=== PATIENT | male | born 1965 | race Caucasian/White ===

== ENCOUNTER 2017-04-29 19:07 | Observation (INO) | payer OTHER ==
[2017-04-29] MEDS ORDERED: Sodium Chloride 0.9% 2.5 ML Syringe FLUSH PRN (19:23)
[2017-04-29] MEDS ORDERED: Aspirin 81 MG Tab.Chew PO ONE (19:23)
[2017-04-29] MEDS ORDERED: Pantoprazole 40 MG Vial IVPUSH ONE (19:23)
[2017-04-29] MEDS ORDERED: Sodium Chloride 0.9% 10 ML Syringe FLUSH PRN (19:23)
[2017-04-29] MEDS ORDERED: Ondansetron 4 MG/2 ML SDV IVPUSH ONE (19:29)
--- NOTE | 2017-04-29 19:29 | EDM.PDOC ---
ED HPI GENERAL MEDICAL PROBLEM - General Chief Complaint: Chest Pain Stated Complaint: BP, PAIN ON THE RT SIDE OF BODY Time Seen by Provider: 04/29/17 19:14 - History of Present Illness INITIAL COMMENTS - FREE TEXT/NARRATIVE: HISTORY AND PHYSICAL: History of present illness: The patient is a 51-year-old male who follows at [facility] and has borderline hypercholesterolemia and hypertension for which he was placed on cholesterol meds but no blood pressure meds and presents with a long-standing history of several years of episodic left chest discomfort dating back to 2007. The patient states he has had evaluation of this in the past with a provider at [facility] and says he may have had a stress test here about a year ago and he says that he doesn't think much of this episodic left-sided chest pain as it occurs frequently and is not associated with activity or food ingestion. He has no GI history that he is aware of and no pulmonary history. The patient says that these episodes will happen on a daily basis and the last 4. Of time and it seemed to go away on their own. He presents today because for the last 1 week the episodes of been occurring more frequently and today the discomfort has been continuous. The pain does radiate to his shoulder on the left but not down his arm or to his jaw. It is not associated with shortness of breath or vomiting but he has had nausea with this discomfort. The patient says that he has had some dizziness over the last few days as well when he was working in some cabinets on his hands and knees he would get up and feel lightheaded but not dizzy and he would not pass out or blackout. He has no head neck or back pain and no extremity weakness or neurosensory changes. The patient did not take any medication prior to coming here. In the past he has not tried any over- the-counter meds for this discomfort. He has a significant social history only that he has several drinks per week but he has no smoking or drug use. His family history is significant for father who had an DC at 53 years of age but according to the patient and his father had a very poor lifestyle which contributed to his heart problems. He currently says he has difficulty describing the discomfort and rates it as a 5/10. Review of systems: As per history of present illness and below otherwise all systems reviewed and negative. Past medical history: As per history of present illness and as reviewed below otherwise noncontributory. Surgical history: As per history of present illness and as reviewed below otherwise noncontributory. Social history: No reported history of drug or alcohol abuse. Family history: As per history of present illness and as reviewed below otherwise noncontributory. Physical exam: Gen.: Well-developed well-nourished man who is nontoxic and overweight but is speaking clearly and easily in the ED. Vital signs of the note by me HEENT: Atraumatic, normocephalic, pupils reactive, negative for conjunctival pallor or scleral icterus, mucous membranes moist, throat clear, neck supple, nontender, trachea midline. Lungs: Clear to auscultation, breath sounds equal bilaterally, chest nontender. Heart: S1S2, regular, negative for clicks, rubs, or JVD. Abdomen: Soft, nondistended, nontender. Negative for masses or hepatosplenomegaly. Negative for costovertebral tenderness. Pelvis: Stable nontender. Genitourinary: Deferred. Rectal: Deferred. Extremities: Atraumatic, negative for cords or calf pain. Neurovascular unremarkable. No pedal edema or leg asymmetry Neuro: Awake, alert, oriented. Cranial nerves II through XII unremarkable. Cerebellum unremarkable. Motor and sensory unremarkable throughout. Exam nonfocal. Diagnostics: EKG chest x-ray CBC CMP troponin amylase lipase d-dimer INR Therapeutics: IV O2 monitor Protonix Zofran nitroglycerin aspirin Please note that according to the computer the patient did have a NM stress test on February 062015 which yielded an EF of 65% and no evidence of any ischemia I discussed with the patient and significant other at the bedside at length all testing results and have recommended observation admission. He says that this is been going on for so long he would prefer to do an outpatient workup at [facility] with a provider that he has there. He says that the discomfort did improve significantly and is almost gone after the nitroglycerin. I again cautioned him that he should be observed as this may be cardiac in etiology and he still declines. He understands bursa and benefits and would like to be discharged home. Impression: Episodic chest pain acute on chronic Definitive disposition and diagnosis as appropriate pending reevaluation and review of above. chest Pain Score (Numeric/FACES): 5 - Related Data Allergies Allergy/AdvReac Type Severity Reaction Status Date / Time Penicillins Allergy Cannot Verified 10/03/15 06:57 Remember Home Meds: Home Meds atorvaSTATin [Lipitor] 0 mg PO BEDTIME 04/29/17 [History] Past Medical History - Past Health History Medical/Surgical History: Denies Medical/Surgical History HEENT History: Reports: None Cardiovascular History: Reports: High Cholesterol Other Cardiovascular History: stress induced angina Respiratory History: Reports: None Gastrointestinal History: Reports: None Genitourinary History: Reports: Renal Calculus Musculoskeletal History: Reports: None Neurological History: Reports: None Psychiatric History: Reports: None Endocrine/Metabolic History: Reports: Obesity/BMI 30+ Hematologic History: Reports: None Immunologic History: Reports: None Dermatologic History: Reports: None - Infectious Disease History Infectious Disease History: Reports: None - Past Surgical History HEENT Surgical History: Reports: None Musculoskeletal Surgical History: Reports: Arthroscopic Knee Social & Family History - Family History Family Medical History: Noncontributory HEENT: Reports: None Cardiac: Reports: DC Endocrine/Metabolic: Reports: Diabetes, type II - Tobacco Use Smoking Status *Q: Never Smoker - Alcohol Use Days Per Week of Alcohol Use: 3 Number of Drinks Per Day: 4 Total Drinks Per Week: 12 - Recreational Drug Use Recreational Drug Use: No ED ROS GENERAL - Review of Systems Review Of Systems: ROS reveals no pertinent complaints other than HPI. ED EXAM, GENERAL - Physical Exam Exam: See Below (See dictation) Course - Vital Signs Last Recorded V/S: Last Vital Signs Temp 36.3 C 04/29/17 19:14 Pulse 82 04/29/17 20:05 Resp 17 04/29/17 20:05 BP 113/70 04/29/17 20:05 Pulse Ox 96 04/29/17 20:05 - Orders/Labs/Meds Orders: Active Orders 24 hr Category Date Time Status Cardiac Monitoring [RC] . DIRECTED Care 04/29/17 19:23 Active EKG Documentation Completion [RC] STAT Care 04/29/17 19:23 Active Oxygen Therapy, ED [RC] ASDIRECTED Care 04/29/17 19:23 Active Pulse Oximetry [RC] ASDIRECTED Care 04/29/17 19:23 Active Chest 1V Frontal [CR] Stat Exams 04/29/17 19:23 Taken Sodium Chloride 0.9% [Saline Flush] Med 04/29/17 19:23 Active 10 ml FLUSH ASDIRECTED PRN Sodium Chloride 0.9% [Saline Flush] Med 04/29/17 19:23 Active 2.5 ml FLUSH ASDIRECTED PRN Saline Lock Insert [OM.PC] Stat Oth 04/29/17 19:23 Ordered Medication Orders Sodium Chloride (Saline Flush) 10 ml FLUSH ASDIRECTED PRN PRN Reason: Keep Vein Open Last Admin: 04/29/17 19:48 Dose: 10 ml Sodium Chloride (Saline Flush) 2.5 ml FLUSH ASDIRECTED PRN PRN Reason: Keep Vein Open Last Admin: 04/29/17 19:50 Dose: 2.5 ml Labs: Laboratory Tests 04/29/17 04/29/17 04/29/17 Range/Units 19:44 19:44 19:44 WBC 5.78 (4.0-11.0) K/uL RBC 4.52 (4.50-5.90) M/uL Hgb 12.9 L (13.0-17.0) g/dL Hct 37.8 L (38.0-50.0) % MCV 83.6 (80.0-98.0) fL MCH 28.5 (27.0-32.0) pg MCHC 34.1 (31.0-37.0) g/dL RDW Std Deviation 39.5 (28.0-62.0) fl RDW Coeff of Kenneth 13 (11.0-15.0) % Plt Count 157 (150-400) K/uL MPV 9.40 (7.40-12.00) fL Neut % (Auto) 54.9 (48.0-80.0) % Lymph % (Auto) 29.9 (16.0-40.0) % [place] % (Auto) 9.5 (0.0-15.0) % Eos % (Auto) 4.7 (0.0-7.0) % Baso % (Auto) 1.0 (0.0-1.5) % Neut # (Auto) 3.2 (1.4-5.7) K/uL Lymph # (Auto) 1.7 (0.6-2.4) K/uL [place] # (Auto) 0.6 (0.0-0.8) K/uL Eos # (Auto) 0.3 (0.0-0.7) K/uL Baso # (Auto) 0.1 (0.0-0.1) K/uL Nucleated RBC % 0.0 /100WBC Nucleated RBCs # 0 K/uL INR 0.99 (0.86-1.11) D-Dimer, Quantitative 0.30 (0.0-0.52) mg/LFEU Sodium 142 (136-146) mmol/L Potassium 3.7 (3.5-5.1) mmol/L Chloride 109 (98-110) mmol/L Carbon Dioxide 24 (21-31) mmol/L BUN 17 (6.0-23.0) mg/dL Creatinine 1.1 (0.6-1.5) mg/dL Est Cr Clr Drug Dosing TNP Estimated GFR (MDRD) > 60.0 ml/min Glucose 114 H (60-110) mg/dL Calcium 8.9 (8.8-10.8) mg/dL Total Bilirubin 0.4 (0.1-1.5) mg/dL AST 26 (5-40) IU/L ALT 42 (8-54) IU/L Alkaline Phosphatase 96 (40-150) Troponin I < 0.10 (0.0-0.29) NG/ML Total Protein 6.8 (6.0-8.0) g/dL Albumin 3.8 (3.5-5.0) g/dL Globulin 3.0 (2.0-3.5) g/dL Albumin/Globulin Ratio 1.3 (1.3-2.8) Amylase 45 (10-90) U/L Lipase 24 (7-80) U/L Meds: Medications Generic Name Dose Route Start Last Admin Trade Name Freq PRN Reason Stop Dose Admin Sodium Chloride 10 ml 04/29/17 19:23 04/29/17 19:48 Saline Flush FLUSH 10 ml ASDIRECTED PRN Administration Keep Vein Open Sodium Chloride 2.5 ml 04/29/17 19:23 04/29/17 19:50 Saline Flush FLUSH 2.5 ml ASDIRECTED PRN Administration Keep Vein Open Discontinued Medications Generic Name Dose Route Start Last Admin Trade Name Freq PRN Reason Stop Dose Admin Aspirin 324 mg 04/29/17 19:23 04/29/17 19:49 Aspirin PO 04/29/17 19:24 324 mg ONETIME ONE Administration Nitroglycerin 0.4 mg 04/29/17 19:30 04/29/17 20:00 Nitrostat SL 04/29/17 19:41 0.4 mg Q5M REINA Administration Ondansetron HCl 4 mg 04/29/17 19:29 04/29/17 19:51 Zofran IVPUSH 04/29/17 19:30 4 mg ONETIME ONE Administration Pantoprazole Sodium 80 mg 04/29/17 19:23 04/29/17 19:56 Protonix Iv IVPUSH 04/29/17 19:24 80 mg .BOLUS ONE Administration Departure - Departure Time of Disposition: 20:38 Disposition: Home, Self-Care 01 Condition: Good Clinical Impression: Chest pain Qualifiers: Chest pain type: unspecified Qualified Code(s): R07.9 - Chest pain, unspecified - Discharge Information Referrals: Josie Betancur RECORDS SUPERVISOR [Primary Care Provider] - Forms: ED Department Discharge Additional Instructions: The following information is given to patients seen in the emergency department who are being discharged to home. This information is to outline your options for follow-up care. We provide all patients seen in our emergency department with a follow-up referral. The need for follow-up, as well as the timing and circumstances, are variable depending upon the specifics of your emergency department visit. If you don't have a primary care physician on staff, we will provide you with a referral. We always advise you to contact your personal physician following an emergency department visit to inform them of the circumstance of the visit and for follow-up with them and/or the need for any referrals to a consulting specialist. The emergency department will also refer you to a specialist when appropriate. This referral assures that you have the opportunity for followup care with a specialist. All of these measure are taken in an effort to provide you with optimal care, which includes your followup. Under all circumstances we always encourage you to contact your private physician who remains a resource for coordinating your care. When calling for followup care, please make the office aware that this follow-up is from your recent emergency room visit. If for any reason you are refused follow-up, please contact the [facility] emergency department at and ask to speak to the emergency department charge nurse. [facility] [address] [place] [address] [facility] Primary [facility]- [facility] [address], [place] [address] Please contact her provider at [facility] for further care and evaluation as soon as you're able as we discussed. Please take 325 milligrams Ecotrin aspirin every day until you're followed up in the clinic. Please return to ER as needed and as we discussed. - My Orders Last 24 Hours: My Active Orders 04/29/17 19:23 Cardiac Monitoring [RC] . DIRECTED EKG Documentation Completion [RC] STAT Oxygen Therapy, ED [RC] ASDIRECTED Pulse Oximetry [RC] ASDIRECTED Chest 1V Frontal [CR] Stat Sodium Chloride 0.9% [Saline Flush] 10 ml FLUSH ASDIRECTED PRN Sodium Chloride 0.9% [Saline Flush] 2.5 ml FLUSH ASDIRECTED PRN Saline Lock Insert [OM.PC] Stat - Assessment/Plan Last 24 Hours: My Active Orders 04/29/17 19:23 Cardiac Monitoring [RC] . DIRECTED EKG Documentation Completion [RC] STAT Oxygen Therapy, ED [RC] ASDIRECTED Pulse Oximetry [RC] ASDIRECTED Chest 1V Frontal [CR] Stat Sodium Chloride 0.9% [Saline Flush] 10 ml FLUSH ASDIRECTED PRN Sodium Chloride 0.9% [Saline Flush] 2.5 ml FLUSH ASDIRECTED PRN Saline Lock Insert [OM.PC] Stat
[2017-04-29] MEDS: Nitroglycerin 0.4 MG Tab.SL SL SCH ×3 (19:50→20:00)
[2017-04-29 20:17] LABS: CHLORIDE,CL 109 mmol/L (98-110); SODIUM,NA 142 mmol/L (136-146)
[2017-04-29] MEDS ORDERED: Nitroglycerin 2% Oint 1 GM UD Packet TOP ONE (20:57)
[2017-04-29] MEDS ORDERED: Morphine 2 MG/ML Syringe IVPUSH PRN (22:43)
[2017-04-30] MEDS: Acetaminophen 325 MG Tab PO PRN ×2 (00:20→08:23)
[2017-04-30 08:52] VITALS: BP 136/77
--- NOTE | 2017-04-30 11:17 | CR ---
EXAM DATE: 04/29/17 PATIENT'S AGE: 51 Patient: HAL FUENTES Facility: [place], [place] Site . Site : [id number] Study: XRay Chest [id number]/16/2017 8:21:17 PM Ordering Physician: Maykel Edmondson Final Report: INDICATION: CHEST PAIN, SOB X1 WEEK TECHNIQUE: Chest 1 view COMPARISON: January 09, 2016 FINDINGS: Cardiovascular and mediastinum: Heart size and vasculature are normal in caliber and appearance. Mediastinum is within normal limits. Lungs and pleural space: No focal consolidation. No sign of pleural effusion. No pneumothorax. Bones and soft tissues: No significant findings. IMPRESSION: No acute cardiopulmonary disease. Dictated by Fei Lee MD @ 04/29/2017 8:25:37 PM Dictated by: Fei Lee MD @ 04/29/2017 20:25:46 (Electronic Signature) Report Signed by Proxy. [facility]
--- NOTE | 2017-04-30 13:32 | PCM.HP ---
H&P History of Present Illness - General Date of Service: 04/30/17 Admit Problem/Dx: Admission Diagnosis/Problem Admission Diagnosis/Problem Chest pain Source of Information: Patient History Limitations: Reports: No Limitations - History of Present Illness Initial Comments - Free Text/Narative: 51-year-old male with a history of hyperlipidemia presented to the emergency department with a chief complaint of chest pain with one-week onset. This patient was admitted for ACS rule out. He tells me that he did not have any significant further episodes of chest pain while admitted at the hospital when seen in the following morning. He was placed on telemetry, troponin 3 were trended all of which were unremarkable. At the time of discharge, he had no episodes of chest Pain. He had no other complaints. Denies shortness of breath. ER course: Troponin 1 negative Given nitroglycerin, pantoprazole, Zofran, full dose aspirin CBC, d-dimer, CMP are unremarkable. Chest x-ray unremarkable Headache Pain Score (Numeric/FACES): 3 chest Pain Score (Numeric/FACES): 2 - Related Data Allergies/Adverse Reactions: Allergies Allergy/AdvReac Type Severity Reaction Status Date / Time Penicillins Allergy Cannot Verified 10/03/15 06:57 Remember Home Medications: Home Meds atorvaSTATin [Lipitor] 0 mg PO BEDTIME 04/29/17 [History] Past Medical History - Past Health History Medical/Surgical History: Denies Medical/Surgical History HEENT History: Reports: None Cardiovascular History: Reports: High Cholesterol Other Cardiovascular History: stress induced angina Respiratory History: Reports: None Gastrointestinal History: Reports: None Genitourinary History: Reports: Renal Calculus Musculoskeletal History: Reports: None Neurological History: Reports: None Psychiatric History: Reports: None Endocrine/Metabolic History: Reports: Obesity/BMI 30+ Hematologic History: Reports: None Immunologic History: Reports: None Dermatologic History: Reports: None - Infectious Disease History Infectious Disease History: Reports: None - Past Surgical History HEENT Surgical History: Reports: None Musculoskeletal Surgical History: Reports: Arthroscopic Knee Social & Family History - Family History Family Medical History: Noncontributory HEENT: Reports: None Cardiac: Reports: ME Endocrine/Metabolic: Reports: Diabetes, type II - Tobacco Use Smoking Status *Q: Former Smoker Used Tobacco, but Quit: Yes Month Tobacco Last Used: December Second Hand Smoke Exposure: No - Caffeine Use Caffeine Use: Reports: Coffee, Soda, Tea - Alcohol Use Days Per Week of Alcohol Use: 2 Number of Drinks Per Day: 3 Total Drinks Per Week: 6 - Recreational Drug Use Recreational Drug Use: No H&P Review of Systems - Review of Systems: Review Of Systems: See Below General: Reports: No Symptoms HEENT: Reports: No Symptoms Pulmonary: Reports: No Symptoms Cardiovascular: Reports: Chest Pain. Denies: Dyspnea on Exertion, Orthopnea, PND, Edema, Lightheadedness, Syncope Gastrointestinal: Reports: No Symptoms Genitourinary: Reports: No Symptoms Musculoskeletal: Reports: No Symptoms Skin: Reports: No Symptoms Psychiatric: Reports: No Symptoms Neurological: Reports: No Symptoms Hematologic/Lymphatic: Reports: No Symptoms Immunologic: Reports: No Symptoms Exam - Exam Exam: See Below - Vital Signs Vital Signs: Last Vital Signs Temp 36.1 C 04/30/17 08:00 Pulse 77 04/30/17 08:00 Resp 18 04/30/17 08:00 BP 136/77 04/30/17 08:00 Pulse Ox 95 04/30/17 08:00 Weight: 127.233 kg - Exam General: Alert, Oriented, Cooperative HEENT: Conjunctiva Clear, EACs Clear, EOMI Neck: Supple, Trachea Midline Lungs: Clear to Auscultation, Normal Respiratory Effort Cardiovascular: Regular Rate, Regular Rhythm GI/Abdominal Exam: Normal Bowel Sounds, Soft, Non-Tender, No Organomegaly Back Exam: Normal Inspection, Full Range of Motion Extremities: Normal Inspection, Normal Range of Motion, Non-Tender, No Pedal Edema Peripheral Pulses: 2+: Dorsalis Pedis (L), Dorsalis Pedis (R) Skin: Warm, Dry, Intact Neurological: Cranial Nerves Intact, Reflexes Equal Bilateral - Patient Data Lab Results Last 24 hrs: Laboratory Results - last 24 hr 04/30/17 04/30/17 Range/Units 01:50 07:40 Troponin I < 0.10 < 0.10 (0.0-0.29) NG/ML Result Diagrams: 04/29/17 19:44 04/29/17 19:44 *Q Meaningful Use (ADM) - VTE *Q VTE Criteria *Q: - Stroke *Q Stroke Criteria *Q: - AMI *Q AMI Criteria *Q: Problem List Initiated/Reviewed/Updated: Yes Orders Last 24hrs: Active Orders 24 hr Category Date Time Status Antiembolic Devices [RC] Q12H Care 04/30/17 01:59 Active Discontinue Telemetry Monitoring [Cardiac Monitoring Care 04/30/17 10:55 Active Discontinue] [RC] Click to Edit May Shower [RC] ASDIRECTED Care 04/29/17 22:48 Active Ready for Discharge [RC] PER UNIT ROUTINE Care 04/30/17 09:17 Active Telemetry Monitoring [Cardiac Monitoring] [RC] Q8H Care 04/29/17 22:00 Active Sequential Compression Device [OM.PC] Routine Oth 04/29/17 23:00 Ordered Assessment/Plan Comment:: Assessment: #1. Chest pain #2. ACS rule out #3. History of hyperlipidemia, obesity Plan: #1. Admit to the floor for observation #2. Troponin 2 every 6 hours #3. Vital signs per floor routine #4. Cardiac telemetry Discharge summary: Admission date April 29, 2017 Discharge date April 30, 2017 Admission diagnosis: #1. Chest pain #2. ACS rule out #3. History of hyperlipidemia, obesity Discharge diagnosis: #1. Acute Jimenez syndrome ruled out #2. Chest pain resolved #3. History of hyperlipidemia, obesity Hospital course: 51-year-old male with a history of hyperlipidemia and obesity that presented to the emergency department on April 29 complaining of chest pain for 1 week onset. He was admitted for an ACS rule out. Telemetry and labs are unremarkable. At the time of discharge, the patient had no symptoms. He is to follow-up with the primary care provider, Dr. Chandler. He is also to get outpatient stress test. He is advised this could likely represent coronary artery disease such as angina. He is advised to return if he expresses any chest pain, palpitations, shortness of breath. Patient agrees to the plan. Disposition: To home Condition ON discharge: Stable
== END 2017-04-30 10:40 | disposition home or self-care (01) ==
LOC: MW.ED 19:07 → MW.MS 20:57
PROVIDERS: ADMIT Internal Medicine; ATTEND Internal Medicine
DX: R07.9 Chest pain, unspecified (principal); E78.00 Pure hypercholesterolemia, unspecified; I20.8 Other forms of angina pectoris; E11.9 Type 2 diabetes mellitus without complications; I25.2 Old myocardial infarction; E66.9 Obesity, unspecified; Z88.0 Allergy status to penicillin; Z79.899 Other long term (current) drug therapy; Z87.442 Personal history of urinary calculi; Z98.890 Other specified postprocedural states; Z87.891 Personal history of nicotine dependence
CPT/HCPCS: 36415; 71010; 80053; 82150; 83690; 84484; 85025; 85379; 85610; 93005; 96374; 96375; 99285; A9270; C9113; J2405; 99283; G0378

== ENCOUNTER 2017-09-14 09:43 | Day surgery (SDC) | payer OTHER ==
[~2017-09-14 09:43] MED LIST: Bupivacaine 0.5% 30 ML SDV ONE; Clindamycin Phosphate in D5W 600 MG in Premix Bag 50 BAG IV ONE; Lactated Ringers 1,000 ML IV SCH
--- NOTE | 2017-09-14 10:44 | PCM.PREANE ---
Preanesthetic Assessment - Anesthesia/Transfusion/Family Hx Anesthesia History: No Prior Anesthesia Family History of Anesthesia Reaction: No Transfusion History: No Prior Transfusion(s) Intubation History: Unknown (no history of intubation) - Review of Systems General: No Symptoms Pulmonary: No Symptoms Cardiovascular: No Symptoms Gastrointestinal: No Symptoms Neurological: No Symptoms Other: Reports: None - Physical Assessment Height: 1.85 m Weight: 124.738 kg ASA Class: 2 Mental Status: Alert & Oriented x3 Airway Class: Mallampati = 3 Dentition: Reports: Missing Tooth/Teeth (multiple ) Thyro-Mental Finger Breadths: 2 Mouth Opening Finger Breadths: 2 ROM/Head Extension: Full Lungs: Clear to Auscultation, Normal Respiratory Effort Cardiovascular: Regular Rate, Regular Rhythm - Allergies Allergies/Adverse Reactions: Allergies Allergy/AdvReac Type Severity Reaction Status Date / Time Penicillins Allergy Cannot Verified 09/09/17 11:44 Remember - Blood Blood Available: No - Anesthesia Plan Pre-Op Medication Ordered: None - Acknowledgements Anesthesia Type Planned: MAC Pt an Appropriate Candidate for the Planned Anesthesia: Yes Alternatives and Risks of Anesthesia Discussed w Pt/Guardian: Yes Pt/Guardian Understands and Agrees with Anesthesia Plan: Yes PreAnesthesia Questionnaire - Past Health History Medical/Surgical History: Denies Medical/Surgical History HEENT History: Reports: None Cardiovascular History: Reports: High Cholesterol, Hypertension Respiratory History: Reports: Sleep Apnea Other Respiratory History: uses CPAP Gastrointestinal History: Reports: None Genitourinary History: Reports: Renal Calculus, Other (See Below) Other Genitourinary History: "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" Musculoskeletal History: Reports: Fracture Other Musculoskeletal History: hx fx left arm Neurological History: Reports: None Psychiatric History: Reports: Anxiety, Depression Other Psychiatric History: depression and anxiety in the past, none recently Endocrine/Metabolic History: Reports: Obesity/BMI 30+ Hematologic History: Reports: None Immunologic History: Reports: None Dermatologic History: Reports: None - Infectious Disease History Infectious Disease History: Reports: None - Past Surgical History Head Surgeries/Procedures: Reports: None HEENT Surgical History: Reports: None Cardiovascular Surgical History: Reports: None Musculoskeletal Surgical History: Reports: Other (See Below) (tendon repair left knee under local anesthesia) - SUBSTANCE USE Smoking Status *Q: Former Smoker Tobacco Use Within Last Twelve Months: No Second Hand Smoke Exposure: No Days Per Week of Alcohol Use: 2 Number of Drinks Per Day: 3 Total Drinks Per Week: 6 Recreational Drug Use History: No - HOME MEDS Home Medications: Home Meds Hydrochlorothiazide 25 mg PO BEDTIME 09/09/17 [History] - CURRENT (IN HOUSE) MEDS Current Meds: Current Medications Lactated Ringer's (Ringers, Lactated) 1,000 mls @ 125 mls/hr IV ASDIRECTED REINA Discontinued Medications Bupivacaine HCl (Marcaine 0.5%) Confirm Administered Dose 30 ml .ROUTE .STK-MED ONE Stop: 09/14/17 07:23 Clindamycin Phosphate 600 mg/ (Sodium Chloride) 54 mls @ 100 mls/hr IV ONETIME ONE Stop: 09/13/17 22:46 Clindamycin Phosphate 600 mg/ (Premix) 50 mls @ 100 mls/hr IV ONETIME ONE Stop: 09/13/17 22:59
[2017-09-14] MEDS ORDERED: Clindamycin Phosphate in D5W 50 ML ONE (10:54)
[2017-09-14] MEDS ORDERED: Lidocaine 2% 5 ML SDV ONE (11:08)
[2017-09-14] MEDS ORDERED: Ondansetron 4 MG/2 ML SDV ONE (11:09)
[2017-09-14] MEDS ORDERED: Midazolam 1 MG/ML 2 ML SDV ONE (11:09)
[2017-09-14] MEDS ORDERED: fentaNYL 100 MCG/2 ML SDV ONE (11:09)
[2017-09-14] MEDS ORDERED: Propofol 200 MG/20 ML SDV ONE ×3 (11:09→12:03)
[2017-09-14] MEDS ORDERED: Lidocaine 1% 20 ML MDV ONE (11:31)
[2017-09-14] MEDS ORDERED: fentaNYL 100 MCG/2 ML SDV IVPUSH PRN (12:09)
[2017-09-14] MEDS ORDERED: Arista AH Absorbable Hemostat ONE (12:12)
--- NOTE | 2017-09-14 12:16 | PN ---
PATIENT IDENTIFICATION: The patient is a 52-year-old male. TIME: Approximately, 11:00 a.m. PREOPERATIVE DIAGNOSIS: Painful mass, right foot. PLANNED PROCEDURE: Excision of mass, right foot. CONSENT: Signed and in the chart. ANESTHESIA: MAC with local. The patient confirms n.p.o. since midnight. The H and P was completed by Dr. Barrios with no contraindications noted to surgery. ALLERGIES: The patient is allergic to penicillin. MEDICATIONS: The patient is currently on no medications. PAST MEDICAL HISTORY: Significant for hypertension, anxiety, depression, kidney stones, and sleep apnea. IMAGING: The patient had a chest x-ray with no evidence of acute cardiopulmonary disease. LABORATORY DATA: White blood cells 5.83, red blood cells 5.17, hemoglobin 13.8, hematocrit 43.7, platelets 205. Glucose 103, calcium 9.5, BUN 13, creatinine 1.03, sodium 145, potassium 4.3, chloride 104, CO2 of 28. IMPRESSION: The patient presents for excision of right foot mass today. All questions answered. The risks and benefits have been explained, and no guarantees have been expressed or implied. GREY HEAD /[id number]
[2017-09-14] MEDS ORDERED: Acetaminophen/HYDROcodone 325-5 MG Tab PO PRN (12:45)
--- NOTE | 2017-09-14 12:52 | PCM.OPNOTE ---
- General Post-Op/Procedure Note Date of Surgery/Procedure: 09/14/17 Operative Procedure(s): excision of mass right foot Anesthesia Technique: Local (10 cc of 1:1 mixture of 1% lidocaine plain and 0.5 % marcaine plain), MAC Primary Surgeon: Lance Keith Pathology: soft tissue from excised mass right foot EBL in mLs: 20 Complications: none Condition: Good Free Text/Narrative:: injectables: 8 cc of 1:1 mixture of 1% lidocaine plain and 0.5% marcaine plain materials: 4-0 vicryl, 4-0 prolene
--- NOTE | 2017-09-14 13:15 | PCM48HPAN ---
Post Anesthesia Note - EVALUATION WITHIN 48HRS OF ANESTHETIC Vital Signs in Normal Range: Yes Patient Participated in Evaluation: Yes Respiratory Function Stable: Yes Airway Patent: Yes Cardiovascular Function Stable: Yes Hydration Status Stable: Yes Pain Control Satisfactory: Yes Nausea and Vomiting Control Satisfactory: Yes Mental Status Recovered: Yes Resp Rate: 17 - COMMENTS/OBSERVATIONS Free Text/Narrative:: no anesthesia problems
[2017-09-14 13:46] VITALS: BP 121/92
--- NOTE | 2017-09-14 16:16 | OR ---
SURGEON: Lance Keith DPM DATE OF PROCEDURE: 09/14/2017 PREOPERATIVE DIAGNOSIS: Painful mass, right foot. POSTOPERATIVE DIAGNOSIS: Painful mass, right foot. OPERATIVE PROCEDURE: Excision of mass, right foot. ANESTHESIA: MAC with local. A local block consisted of a 1:1 mixture of 1% lidocaine plain and 0.5% Marcaine plain, totaling 10 mL. HEMOSTASIS: Combination of an Esmarch bandage applied about the rear foot and later after an Esmarch bandage exsanguination, above ankle pneumatic tourniquet inflated to a pressure of 250 mmHg. PATHOLOGY: Soft tissue excised from the area of the mass, right foot. ESTIMATED BLOOD LOSS: 20 mL. MATERIALS: Dary hemostatic agent, 4-0 Vicryl, 4-0 Prolene. INJECTABLES: At the conclusion of procedure, 8 mL of 1:1 mixture of 0.5% Marcaine plain with 1% lidocaine plain was infiltrated about the surgical site on the right foot proximal to the second and third toes. JUSTIFICATION FOR PROCEDURE: The patient has been suffering for several months from sharp pain due to a small, but potentially deep mass located just proximal to the second web space, that is between the bases or just proximal to the bases of the second and third toes of the right foot. The patient has noticed changes to the mass, which was initially superficial with a bright red appearance and then subsided, but appeared to go deeper. I discussed with the patient on multiple office visits, options to excise, or to wait out the mass for further changes; however, the patient's increasing pain as dictated that we proceed with excision and out of an abundance of caution. I recommended excision to be done in the operating room due to the potential deep nature of this mass. PROCEDURE IN DETAIL: Excision of mass, right foot. Incision was planned running from proximal to distal approximately 6 mm in length between the 2nd and 3rd rays of the right foot, essentially between the 2nd and 3rd metatarsophalangeal joints of the right foot on the plantar aspect. Esmarch bandage exsanguination was performed. An Esmarch bandage was held in place over the rear foot; however, the above ankle pneumatic tourniquet was not inflated at this time. Incision was then commenced and after incision with 15 blade down to subcutaneous layer, the curved mosquito hemostat was utilized to further dissect and probed for substance of the mass. This resulted in an immediate release of a stream of blood from the area of the mass indicating possible deep hematoma being released. Tissue was removed from this area and placed in formalin filled container for gross and histologic examination by pathology. The area was flushed with copious amounts of normal sterile saline, reinspected. At this point, bleeding became more intense and was cauterized with Bovie, and a full Esmarch bandage exsanguination of the foot was performed, and the pneumatic above ankle tourniquet was inflated to a pressure of 250 mmHg to allow for further probing with hemostasis. Additional tissue was removed and the area was flushed with copious amounts of normal sterile saline. Less than 1 g of Dary AH hemostatic agent was utilized to further stem any bleeding and closure was performed with the deep and subcutaneous tissues closed with 4-0 Vicryl suture and the superficial skin with 4-0 Prolene sutures. Betadine-soaked Xeroform gauze was placed over the incision site. The final local anesthesia was delivered and injected about the incision site, 8 mL total of a 1:1 mix of 1% lidocaine plain and 0.5% Marcaine plain. Kerlix gauze was placed over fluff gauze and all dressing secured with an Celestino bandage as the pneumatic tourniquet was deflated after 24 minutes of being utilized. Immediate hyperemic response was noted to all digits of the right foot. The patient tolerated the anesthesia and the procedure well. The patient was transported from the operating room to the recovery room with vital signs stable, and neurovascular status intact to the right foot. The patient was verbal prior to leaving the operating room, and the patient is to be discharged shortly with prescription for adequate analgesic care. The patient has his own crutches and will minimize weightbearing. A postoperative shoe was affixed to the patient's foot for protection. The patient is scheduled to be seen in my office in two days on September 16. The patient has my phone number should any concerns arise. At last, checked the dressings to the patient that are clean, dry, and intact. The patient has also been provided with a shower bag for bathing in order to keep the dressings clean, dry, and intact. GREY / ADILENE /[id number]
== END 2017-09-14 13:29 | disposition home or self-care (01) ==
LOC: MW.SDS 09:43
PROVIDERS: ATTEND Podiatrist Foot & Ankle Surgery
DX: G57.61 Lesion of plantar nerve, right lower limb (principal); I10 Essential (primary) hypertension; E78.00 Pure hypercholesterolemia, unspecified; G47.30 Sleep apnea, unspecified; F41.9 Anxiety disorder, unspecified; F32.9 Major depressive disorder, single episode, unspecified; E66.9 Obesity, unspecified; Z87.891 Personal history of nicotine dependence; Z79.899 Other long term (current) drug therapy; Z98.890 Other specified postprocedural states; Z88.0 Allergy status to penicillin
CPT/HCPCS: 28080; 88305; J2250; J2405; J3010; 00400; J2704

== ENCOUNTER 2018-01-03 09:00 | Emergency (ER) | payer OTHER ==
[2018-01-03 09:10] VITALS: BP 151/97
--- NOTE | 2018-01-03 09:27 | EDM.PDOC ---
ED HPI GENERAL MEDICAL PROBLEM - General Chief Complaint: Abdominal Pain Stated Complaint: LOWER ABD PAIN Time Seen by Provider: 01/03/18 09:17 - History of Present Illness INITIAL COMMENTS - FREE TEXT/NARRATIVE: HISTORY AND PHYSICAL: History of present illness: Patient 52-year-old male presents with acute right lower quadrant abdominal pain no vomiting no diarrhea no fever chills he denies any complaints or other concerns he denies trauma his only surgeries been prior foot surgery and he does have history of hypertension Review of systems: As per history of present illness and below otherwise all systems reviewed and negative. Past medical history: As per history of present illness and as reviewed below otherwise noncontributory. Surgical history: As per history of present illness and as reviewed below otherwise noncontributory. Social history: No reported history of drug or alcohol abuse. Family history: As per history of present illness and as reviewed below otherwise noncontributory. Physical exam: HEENT: Atraumatic, normocephalic, pupils reactive, negative for conjunctival pallor or scleral icterus, mucous membranes moist, throat clear, neck supple, nontender, trachea midline. Lungs: Clear to auscultation, breath sounds equal bilaterally, chest nontender. Heart: S1S2, regular, negative for clicks, rubs, or JVD. Abdomen: Soft, nondistended, localized tenderness in right lower quadrant no rebound no guarding Negative for masses or hepatosplenomegaly. Negative for costovertebral tenderness. Pelvis: Stable nontender. Genitourinary: Normal exam no hernia Rectal: Deferred. Extremities: Atraumatic, negative for cords or calf pain. Neurovascular unremarkable. Neuro: Awake, alert, oriented. Cranial nerves II through XII unremarkable. Cerebellum unremarkable. Motor and sensory unremarkable throughout. Exam nonfocal. Diagnostics: CBC CMP UA CT abdomen and pelvis Therapeutics: Normal saline 1 L bolus Impression: #1 acute right lower quadrant abdominal pain Definitive disposition and diagnosis as appropriate pending reevaluation and review of above. lower abdomen Pain Score (Numeric/FACES): 6 - Related Data Allergies Allergy/AdvReac Type Severity Reaction Status Date / Time Penicillins Allergy Cannot Verified 01/03/18 09:09 Remember Home Meds: Home Meds . 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" Musculoskeletal History: Reports: Fracture Other Musculoskeletal History: hx fx left arm Neurological History: Reports: None Psychiatric History: Reports: Anxiety, Depression Other Psychiatric History: depression and anxiety in the past, none recently Endocrine/Metabolic History: Reports: Obesity/BMI 30+ Hematologic History: Reports: None Immunologic History: Reports: None Dermatologic History: Reports: None - Infectious Disease History Infectious Disease History: Reports: Chicken Pox - Past Surgical History Head Surgeries/Procedures: Reports: None HEENT Surgical History: Reports: None Cardiovascular Surgical History: Reports: None Musculoskeletal Surgical History: Reports: Other (See Below) Other Musculoskeletal Surgeries/Procedures:: Right Foot surgery Social & Family History - Family History Family Medical History: Noncontributory HEENT: Reports: None Cardiac: Reports: CT Endocrine/Metabolic: Reports: Diabetes, type II - Tobacco Use Smoking Status *Q: Never Smoker - Caffeine Use Caffeine Use: Reports: Coffee - Recreational Drug Use Recreational Drug Use: No ED ROS GENERAL - Review of Systems Review Of Systems: ROS reveals no pertinent complaints other than HPI. ED EXAM, GENERAL - Physical Exam Exam: See Below (The dictation) Course - Vital Signs Last Recorded V/S: Last Vital Signs Temp 36.9 C 01/03/18 09:06 Pulse 98 01/03/18 09:06 Resp 16 01/03/18 09:06 BP 151/97 H 01/03/18 09:06 Pulse Ox 96 01/03/18 09:06 - Orders/Labs/Meds Orders: Active Orders 24 hr Category Date Time Status UA W/MICROSCOPIC [URIN] Stat Lab 01/03/18 09:21 Ordered Labs: Laboratory Tests 01/03/18 01/03/18 01/03/18 Range/Units 09:20 09:20 09:21 WBC 8.01 (4.0-11.0) K/uL RBC 5.03 (4.50-5.90) M/uL Hgb 14.4 (13.0-17.0) g/dL Hct 41.2 (38.0-50.0) % MCV 81.9 (80.0-98.0) fL MCH 28.6 (27.0-32.0) pg MCHC 35.0 (31.0-37.0) g/dL RDW Std Deviation 40.3 (28.0-62.0) fl RDW Coeff of Kenneth 13 (11.0-15.0) % Plt Count 158 (150-400) K/uL MPV 9.40 (7.40-12.00) fL Neut % (Auto) 74.0 (48.0-80.0) % Lymph % (Auto) 14.4 L (16.0-40.0) % [place] % (Auto) 8.0 (0.0-15.0) % Eos % (Auto) 3.2 (0.0-7.0) % Baso % (Auto) 0.4 (0.0-1.5) % Neut # (Auto) 5.9 H (1.4-5.7) K/uL Lymph # (Auto) 1.2 (0.6-2.4) K/uL [place] # (Auto) 0.6 (0.0-0.8) K/uL Eos # (Auto) 0.3 (0.0-0.7) K/uL Baso # (Auto) 0.0 (0.0-0.1) K/uL Nucleated RBC % 0.0 /100WBC Nucleated RBCs # 0 K/uL Sodium 136 (136-148) mmol/L Potassium 3.9 (3.5-5.1) mmol/L Chloride 103 (98-107) mmol/L Carbon Dioxide 26.0 (21.0-32.0) mmol/L BUN 15 (7.0-18.0) mg/dL Creatinine 1.2 (0.8-1.3) mg/dL Est Cr Clr Drug Dosing 82.30 mL/min Estimated GFR (MDRD) > 60.0 ml/min Glucose 97 (74-106) mg/dL Calcium 9.0 (8.5-10.1) mg/dL Total Bilirubin 0.4 (0.2-1.0) mg/dL AST 26 (15-37) IU/L ALT 47 (14-63) IU/L Alkaline Phosphatase 123 H (46-116) U/L Total Protein 7.4 (6.4-8.2) g/dL Albumin 3.8 (3.4-5.0) g/dL Globulin 3.6 H (2.0-3.5) g/dL Albumin/Globulin Ratio 1.1 L (1.3-2.8) Urine Color YELLOW Urine Appearance CLEAR Urine pH 5.5 (5.0-8.0) Ur Specific [place] >= 1.030 (1.001-1.035) Urine Protein 100 (NEGATIVE) mg/dL Urine Glucose (UA) NEGATIVE (NEGATIVE) mg/dL Urine Ketones NEGATIVE (NEGATIVE) mg/dL Urine Occult Blood LARGE H (NEGATIVE) Urine Nitrite NEGATIVE (NEGATIVE) Urine Bilirubin NEGATIVE (NEGATIVE) Urine Urobilinogen 0.2 (<2.0) EU/dL Ur Leukocyte Esterase NEGATIVE (NEGATIVE) Urine RBC 4-6 (0-2/HPF) Urine WBC 0-2 (0-5/HPF) Ur Epithelial Cells FEW (NONE-FEW) Urine Bacteria FEW (NEGATIVE) Meds: Medications Discontinued Medications Generic Name Dose Route Start Last Admin Trade Name Freq PRN Reason Stop Dose Admin Sodium Chloride 1,000 mls @ 999 mls/hr 01/03/18 09:28 01/03/18 09:58 Normal Saline IV 01/03/18 10:28 999 mls/hr STAT ONE Administration Departure - Departure Time of Disposition: 11:16 Disposition: Home, Self-Care 01 Condition: Good Clinical Impression: Abdominal pain - Discharge Information Referrals: PCP,None [Primary Care Provider] - Forms: ED Department Discharge Additional Instructions: The following information is given to patients seen in the emergency department who are being discharged to home. This information is to outline your options for follow-up care. We provide all patients seen in our emergency department with a follow-up referral. The need for follow-up, as well as the timing and circumstances, are variable depending upon the specifics of your emergency department visit. If you don't have a primary care physician on staff, we will provide you with a referral. We always advise you to contact your personal physician following an emergency department visit to inform them of the circumstance of the visit and for follow-up with them and/or the need for any referrals to a consulting specialist. The emergency department will also refer you to a specialist when appropriate. This referral assures that you have the opportunity for followup care with a specialist. All of these measure are taken in an effort to provide you with optimal care, which includes your followup. Under all circumstances we always encourage you to contact your private physician who remains a resource for coordinating your care. When calling for followup care, please make the office aware that this follow-up is from your recent emergency room visit. If for any reason you are refused follow-up, please contact the [facility] emergency department at and asked to speak to the emergency department charge nurse. [facility] - General Surgery Professional Building [address] [place] [address], [address] [place] [address] Follow-up primary medical doctor for reevaluation call to schedule appointment general surgery referral above as needed as discussed return as needed as discussed - My Orders Last 24 Hours: My Active Orders 01/03/18 09:21 UA W/MICROSCOPIC [URIN] Stat - Assessment/Plan Last 24 Hours: My Active Orders 01/03/18 09:21 UA W/MICROSCOPIC [URIN] Stat
[2018-01-03] MEDS ORDERED: Sodium Chloride 0.9% 1,000 ML IV ONE (09:28)
[2018-01-03 10:05] LABS: CHLORIDE,CL 103 mmol/L (98-107); SODIUM,NA 136 mmol/L (136-148)
--- NOTE | 2018-01-03 10:22 | CT ---
CT of the abdomen and pelvis without contrast. HISTORY: Pain TECHNIQUE: Axial CT images were obtained of the abdomen and pelvis without contrast. Coronal and sagi ttal reconstructions obtained. FINDINGS: The lung bases are clear, no pleural effusion. There is moderate fatty infiltration of the liver. The spleen, adrenal glands, and pancreas appear un remarkable for noncontrast examination. The gallbladder appears normal. There is no bulky retroperit martinez lymphadenopathy. No abdominal ascites. There are no calcifications noted within the kidneys or along the courses of the ureters bilaterally. The large and small bowel are normal in caliber without evidence of obstruction. The appendix appears normal. There is no bulky pelvic lymphadenopathy. No free fluid. No free air. The urinary bladder ap pears normal. Minimal fat-containing left inguinal hernia. The visualized osseous structures appear normal. IMPRESSION: 1. No acute findings within the abdomen or pelvis. 2. Moderate fatty infiltration of the liver.
== END 2018-01-03 11:30 | disposition home or self-care (01) ==
LOC: MW.ED 09:00
DX: R10.31 Right lower quadrant pain (principal); I10 Essential (primary) hypertension; E66.9 Obesity, unspecified; Z88.0 Allergy status to penicillin
CPT/HCPCS: 36415; 74176; 80053; 81001; 85025; 96360; 99284; J7040; 99283

== ENCOUNTER 2018-02-21 10:28 | Day surgery (SDC) | payer OTHER ==
[~2018-02-21 10:28] MED LIST changes: -Bupivacaine 0.5% 30 ML SDV ONE; -Clindamycin Phosphate in D5W 600 MG in Premix Bag 50 BAG IV ONE; +Lidocaine 2% 5 ML SDV ONE; +Propofol 200 MG/20 ML SDV ONE; +Sodium Chloride 0.9% 10 ML Syringe FLUSH PRN; +Sodium Chloride 0.9% 2.5 ML Syringe FLUSH PRN; +fentaNYL 100 MCG/2 ML SDV ONE
--- NOTE | 2018-02-21 10:50 | PCM.PREANE ---
Preanesthetic Assessment - Anesthesia/Transfusion/Family Hx Anesthesia History: Prior Anesthesia Without Reaction Family History of Anesthesia Reaction: No Transfusion History: No Prior Transfusion(s) Intubation History: Unknown (no history of intubation) - Review of Systems General: No Symptoms Pulmonary: No Symptoms Cardiovascular: No Symptoms Gastrointestinal: No Symptoms Neurological: No Symptoms Other: Reports: None - Physical Assessment NPO Status Date: 02/20/18 Height: 1.85 m Weight: 126.099 kg ASA Class: 1 Mental Status: Alert & Oriented x3 Airway Class: Mallampati = 1 Dentition: Reports: Normal Dentition Lungs: Clear to Auscultation, Normal Respiratory Effort Cardiovascular: Regular Rate, Regular Rhythm - Allergies Allergies/Adverse Reactions: Allergies Allergy/AdvReac Type Severity Reaction Status Date / Time Penicillins Allergy Cannot Verified 02/17/18 15:09 Remember - Blood Blood Available: No - Anesthesia Plan Pre-Op Medication Ordered: None - Acknowledgements Anesthesia Type Planned: MAC Pt an Appropriate Candidate for the Planned Anesthesia: Yes Alternatives and Risks of Anesthesia Discussed w Pt/Guardian: Yes Pt/Guardian Understands and Agrees with Anesthesia Plan: Yes PreAnesthesia Questionnaire - Past Health History Medical/Surgical History: Denies Medical/Surgical History HEENT History: Reports: Other (See Below) Other HEENT History: wears glasses Cardiovascular History: Reports: None Respiratory History: Reports: Sleep Apnea Other Respiratory History: uses CPAP Gastrointestinal History: Reports: Other (See Below) Other Gastrointestinal History: reflux in the past, none recently Genitourinary History: Reports: Renal Calculus, Other (See Below) Other Genitourinary History: "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" Musculoskeletal History: Reports: Fracture Other Musculoskeletal History: hx fx left arm Neurological History: Reports: None Psychiatric History: Reports: Anxiety, Depression Other Psychiatric History: depression and anxiety in the past, none recently Endocrine/Metabolic History: Reports: Obesity/BMI 30+ Hematologic History: Reports: None Immunologic History: Reports: None Dermatologic History: Reports: None - Infectious Disease History Infectious Disease History: Reports: Chicken Pox - Past Surgical History Head Surgeries/Procedures: Reports: None HEENT Surgical History: Reports: None Cardiovascular Surgical History: Reports: None Musculoskeletal Surgical History: Reports: Other (See Below) Other Musculoskeletal Surgeries/Procedures:: Right Foot surgery - SUBSTANCE USE Smoking Status *Q: Former Smoker Tobacco Use Within Last Twelve Months: No Recreational Drug Use History: No - HOME MEDS Home Medications: Home Meds . [No Known Home Meds] 01/03/18 [History] - CURRENT (IN HOUSE) MEDS Current Meds: Current Medications Lactated Ringer's (Ringers, Lactated) 1,000 mls @ 125 mls/hr IV ASDIRECTED REINA Lactated Ringer's (Ringers, Lactated) 1,000 mls @ 125 mls/hr IV ASDIRECTED REINA Sodium Chloride (Saline Flush) 10 ml FLUSH ASDIRECTED PRN PRN Reason: Keep Vein Open Sodium Chloride (Saline Flush) 2.5 ml FLUSH ASDIRECTED PRN PRN Reason: Keep Vein Open Sodium Chloride (Saline Flush) 10 ml FLUSH ASDIRECTED PRN PRN Reason: Keep Vein Open Sodium Chloride (Saline Flush) 2.5 ml FLUSH ASDIRECTED PRN PRN Reason: Keep Vein Open Discontinued Medications Fentanyl (Sublimaze) Confirm Administered Dose 100 mcg .ROUTE .STK-MED ONE Stop: 02/21/18 09:25 Lidocaine (Xylocaine-Mpf 2%) Confirm Administered Dose 5 ml .ROUTE .STK-MED ONE Stop: 02/21/18 09:25 Propofol (Diprivan 20 Ml) Confirm Administered Dose 400 mg .ROUTE .STK-MED ONE Stop: 02/21/18 09:25
--- NOTE | 2018-02-21 11:33 | PCM.OPNOTE ---
- General Post-Op/Procedure Note Date of Surgery/Procedure: 02/21/18 Operative Procedure(s): Diagnostic colonoscopy Findings: Diverticulosis, hepatic flexure polyp Pre Op Diagnosis: Change in bowel habits Post-Op Diagnosis: Diverticulosis, hepatic flexure polyp Anesthesia Technique: DEENA Primary Surgeon: Poppy Bowers Condition: Good
--- NOTE | 2018-02-21 11:42 | PCM.POSTAN ---
POST ANESTHESIA ASSESSMENT - MENTAL STATUS Mental Status: Alert, Oriented - RESPIRATORY Respiratory Status: Respiratory Rate WNL, Airway Patent, O2 Saturation Stable - CARDIOVASCULAR CV Status: Pulse Rate WNL, Blood Pressure Stable - GASTROINTESTINAL GI Status: No Symptoms - PAIN Pain Score: 0 - POST OP HYDRATION Hydration Status: Adequate & Stable
--- NOTE | 2018-02-21 11:47 | PCM48HPAN ---
Post Anesthesia Note - EVALUATION WITHIN 48HRS OF ANESTHETIC Vital Signs in Normal Range: Yes Patient Participated in Evaluation: Yes Respiratory Function Stable: Yes Airway Patent: Yes Cardiovascular Function Stable: Yes Hydration Status Stable: Yes Pain Control Satisfactory: Yes Nausea and Vomiting Control Satisfactory: Yes Mental Status Recovered: Yes Resp Rate: 16
[2018-02-21 13:23] VITALS: BP 127/84
--- NOTE | 2018-02-22 11:39 | OR ---
SURGEON: GRACIA CABRAL MD DATE OF PROCEDURE: 02/21/2018 PREOPERATIVE DIAGNOSIS: Change in bowel habits. POSTOPERATIVE DIAGNOSES: 1. Diverticulosis. 2. Hepatic flexure polyp. PROCEDURE PERFORMED: Diagnostic colonoscopy. ANESTHESIA: MAC. INSTRUMENT USED: Olympus colonoscope. EXTENT OF EXAM: To the cecum. PREPARATION: Good. LIMITATIONS: None. INDICATION FOR EXAMINATION: The patient is a 52-year-old male, who presents with lower abdominal pain as well as a change in his bowel habits. The decision was made to proceed with diagnostic colonoscopy. I explained the procedure, expected perioperative course, and risks including bleeding, infection, or damage to surrounding structures including perforation. The patient verbalized understanding and wishes to proceed. PROCEDURE IN DETAIL: The patient was brought to the endoscopy suite and placed in the left lateral decubitus position. A time-out was completed verifying the patient's name, age, date of , allergies, and procedure to be performed. Monitored anesthesia care was induced and continuous oxygen was provided via nasal cannula throughout the procedure. After adequate sedation was achieved, a digital rectal exam was performed. This exam was within normal limits. A well-lubricated colonoscope was inserted in the rectum and advanced under direct visualization to the level of the cecum. The cecum was identified by both visual and anatomic landmarks. A photograph was taken of the cecal cap, however, I was unable to retroflex the scope within the cecum due to looping of the scope more proximally. The scope was then fully withdrawn while examining the color, texture, anatomy, and integrity of the mucosa from the cecum to the anal canal. The patient was found to have one 2 to 3 mm polyp at the hepatic flexure. This was removed in piecemeal fashion using a cold biopsy forceps. The patient was found to have diverticulosis scattered throughout his colon. The scope was then brought into the rectum and retroflexed to allow visualization of the anal canal opening. This appeared normal and a photograph was taken. The scope was then straightened out and fully withdrawn. The cecum to anus time was 7 minutes. The patient tolerated the procedure well and was taken to PACU in stable condition. ENDOSCOPIC DIAGNOSES: 1. Diverticulosis. 2. Hepatic flexure polyp. RECOMMENDATIONS: Follow up in clinic in 2 weeks. SUPA HEAD /[id number]
== END 2018-02-21 12:15 | disposition home or self-care (01) ==
LOC: MW.SDS 10:28
PROVIDERS: ATTEND Surgery
DX: R19.4 Change in bowel habit (principal); K63.5 Polyp of colon; K57.30 Diverticulosis of large intestine without perforation or abscess without bleeding; K21.9 Gastro-esophageal reflux disease without esophagitis; G47.30 Sleep apnea, unspecified; Z99.89 Dependence on other enabling machines and devices; F41.9 Anxiety disorder, unspecified; F32.9 Major depressive disorder, single episode, unspecified; E66.9 Obesity, unspecified; Z68.36 Body mass index [BMI] 36.0-36.9, adult; Z88.0 Allergy status to penicillin; Z87.891 Personal history of nicotine dependence
CPT/HCPCS: 45380; 88305; J2704; J3010; 00811

== ENCOUNTER 2018-03-06 21:25 | Emergency (ER) | payer OTHER ==
--- NOTE | 2018-03-06 21:44 | EDM.PDOC ---
ED HPI GENERAL MEDICAL PROBLEM - General Chief Complaint: Chest Pain Stated Complaint: PT HAS CHEST PAINS Time Seen by Provider: 03/06/18 21:26 Source of Information: Reports: Patient History Limitations: Reports: No Limitations - History of Present Illness INITIAL COMMENTS - FREE TEXT/NARRATIVE: HISTORY AND PHYSICAL: History of present illness: 52-year-old male presenting to the emergency department with chief complaint of headache, left shoulder pain. and abdominal pain starting today. Patient states that approximately 2-3 days ago he had some nausea with vomiting which has persisted until today it became much worse. In addition around noon he began having a headache which he rates 9/10 which started on the left side and has now radiated to the back of his skull. Does not have a history of migraine. He has never had a headache this severe. He denies any vision changes or focal neurologic deficits. He also states that he is having some left shoulder blade pain that radiates into his left chest. It is constant and sharp. It does hurt when he pushes on the area in his chest. In addition, states he has right upper quadrant as well as some generalized abdominal pain. He denies any associated diarrhea, bloody stool, or dark tarry stools. States he did see Dr. Bowers, general surgeon, who has been working him up. He did have a colonoscopy in January which showed diverticulosis. He did get tested on Wednesday for H. pylori by Dr. Bowers and is scheduled for a ultrasound and HIDA scan for possible gallbladder issues. Patient states that he did take 4 baby aspirin 81 mg which did not help with his headache or any of his pain. Patient did have a stress test last April which he states showed no significant findings. States that he takes no normal medications. He reports that he has had similar episodes to this other than the headache approximately 2-3 times in the past year or two. He also reports a history of nephrolithiasis as well as microscopic hematuria which has been investigated recently by Dr. Banerjee, urologist. He denies any associated palpitations, shortness of breath, syncopal episodes, fever, chills, sore throat, cough, dysuria, or leg pain. On exam patient is visibly in pain holding left side of his head which he states helps putting pressure. Patient has left scapular pain on palpitation. In addition he has left upper chest pain with palpitations. There is mild right upper quadrant as well as epigastric tenderness on exam. Abdomen is soft, nonrigid, nondistended, there are positive bowel sounds in all 4 quadrants. No other significant findings. We did look up H pylori results that were ordered on Wednesday by Dr. Bowers. They were negative. 2229: CBC, CMP, lipase, troponin, d-dimer, INR unremarkable Urinalysis negative for infection however there is large blood. CT abdomen and pelvis pending 2234: RUQ US unremarkable. Did talk with patient about staying scheduled to get his HIDA scan that Dr. Bowers ordered. 2241: CT Head unremarkable. 2319: CT abd/pelvis unremarkable other than 6 myoid diverticulosis without diverticulitis no nephrolithiasis noted Review of systems: As per history of present illness and below otherwise all systems reviewed and negative. Past medical history: As per history of present illness and as reviewed below otherwise noncontributory. Surgical history: As per history of present illness and as reviewed below otherwise noncontributory. Social history: No reported history of drug or alcohol abuse. Family history: As per history of present illness and as reviewed below otherwise noncontributory. Physical exam: HEENT: Atraumatic, normocephalic, pupils reactive, negative for conjunctival pallor or scleral icterus, mucous membranes moist, throat clear, neck supple, nontender, trachea midline. Lungs: Clear to auscultation, breath sounds equal bilaterally, chest nontender. Heart: S1S2, regular, negative for clicks, rubs, or JVD. Abdomen: Soft, nondistended, RUQ and Epigastric tenderness. Negative for masses or hepatosplenomegaly. Negative for costovertebral tenderness. Pelvis: Stable nontender. Genitourinary: Deferred. Rectal: Deferred. Extremities: Atraumatic, negative for cords or calf pain. Neurovascular unremarkable. Neuro: Awake, alert, oriented. Cranial nerves II through XII unremarkable. Cerebellum unremarkable. Motor and sensory unremarkable throughout. Exam nonfocal. Diagnostics: CBC, CMP, lipase, d-dimer, INR, troponin, UA/UC, CT head, CT abdomen and pelvis , chest x-ray, ultrasound abdomen RUQ Therapeutics: 1 L normal saline 1, 20 mg famotidine IV 1, 1 mg Dilaudid IV 1 Impression: Headache Atypical chest pain Right upper quadrant abdominal pain Plan: See above H&P. Workup was completely unremarkable other than large blood in his urine which he states has been worked up by Dr. Martinez, urologist previously. I was able to relieve his headache which I suspect was secondary to stress as well as dehydration with one of Dilaudid as well as 1 L normal saline. Right upper quadrant ultrasound was negative for stones or sludge. I did discuss that he should continue to follow-up with Dr. Bowers and go to his scheduled HIDA scan as his gallbladder still may have functional problems which may be triggering his right upper quadrant abdominal pain. I did tell him that his H pylori test was negative that Dr. Bowers had ordered previously. Patient was discharged in good condition with instructions to follow-up with his primary care provider as well as Dr. Bowers, general surgeon. He was instructed to return to emergency department if he had any new or worsening symptoms. Definitive disposition and diagnosis as appropriate pending reevaluation and review of above. chest tightness Pain Score (Numeric/FACES): 5 headache Pain Score (Numeric/FACES): 9 - Related Data Allergies Allergy/AdvReac Type Severity Reaction Status Date / Time Penicillins Allergy Cannot Verified 03/06/18 21:32 Remember Home Meds: Home Meds . 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" Musculoskeletal History: Reports: Fracture Other Musculoskeletal History: hx fx left arm Neurological History: Reports: None Psychiatric History: Reports: Anxiety, Depression Other Psychiatric History: depression and anxiety in the past, none recently Endocrine/Metabolic History: Reports: Obesity/BMI 30+ Hematologic History: Reports: None Immunologic History: Reports: None Dermatologic History: Reports: None - Infectious Disease History Infectious Disease History: Reports: Chicken Pox - Past Surgical History Head Surgeries/Procedures: Reports: None HEENT Surgical History: Reports: None Cardiovascular Surgical History: Reports: None Musculoskeletal Surgical History: Reports: Other (See Below) Other Musculoskeletal Surgeries/Procedures:: Right Foot surgery Social & Family History - Family History Family Medical History: Noncontributory HEENT: Reports: None Cardiac: Reports: MA Endocrine/Metabolic: Reports: Diabetes, type II - Caffeine Use Caffeine Use: Reports: Coffee ED ROS GENERAL - Review of Systems Review Of Systems: ROS reveals no pertinent complaints other than HPI. ED EXAM, GENERAL - Physical Exam Exam: See Below Course - Vital Signs Last Recorded V/S: Last Vital Signs Temp 98.1 F 03/06/18 22:47 Pulse 75 03/06/18 22:47 Resp 18 03/06/18 22:47 BP 129/77 03/06/18 22:47 Pulse Ox 97 03/06/18 22:47 - Orders/Labs/Meds Orders: Active Orders 24 hr Category Date Time Status Cardiac Monitoring [RC] . DIRECTED Care 03/06/18 21:46 Active EKG 12 Lead [EKG Documentation Completion] [RC] STAT Care 03/06/18 21:42 Active Oxygen Therapy [RC] ASDIRECTED Care 03/06/18 21:46 Active Pulse Oximetry [RC] ASDIRECTED Care 03/06/18 21:46 Active Abdomen Ltd [US] Stat Exams 03/06/18 21:46 Taken Abdomen Pelvis w Cont [CT] Stat Exams 03/06/18 21:46 Taken Chest 2V [CR] Stat Exams 03/06/18 21:46 Taken Head wo Cont [CT] Stat Exams 03/06/18 21:46 Ordered CULTURE URINE [RM] Stat Lab 03/06/18 22:00 Received Sodium Chloride 0.9% [Saline Flush] Med 03/06/18 21:46 Active 10 ml FLUSH ASDIRECTED PRN Sodium Chloride 0.9% [Saline Flush] Med 03/06/18 21:46 Active 2.5 ml FLUSH ASDIRECTED PRN Sodium Chloride 0.9% [Saline Flush] Med 03/06/18 21:46 Active 2.5 ml FLUSH ASDIRECTED PRN Saline Lock Insert [OM.PC] Stat Oth 03/06/18 21:46 Ordered Medication Orders Sodium Chloride (Saline Flush) 2.5 ml FLUSH ASDIRECTED PRN PRN Reason: Keep Vein Open Sodium Chloride (Saline Flush) 10 ml FLUSH ASDIRECTED PRN PRN Reason: Keep Vein Open Sodium Chloride (Saline Flush) 2.5 ml FLUSH ASDIRECTED PRN PRN Reason: Keep Vein Open Labs: Laboratory Tests 03/06/18 03/06/18 03/06/18 Range/Units 21:50 21:50 21:50 WBC 6.76 (4.0-11.0) K/uL RBC 4.89 (4.50-5.90) M/uL Hgb 13.7 (13.0-17.0) g/dL Hct 40.6 (38.0-50.0) % MCV 83.0 (80.0-98.0) fL MCH 28.0 (27.0-32.0) pg MCHC 33.7 (31.0-37.0) g/dL RDW Std Deviation 39.7 (28.0-62.0) fl RDW Coeff of Kenneth 13 (11.0-15.0) % Plt Count 157 (150-400) K/uL MPV 9.40 (7.40-12.00) fL Neut % (Auto) 58.3 (48.0-80.0) % Lymph % (Auto) 28.4 (16.0-40.0) % [place] % (Auto) 8.1 (0.0-15.0) % Eos % (Auto) 4.6 (0.0-7.0) % Baso % (Auto) 0.6 (0.0-1.5) % Neut # (Auto) 3.9 (1.4-5.7) K/uL Lymph # (Auto) 1.9 (0.6-2.4) K/uL Overton # (Auto) 0.6 (0.0-0.8) K/uL Eos # (Auto) 0.3 (0.0-0.7) K/uL Baso # (Auto) 0.0 (0.0-0.1) K/uL Nucleated RBC % 0.0 /100WBC Nucleated RBCs # 0 K/uL INR 0.98 D-Dimer, Quantitative 0.24 (0.0-0.52) mg/LFEU Sodium 141 (136-148) mmol/L Potassium 4.3 (3.5-5.1) mmol/L Chloride 104 (98-107) mmol/L Carbon Dioxide 29.2 (21.0-32.0) mmol/L BUN 11 (7.0-18.0) mg/dL Creatinine 1.3 (0.8-1.3) mg/dL Est Cr Clr Drug Dosing 75.97 mL/min Estimated GFR (MDRD) 58.2 ml/min Glucose 118 H (74-106) mg/dL Calcium 8.8 (8.5-10.1) mg/dL Total Bilirubin 0.2 (0.2-1.0) mg/dL AST 18 (15-37) IU/L ALT 41 (14-63) IU/L Alkaline Phosphatase 131 H (46-116) U/L Troponin I < 0.050 (0.000-0.056) ng/mL Total Protein 6.8 (6.4-8.2) g/dL Albumin 3.6 (3.4-5.0) g/dL Globulin 3.2 (2.0-3.5) g/dL Albumin/Globulin Ratio 1.1 L (1.3-2.8) Lipase 126 (73-393) U/L Urine Color Urine Appearance Urine pH (5.0-8.0) Ur Specific [place] (1.001-1.035) Urine Protein (NEGATIVE) mg/dL Urine Glucose (UA) (NEGATIVE) mg/dL Urine Ketones (NEGATIVE) mg/dL Urine Occult Blood (NEGATIVE) Urine Nitrite (NEGATIVE) Urine Bilirubin (NEGATIVE) Urine Urobilinogen (<2.0) EU/dL Ur Leukocyte Esterase (NEGATIVE) Urine RBC (0-2/HPF) Urine WBC (0-5/HPF) Ur Epithelial Cells (NONE-FEW) Urine Bacteria (NEGATIVE) 03/06/18 Range/Units 22:00 WBC (4.0-11.0) K/uL RBC (4.50-5.90) M/uL Hgb (13.0-17.0) g/dL Hct (38.0-50.0) % MCV (80.0-98.0) fL MCH (27.0-32.0) pg MCHC (31.0-37.0) g/dL RDW Std Deviation (28.0-62.0) fl RDW Coeff of Kenneth (11.0-15.0) % Plt Count (150-400) K/uL MPV (7.40-12.00) fL Neut % (Auto) (48.0-80.0) % Lymph % (Auto) (16.0-40.0) % Overton % (Auto) (0.0-15.0) % Eos % (Auto) (0.0-7.0) % Baso % (Auto) (0.0-1.5) % Neut # (Auto) (1.4-5.7) K/uL Lymph # (Auto) (0.6-2.4) K/uL Overton # (Auto) (0.0-0.8) K/uL Eos # (Auto) (0.0-0.7) K/uL Baso # (Auto) (0.0-0.1) K/uL Nucleated RBC % /100WBC Nucleated RBCs # K/uL INR D-Dimer, Quantitative (0.0-0.52) mg/LFEU Sodium (136-148) mmol/L Potassium (3.5-5.1) mmol/L Chloride (98-107) mmol/L Carbon Dioxide (21.0-32.0) mmol/L BUN (7.0-18.0) mg/dL Creatinine (0.8-1.3) mg/dL Est Cr Clr Drug Dosing mL/min Estimated GFR (MDRD) ml/min Glucose (74-106) mg/dL Calcium (8.5-10.1) mg/dL Total Bilirubin (0.2-1.0) mg/dL AST (15-37) IU/L ALT (14-63) IU/L Alkaline Phosphatase (46-116) U/L Troponin I (0.000-0.056) ng/mL Total Protein (6.4-8.2) g/dL Albumin (3.4-5.0) g/dL Globulin (2.0-3.5) g/dL Albumin/Globulin Ratio (1.3-2.8) Lipase (73-393) U/L Urine Color YELLOW Urine Appearance CLEAR Urine pH 6.0 (5.0-8.0) Ur Specific [place] >= 1.030 (1.001-1.035) Urine Protein 100 (NEGATIVE) mg/dL Urine Glucose (UA) NEGATIVE (NEGATIVE) mg/dL Urine Ketones NEGATIVE (NEGATIVE) mg/dL Urine Occult Blood LARGE H (NEGATIVE) Urine Nitrite NEGATIVE (NEGATIVE) Urine Bilirubin NEGATIVE (NEGATIVE) Urine Urobilinogen 0.2 (<2.0) EU/dL Ur Leukocyte Esterase NEGATIVE (NEGATIVE) Urine RBC 5-10 (0-2/HPF) Urine WBC 0-2 (0-5/HPF) Ur Epithelial Cells RARE (NONE-FEW) Urine Bacteria FEW (NEGATIVE) Meds: Medications Generic Name Dose Route Start Last Admin Trade Name Freq PRN Reason Stop Dose Admin Sodium Chloride 2.5 ml 03/06/18 21:46 Saline Flush FLUSH ASDIRECTED PRN Keep Vein Open Sodium Chloride 10 ml 03/06/18 21:46 Saline Flush FLUSH ASDIRECTED PRN Keep Vein Open Sodium Chloride 2.5 ml 03/06/18 21:46 Saline Flush FLUSH ASDIRECTED PRN Keep Vein Open Discontinued Medications Generic Name Dose Route Start Last Admin Trade Name Freq PRN Reason Stop Dose Admin Al Hydroxide/Mg Hydroxide 15 0 ml 03/06/18 23:21 ml/ Lidocaine HCl 5 ml PO 03/06/18 23:22 ONETIME ONE Famotidine 20 mg 03/06/18 21:46 03/06/18 22:22 Pepcid IVPUSH 03/06/18 21:47 20 mg ONETIME ONE Administration Hydromorphone HCl 1 mg 03/06/18 21:46 03/06/18 22:23 Dilaudid IVPUSH 03/06/18 21:47 1 mg ONETIME ONE Administration Sodium Chloride 1,000 mls @ 999 mls/hr 03/06/18 21:46 03/06/18 22:22 Normal Saline IV 03/06/18 22:46 999 mls/hr BOLUS ONE Administration Iopamidol 100 ml 03/06/18 22:48 03/06/18 22:48 Isovue Multipack-370 (76%) IVPUSH 03/06/18 22:49 100 ml ONETIME STA Administration Ondansetron HCl 8 mg 03/06/18 21:46 03/06/18 22:22 Zofran IVPUSH 03/06/18 21:47 8 mg ONETIME ONE Administration Departure - Departure Time of Disposition: 23:28 Disposition: Home, Self-Care 01 Condition: Good Clinical Impression: Right upper quadrant abdominal pain, Atypical chest pain Headache Qualifiers: Headache type: tension-type Headache chronicity pattern: acute headache Intractability: not intractable Qualified Code(s): G44.209 - Tension-type headache, unspecified, not intractable - Discharge Information Referrals: PCP,None [Primary Care Provider] - Forms: ED Department Discharge Additional Instructions: My general discharge The following information is given to patients seen in the emergency department who are being discharged to home. This information is to outline your options for follow-up care. We provide all patients seen in our emergency department with a follow-up referral. The need for follow-up, as well as the timing and circumstances, are variable depending upon the specifics of your emergency department visit. If you don't have a primary care physician on staff, we will provide you with a referral. We always advise you to contact your personal physician following an emergency department visit to inform them of the circumstance of the visit and for follow-up with them and/or the need for any referrals to a consulting specialist. The emergency department will also refer you to a specialist when appropriate. This referral assures that you have the opportunity for follow-up care with a specialist. All of these measure are taken in an effort to provide you with optimal care, which includes your follow-up. Under all circumstances we always encourage you to contact your private physician who remains a resource for coordinating your care. When calling for follow-up care, please make the office aware that this follow-up is from your recent emergency room visit. If for any reason you are refused follow-up, please contact the [facility] Emergency Department at and asked to speak to the emergency department charge nurse. [address] [address] My General Surgery [facility] Specialty Care - General Surgery Professional Building [address] [place] [address], [address] [place] [address] Please follow-up with primary care provider and general surgeon as we discussed. Return to emergency department if any new or worsening symptoms. - My Orders Last 24 Hours: My Active Orders 03/06/18 21:42 EKG 12 Lead [EKG Documentation Completion] [RC] STAT 03/06/18 21:46 Cardiac Monitoring [RC] . DIRECTED Oxygen Therapy [RC] ASDIRECTED Pulse Oximetry [RC] ASDIRECTED Abdomen Ltd [US] Stat Abdomen Pelvis w Cont [CT] Stat Chest 2V [CR] Stat Head wo Cont [CT] Stat Sodium Chloride 0.9% [Saline Flush] 10 ml FLUSH ASDIRECTED PRN Sodium Chloride 0.9% [Saline Flush] 2.5 ml FLUSH ASDIRECTED PRN Sodium Chloride 0.9% [Saline Flush] 2.5 ml FLUSH ASDIRECTED PRN Saline Lock Insert [OM.PC] Stat 03/06/18 22:00 CULTURE URINE [RM] Stat - Assessment/Plan Last 24 Hours: My Active Orders 03/06/18 21:42 EKG 12 Lead [EKG Documentation Completion] [RC] STAT 03/06/18 21:46 Cardiac Monitoring [RC] . DIRECTED Oxygen Therapy [RC] ASDIRECTED Pulse Oximetry [RC] ASDIRECTED Abdomen Ltd [US] Stat Abdomen Pelvis w Cont [CT] Stat Chest 2V [CR] Stat Head wo Cont [CT] Stat Sodium Chloride 0.9% [Saline Flush] 10 ml FLUSH ASDIRECTED PRN Sodium Chloride 0.9% [Saline Flush] 2.5 ml FLUSH ASDIRECTED PRN Sodium Chloride 0.9% [Saline Flush] 2.5 ml FLUSH ASDIRECTED PRN Saline Lock Insert [OM.PC] Stat 03/06/18 22:00 CULTURE URINE [RM] Stat
[2018-03-06] MEDS ORDERED: Sodium Chloride 0.9% 1,000 ML IV ONE (21:46)
[2018-03-06] MEDS ORDERED: Sodium Chloride 0.9% 2.5 ML Syringe FLUSH PRN ×2 (21:46)
[2018-03-06] MEDS ORDERED: Famotidine 20 MG/2 ML SDV IVPUSH ONE (21:46)
[2018-03-06] MEDS ORDERED: HYDROmorphone 2 MG/ML SDV IVPUSH ONE (21:46)
[2018-03-06] MEDS ORDERED: Ondansetron 4 MG/2 ML SDV IVPUSH ONE (21:46)
[2018-03-06] MEDS ORDERED: Sodium Chloride 0.9% 10 ML Syringe FLUSH PRN (21:46)
[2018-03-06 22:21] LABS: CHLORIDE,CL 104 mmol/L (98-107); SODIUM,NA 141 mmol/L (136-148)
[2018-03-06] MEDS ORDERED: Iopamidol 755 MG/ML 200 ML Multipack Bottle IVPUSH STA (22:48)
[2018-03-06] MEDS ORDERED: Alum Hydrox/Mag Hydrox/Simeth 15 ML, Lidocaine 2% 5 ML PO ONE ×2 (23:21)
[2018-03-06 23:28] VITALS: BP 141/94
--- NOTE | 2018-03-08 09:39 | US ---
EXAM DATE: 03/06/18 PATIENT'S AGE: 52 Patient: HAL FUENTES Facility: [place], [place] Site . Site : 1965 Study: US Abdomen [id number]/23/2018 10:20:10 PM Ordering Physician: Trevor Hampton Final Report: INDICATION: RUQ PAIN INDICATION: Right upper quadrant pain TECHNIQUE: Ultrasound abdomen limited. Sonographic images of the right upper quadrant were obtained using ndiaye-scale and color Doppler images. COMPARISON: None FINDINGS: Liver: Diffuse fatty infiltration of the liver. No masses. No intrahepatic biliary dilatation. Gallbladder: No stones or sludge. Normal wall thickness. No pericholecystic fluid. Common bile duct: 2 mm. Pancreas: Not well visualized. Right kidney: 13.1 cm. Normal echotexture and cortex. No masses, stones, or hydronephrosis. Vasculature: Proximal abdominal aorta and IVC are normal. IMPRESSION: Sonographically normal gallbladder and common bile duct. Diffuse fatty infiltration of the liver. Dictated by Noe Leo MD @ 03/06/2018 10:33:15 PM Dictated by: Noe Leo MD @ 03/06/2018 22:33:24 (Electronic Signature) Report Signed by Proxy. IVONE
--- NOTE | 2018-03-08 09:40 | CR ---
EXAM DATE: 03/06/18 PATIENT'S AGE: 52 Patient: HAL FUENTES Facility: [place], [place] Site . Site : 1965 Study: XRay Chest [id number]/23/2018 10:20:31 PM Ordering Physician: Trevor Hampton Final Report: Indication: Right upper quadrant pain. Technique: PA and lateral views the chest were obtained. Comparison: April 29, 2017. Findings: The heart is normal in size. The lungs are clear. No infiltrate, pleural effusion, or pneumothorax identified. Impression: No acute cardiopulmonary process. Dictated by Emma Cross MD @ Mar 06 2018 10:23PM (Electronic Signature) Report Signed by Proxy. IVONE
--- NOTE | 2018-03-08 09:41 | CT ---
EXAM DATE: 03/06/18 PATIENT'S AGE: 52 Patient: HAL FUENTES Facility: [place], [place] Site . Site : 1965 Study: CT Head [id number]/23/2018 10:28:59 PM Ordering Physician: Trevor Hampton Final Report: INDICATION: Head pain TECHNIQUE: CT head without contrast. COMPARISON: 10/03/2015 FINDINGS: CSF spaces: Within normal limits for age. Brain parenchyma: The ndiaye-white differentiation is normal. No sign of mass, hemorrhage, or midline shift. Skull base and calvarium: Maxillary sinus mucosal thickening. The visualized orbits are grossly unremarkable. No skull fractures. IMPRESSION: Unremarkable noncontrast head CT. Dictated by Noe Leo MD @ 03/06/2018 10:40:14 PM Dictated by: Noe Leo MD @ 03/06/2018 22:40:21 (Electronic Signature) Report Signed by Proxy. IVONE
--- NOTE | 2018-03-08 09:42 | CT ---
EXAM DATE: 03/06/18 PATIENT'S AGE: 52 Patient: HAL FUENTES Facility: [place], [place] Site . Site : 1965 Study: CT Abdomen/Pelvis [id number]/23/2018 10:50:28 PM Ordering Physician: Trevor Hampton Final Report: INDICATION: Abdominal pain, history of diverticulitis TECHNIQUE: CT abdomen and pelvis acquired with IV contrast. 100 cc Isovue 370 COMPARISON: 01/03/2018 FINDINGS: Lower chest: Unremarkable. Liver: Hepatic steatosis. Spleen: Unremarkable. Pancreas: Unremarkable. Gallbladder and bile ducts: Unremarkable. Kidneys: Unremarkable. Adrenal glands: Unremarkable. GI tract: Unremarkable. Appendix is normal. Vascular structures: Unremarkable. Lymph nodes: Unremarkable. Miscellaneous: Small fat containing umbilical hernia. No free air or significant free fluid. Pelvic Organs: Unremarkable. Bones: Unremarkable for age. IMPRESSION: Diffuse colonic fecal retention. Sigmoid diverticulosis without evidence for diverticulitis. Hepatic steatosis. Dictated by Noe Leo MD @ 03/06/2018 11:17:29 PM Dictated by: Noe Leo MD @ 03/06/2018 23:17:35 (Electronic Signature) Report Signed by Proxy. [facility]PITALVioletta
== END 2018-03-06 23:47 | disposition home or self-care (01) ==
LOC: MW.ED 21:25
DX: G44.209 Tension-type headache, unspecified, not intractable (principal); R07.89 Other chest pain; R10.11 Right upper quadrant pain; Z88.0 Allergy status to penicillin; E66.9 Obesity, unspecified
CPT/HCPCS: 70450; 71046; 74177; 76705; 80053; 81001; 83690; 84484; 85025; 85379; 85610; 87086; 96361; 99285; A9270; J1170; J2405; J3490; J7040; Q9967; 96374; 96375

== ENCOUNTER 2018-08-05 05:32 | Emergency (ER) | payer OTHER ==
[2018-08-05] MEDS ORDERED: Ondansetron 4 MG/2 ML SDV IVPUSH ONE (06:16)
[2018-08-05 06:32] LABS: CHLORIDE,CL 106 mmol/L (98-107); SODIUM,NA 139 mmol/L (136-148)
--- NOTE | 2018-08-05 06:45 | CR ---
INDICATION: Chest pain and shortness of breath TECHNIQUE: Chest 1 views COMPARISON: May 16, 2018 FINDINGS: Cardiovascular and mediastinum: Heart size and vasculature are normal in caliber and appearance. Lungs and pleural spaces: Lungs are clear. No sign of infiltrate or mass. No sign of pleural effusion. No pneumothorax. Bones and soft tissues: No significant findings. IMPRESSION: No acute findings and no significant changes from the prior exam. Dictated by Jl Campbell MD @ Aug 05 2018 6:42AM Signed by Dr. Jl Campbell @ Aug 05 2018 6:43AM
--- NOTE | 2018-08-05 07:01 | EDM.PDOC ---
ED HPI GENERAL MEDICAL PROBLEM - General Chief Complaint: Chest Pain Stated Complaint: SOB Time Seen by Provider: 08/05/18 07:01 - History of Present Illness INITIAL COMMENTS - FREE TEXT/NARRATIVE: HISTORY AND PHYSICAL: History of present illness: Patient is a 52-year-old white male presents with concern of chest pain this is somewhat sharp off and on he noticed that this morning he does not have at this time he states he had this problem off and on for several years she's had a workup including stress test has been negative and is currently followed by Dr. Wright for this who recently had him on a 24-hour event monitor. Review of systems: As per history of present illness and below otherwise all systems reviewed and negative. Past medical history: As per history of present illness and as reviewed below otherwise noncontributory. Surgical history: As per history of present illness and as reviewed below otherwise noncontributory. Social history: No reported history of drug or alcohol abuse. Family history: As per history of present illness and as reviewed below otherwise noncontributory. Physical exam: HEENT: Atraumatic, normocephalic, pupils reactive, negative for conjunctival pallor or scleral icterus, mucous membranes moist, throat clear, neck supple, nontender, trachea midline. Lungs: Clear to auscultation, breath sounds equal bilaterally, chest nontender. Heart: S1S2, regular, negative for clicks, rubs, or JVD. Abdomen: Soft, nondistended, nontender. Negative for masses or hepatosplenomegaly. Negative for costovertebral tenderness. Pelvis: Stable nontender. Genitourinary: Deferred. Rectal: Deferred. Extremities: Atraumatic, negative for cords or calf pain. Neurovascular unremarkable. Neuro: Awake, alert, oriented. Cranial nerves II through XII unremarkable. Cerebellum unremarkable. Motor and sensory unremarkable throughout. Exam nonfocal. Diagnostics: CBC CMP troponin PT/INR chest x-ray EKG Therapeutics: IV O2 monitor Impression: #1 chest pain Definitive disposition and diagnosis as appropriate pending reevaluation and review of above. - Related Data Allergies Allergy/AdvReac Type Severity Reaction Status Date / Time Penicillins Allergy Unknown Cannot Verified 08/05/18 05:58 Remember Home Meds: Home Meds Enalapril [Vasotec] 20 mg PO DAILY 08/05/18 [History] Past Medical History - Past Health History Medical/Surgical History: Denies Medical/Surgical History HEENT History: Reports: Other (See Below) Other HEENT History: wears glasses Cardiovascular History: Reports: None Respiratory History: Reports: Sleep Apnea Other Respiratory History: uses CPAP Gastrointestinal History: Reports: Colon Polyp, GERD, Other (See Below) Other Gastrointestinal History: cholecystitis, reflux in the past, none recently Genitourinary History: Reports: Renal Calculus, Other (See Below) Other Genitourinary History: "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 They checked up on it" Musculoskeletal History: Reports: Fracture Other Musculoskeletal History: hx fx left arm Neurological History: Reports: None Psychiatric History: Reports: Anxiety, Depression Other Psychiatric History: depression and anxiety in the past, none recently Endocrine/Metabolic History: Reports: Obesity/BMI 30+ Hematologic History: Reports: None Immunologic History: Reports: None Oncologic (Cancer) History: Reports: None Dermatologic History: Reports: None - Infectious Disease History Infectious Disease History: Reports: Chicken Pox - Past Surgical History Head Surgeries/Procedures: Reports: None HEENT Surgical History: Reports: None Cardiovascular Surgical History: Reports: None Respiratory Surgical History: Reports: None GI Surgical History: Reports: Cholecystectomy, Colonoscopy, EGD Male Surgical History: Reports: None Endocrine Surgical History: Reports: None Musculoskeletal Surgical History: Reports: Other (See Below) Other Musculoskeletal Surgeries/Procedures:: Right Foot surgery Social & Family History - Family History Family Medical History: Noncontributory HEENT: Reports: None Cardiac: Reports: [place] Endocrine/Metabolic: Reports: Diabetes, type II - Tobacco Use Smoking Status *Q: Former Smoker Used Tobacco, but Quit: Yes Month/Year Tobacco Last Used: 2016 - Caffeine Use Caffeine Use: Reports: Coffee - Recreational Drug Use Recreational Drug Use: No - Living Situation & Occupation Living situation: Reports: with Significant Other Occupation: Employed ED ROS GENERAL - Review of Systems Review Of Systems: ROS reveals no pertinent complaints other than HPI. ED EXAM, GENERAL - Physical Exam Exam: See Below (See dictation) Course - Vital Signs Text/Narrative:: MRSA [place] course has been unremarkable I discussed with patient admission for observation I also discussed patient considerations for transfer he declined both and requests discharge home with follow-up with his private medical doctor he understands risks and benefits. Last Recorded V/S: Last Vital Signs Temp 36.2 C 02/22/19 05:56 Pulse 77 08/05/18 06:29 Resp 22 H 08/05/18 05:56 BP 141/87 H 08/05/18 06:29 Pulse Ox 93 L 08/05/18 06:29 - Orders/Labs/Meds Orders: Active Orders 24 hr Category Date Time Status Cardiac Monitoring [RC] . DIRECTED Care 08/05/18 05:49 Active EKG Documentation Completion [RC] STAT Care 08/05/18 05:49 Active Labs: Laboratory Tests 08/05/18 08/05/18 08/05/18 Range/Units 05:58 05:58 05:58 WBC 5.06 (4.0-11.0) K/uL RBC 4.62 (4.50-5.90) M/uL Hgb 13.5 (13.0-17.0) g/dL Hct 39.1 (38.0-50.0) % MCV 84.6 (80.0-98.0) fL MCH 29.2 (27.0-32.0) pg MCHC 34.5 (31.0-37.0) g/dL RDW Std Deviation 40.1 (28.0-62.0) fl RDW Coeff of Kenneth 13 (11.0-15.0) % Plt Count 162 (150-400) K/uL MPV 9.30 (7.40-12.00) fL Neut % (Auto) 59.0 (48.0-80.0) % Lymph % (Auto) 28.5 (16.0-40.0) % [place] % (Auto) 9.5 (0.0-15.0) % Eos % (Auto) 2.4 (0.0-7.0) % Baso % (Auto) 0.6 (0.0-1.5) % Neut # (Auto) 3.0 (1.4-5.7) K/uL Lymph # (Auto) 1.4 (0.6-2.4) K/uL [place] # (Auto) 0.5 (0.0-0.8) K/uL Eos # (Auto) 0.1 (0.0-0.7) K/uL Baso # (Auto) 0.0 (0.0-0.1) K/uL Nucleated RBC % 0.0 /100WBC Nucleated RBCs # 0 K/uL APTT 24.8 (18.6-31.3) SEC Sodium 139 (136-148) mmol/L Potassium 4.1 (3.5-5.1) mmol/L Chloride 106 (98-107) mmol/L Carbon Dioxide 23.0 (21.0-32.0) mmol/L BUN 16 (7.0-18.0) mg/dL Creatinine 0.9 (0.8-1.3) mg/dL Est Cr Clr Drug Dosing TNP Estimated GFR (MDRD) > 60.0 ml/min Glucose 122 H (74-106) mg/dL Calcium 8.1 L (8.5-10.1) mg/dL Troponin I < 0.050 (0.000-0.056) ng/mL Meds: Medications Discontinued Medications Generic Name Dose Route Start Last Admin Trade Name Freq PRN Reason Stop Dose Admin Ondansetron HCl 4 mg 08/05/18 06:16 08/05/18 06:25 Zofran IVPUSH 08/05/18 06:17 4 mg ONETIME ONE Administration Departure - Departure Time of Disposition: 07:00 Disposition: Home, Self-Care 01 Condition: Good Clinical Impression: Chest pain - Discharge Information Referrals: PCP,Unknown [Primary Care Provider] - Additional Instructions: The following information is given to patients seen in the emergency department who are being discharged to home. This information is to outline your options for follow-up care. We provide all patients seen in our emergency department with a follow-up referral. The need for follow-up, as well as the timing and circumstances, are variable depending upon the specifics of your emergency department visit. If you don't have a primary care physician on staff, we will provide you with a referral. We always advise you to contact your personal physician following an emergency department visit to inform them of the circumstance of the visit and for follow-up with them and/or the need for any referrals to a consulting specialist. The emergency department will also refer you to a specialist when appropriate. This referral assures that you have the opportunity for followup care with a specialist. All of these measure are taken in an effort to provide you with optimal care, which includes your followup. Under all circumstances we always encourage you to contact your private physician who remains a resource for coordinating your care. When calling for followup care, please make the office aware that this follow-up is from your recent emergency room visit. If for any reason you are refused follow-up, please contact the [facility] emergency department at and asked to speak to the emergency department charge nurse. Follow-up private medical doctor as discussed return as needed as discussed continue current medications - My Orders Last 24 Hours: My Active Orders 08/05/18 05:49 Cardiac Monitoring [RC] . DIRECTED EKG Documentation Completion [RC] STAT - Assessment/Plan Last 24 Hours: My Active Orders 08/05/18 05:49 Cardiac Monitoring [RC] . DIRECTED EKG Documentation Completion [RC] STAT
[2018-08-05 07:09] VITALS: BP 131/82
== END 2018-08-05 07:22 | disposition home or self-care (01) ==
LOC: MW.ED 05:32
DX: R07.9 Chest pain, unspecified (principal); Z79.899 Other long term (current) drug therapy; Z88.0 Allergy status to penicillin; Z87.891 Personal history of nicotine dependence
CPT/HCPCS: 36415; 71045; 80048; 84484; 85025; 85730; 93005; 96374; 99285; J2405; 99284

== ENCOUNTER 2019-10-24 14:27 | Observation (INO) | payer OTHER ==
[2019-10-24] MEDS ORDERED: Sodium Chloride 0.9% 1,000 ML IV ONE (14:46)
[2019-10-24] MEDS ORDERED: Nitroglycerin 2% Oint 1 GM UD Packet TOP ONE (14:46)
[2019-10-24] MEDS ORDERED: Aspirin 81 MG Tab.Chew PO ONE (14:47)
--- NOTE | 2019-10-24 14:52 | EDM.PDOC ---
ED HPI GENERAL MEDICAL PROBLEM - General Chief Complaint: Chest Pain Stated Complaint: CHEST PAIN SINCE THIS AM Time Seen by Provider: 10/24/19 14:48 Source of Information: Reports: Patient History Limitations: Reports: No Limitations - History of Present Illness INITIAL COMMENTS - FREE TEXT/NARRATIVE: 54-year-old male presents the emergency room chief complaint of chest pain. Patient had chest pain that woke him out of sleep this morning midsternal increase with movement and deep breath. Pain radiates to the back of his shoulders. Patient's risk factors include hypertension, family history, and obesity. Patient seen in the clinic and instructed to come to the ER. Onset: Today Location: Reports: Chest Quality: Reports: Pressure Severity: Moderate Improves with: Reports: None Worsens with: Reports: None Associated Symptoms: Reports: No Other Symptoms Chest pain Pain Score (Numeric/FACES): 6 - Related Data Allergies Allergy/AdvReac Type Severity Reaction Status Date / Time Penicillins Allergy Unknown Cannot Verified 10/24/19 14:35 Remember Home Meds: Home Meds Enalapril [Vasotec] 20 mg PO DAILY 08/05/18 [History] clonazePAM [Klonopin] 0.5 mg PO DAILY 10/24/19 [History] Past Medical History - Past Health History Medical/Surgical History: Denies Medical/Surgical History HEENT History: Reports: Other (See Below) Other HEENT History: wears glasses Cardiovascular History: Reports: None Respiratory History: Reports: Sleep Apnea Other Respiratory History: uses CPAP Gastrointestinal History: Reports: Colon Polyp, GERD, Other (See Below) Other Gastrointestinal History: cholecystitis, reflux in the past, none recently Genitourinary History: Reports: Renal Calculus, Other (See Below) Other Genitourinary History: "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 They checked up on it" Musculoskeletal History: Reports: Fracture Other Musculoskeletal History: hx fx left arm Neurological History: Reports: None Psychiatric History: Reports: Anxiety, Depression Other Psychiatric History: depression and anxiety in the past, none recently Endocrine/Metabolic History: Reports: Obesity/BMI 30+ Hematologic History: Reports: None Immunologic History: Reports: None Oncologic (Cancer) History: Reports: None Dermatologic History: Reports: None - Infectious Disease History Infectious Disease History: Reports: Chicken Pox - Past Surgical History Head Surgeries/Procedures: Reports: None HEENT Surgical History: Reports: None Cardiovascular Surgical History: Reports: None Respiratory Surgical History: Reports: None GI Surgical History: Reports: Cholecystectomy, Colonoscopy, EGD Male Surgical History: Reports: None Endocrine Surgical History: Reports: None Musculoskeletal Surgical History: Reports: Other (See Below) Other Musculoskeletal Surgeries/Procedures:: Right Foot surgery Social & Family History - Family History Family Medical History: Noncontributory HEENT: Reports: None Cardiac: Reports: [place] Endocrine/Metabolic: Reports: Diabetes, type II - Tobacco Use Smoking Status *Q: Never Smoker Second Hand Smoke Exposure: No - Caffeine Use Caffeine Use: Reports: None - Recreational Drug Use Recreational Drug Use: No - Living Situation & Occupation Living situation: Reports: with Significant Other Occupation: Employed ED ROS GENERAL - Review of Systems Review Of Systems: See Below Constitutional: Reports: No Symptoms HEENT: Reports: No Symptoms Respiratory: Reports: No Symptoms Cardiovascular: Reports: Chest Pain Endocrine: Reports: No Symptoms, Fatigue GI/Abdominal: Reports: No Symptoms : Reports: No Symptoms Musculoskeletal: Reports: No Symptoms Skin: Reports: No Symptoms Neurological: Reports: No Symptoms Psychiatric: Reports: No Symptoms Hematologic/Lymphatic: Reports: No Symptoms Immunologic: Reports: No Symptoms ED EXAM, GENERAL - Physical Exam Exam: See Below Free Text/Narrative:: 54-year-old gentleman with chest pain. Patient's EKG and cardiac enzymes are normal. Has risk factors positive family history of an MN in his father at 53, high blood pressure, and obesity. Previous stress test 3 years ago Patient will be admitted to the telemetry/Dr. Swenson service observation Exam Limited By: No Limitations General Appearance: Alert, WD/WN, No Apparent Distress Eye Exam: Bilateral Eye: Normal Fundi, Normal Inspection Ears: Normal External Exam, Normal Canal, Hearing Grossly Normal, Normal TMs Ear Exam: Bilateral Ear: Auricle Normal, Canal Normal Nose: Normal Inspection, Normal Mucosa Throat/Mouth: Normal Inspection, Normal Lips Head: Atraumatic, Normocephalic Neck: Normal Inspection, Supple Respiratory/Chest: No Respiratory Distress, Lungs Clear, Normal Breath Sounds, No Accessory Muscle Use, Chest Non-Tender GI/Abdominal: Normal Bowel Sounds (Male) Exam: No Hernia, Normal Inspection, Deferred Rectal (Males) Exam: Deferred Back Exam: Normal Inspection, Full Range of Motion Extremities: Normal Inspection, Normal Range of Motion Neurological: Alert, Oriented, CN II-XII Intact, Normal Reflexes Psychiatric: Normal Affect, Normal Mood Skin Exam: Warm, Dry, Intact, Normal Color Lymphatic: No Adenopathy Course - Vital Signs Text/Narrative:: This gentleman presents to the emergency room with chest pain. Patient's EKG and cardiac enzymes as well as laboratory results are not reflective of an acute MN. However the patient has factors and therefore he will be admitted to telemetry observation. Shaunna the case with Dr. Swenson who will be the list admitting the patient. Patient will be admitted at this time and is pain-free. Last Recorded V/S: Last Vital Signs Temp 97.4 F 10/24/19 14:35 Pulse 87 10/24/19 15:00 Resp 17 10/24/19 15:00 BP 141/86 H 10/24/19 15:00 Pulse Ox 95 10/24/19 15:00 - Orders/Labs/Meds Orders: Active Orders 24 hr Category Date Time Status Admission Status [Patient Status] [ADT] Stat ADT 10/24/19 15:50 Ordered Labs: Laboratory Tests 10/24/19 10/24/19 Range/Units 14:40 14:40 WBC 6.57 (4.0-11.0) K/uL RBC 5.10 (4.50-5.90) M/uL Hgb 14.5 (13.0-17.0) g/dL Hct 43.4 (38.0-50.0) % MCV 85.1 (80.0-98.0) fL MCH 28.4 (27.0-32.0) pg MCHC 33.4 (31.0-37.0) g/dL RDW Std Deviation 41.3 (28.0-62.0) fl RDW Coeff of Kenneth 13 (11.0-15.0) % Plt Count 177 (150-400) K/uL MPV 9.50 (7.40-12.00) fL Neut % (Auto) 66.0 (48.0-80.0) % Lymph % (Auto) 21.2 (16.0-40.0) % [place] % (Auto) 8.7 (0.0-15.0) % Eos % (Auto) 3.5 (0.0-7.0) % Baso % (Auto) 0.6 (0.0-1.5) % Neut # (Auto) 4.3 (1.4-5.7) K/uL Lymph # (Auto) 1.4 (0.6-2.4) K/uL [place] # (Auto) 0.6 (0.0-0.8) K/uL Eos # (Auto) 0.2 (0.0-0.7) K/uL Baso # (Auto) 0.0 (0.0-0.1) K/uL Nucleated RBC % 0.0 /100WBC Nucleated RBCs # 0 K/uL Sodium 137 (136-148) mmol/L Potassium 4.0 (3.5-5.1) mmol/L Chloride 102 (98-107) mmol/L Carbon Dioxide 24.8 (21.0-32.0) mmol/L BUN 20 H (7.0-18.0) mg/dL Creatinine 1.1 (0.8-1.3) mg/dL Est Cr Clr Drug Dosing 87.77 mL/min Estimated GFR (MDRD) > 60.0 ml/min Glucose 115 H (74-106) mg/dL Calcium 8.8 (8.5-10.1) mg/dL Total Bilirubin 0.4 (0.2-1.0) mg/dL AST 28 (15-37) IU/L ALT 45 (14-63) IU/L Alkaline Phosphatase 115 (46-116) U/L Troponin I < 0.050 (0.000-0.056) ng/mL Total Protein 7.0 (6.4-8.2) g/dL Albumin 3.7 (3.4-5.0) g/dL Globulin 3.3 (2.6-4.0) g/dL Albumin/Globulin Ratio 1.1 (0.9-1.6) Meds: Medications Discontinued Medications Generic Name Dose Route Start Last Admin Trade Name Freq PRN Reason Stop Dose Admin Aspirin 324 mg 10/24/19 14:47 10/24/19 14:55 Aspirin PO 10/24/19 14:48 324 mg ONETIME ONE Administration Sodium Chloride 1,000 mls @ 1,000 mls/hr 10/24/19 14:46 10/24/19 14:56 Normal Saline IV 10/24/19 15:45 1,000 mls/hr .Bolus ONE Administration Nitroglycerin 1 gm 10/24/19 14:46 10/24/19 14:56 Nitro-Bid 2% TOP 10/24/19 14:47 1 gm ONETIME ONE Administration Departure - Departure Time of Disposition: 15:56 Disposition: Refer to Observation Condition: Good Clinical Impression: Chest pain at rest Referrals: Naresh Wright MD [Primary Care Provider] - Forms: ED Department Discharge Sepsis Event Note - Evaluation Sepsis Screening Result: No Definite Risk - Focused Exam Vital Signs: Vital Signs Temp Pulse Resp BP Pulse Ox 10/24/19 15:00 87 17 141/86 H 95 10/24/19 14:35 97.4 F 95 18 157/100 H 96 Date Exam was Performed: 10/24/19 Time Exam was Performed: 15:52 - My Orders Last 24 Hours: My Active Orders 10/24/19 15:50 Admission Status [Patient Status] [ADT] Stat - Assessment/Plan Last 24 Hours: My Active Orders 10/24/19 15:50 Admission Status [Patient Status] [ADT] Stat
[2019-10-24 15:23] LABS: BLOOD UREA NITROGEN,BUN 20 mg/dL (7.0-18.0); CARBON DIOXIDE,CO2 24.8 mmol/L (21.0-32.0); CHLORIDE,CL 102 mmol/L (98-107); GLUCOSE RANDOM 115 mg/dL (74-106); SODIUM,NA 137 mmol/L (136-148)
--- NOTE | 2019-10-24 15:29 | CR ---
Chest: Portable view of the chest was obtained. Comparison: Prior chest x-ray of 08/05/18. Heart size and mediastinum are normal. Lungs are clear with no acute parenchymal change. Bony structures are grossly intact. Impression: 1. Nothing acute is seen on portable chest x-ray. Diagnostic code #1 This report was dictated in MDT
[2019-10-24] MEDS ORDERED: Acetaminophen 500 MG Tab PO ONE (16:20)
[2019-10-24] MEDS ORDERED: Acetaminophen 500 MG Tab ONE (16:22)
[2019-10-24] MEDS ORDERED: Ondansetron 4 MG/2 ML SDV IVPUSH PRN (17:14)
[2019-10-24] MEDS ORDERED: Acetaminophen 325 MG Tab PO PRN (17:14)
[2019-10-24] MEDS ORDERED: Enoxaparin 40 MG/0.4 ML Syringe SUBCUT SCH (17:15)
--- NOTE | 2019-10-24 17:17 | PCM.HP.2 ---
H&P History of Present Illness - General Date of Service: 10/24/19 Admit Problem/Dx: Admission Diagnosis/Problem Admission Diagnosis/Problem Chest pain - History of Present Illness Initial Comments - Free Text/Narative: The patient is a 54 year old male with past medical history of HTN, anxiety, and sleep apnea who presented to the ER with sternal chest pain that woke him from his sleep. States it has been constant until he received nitro in the ER. It states its located where his ribs meet his sternum and it is tender to touch. Denies associated SOB, diaphoresis. Has been admitting yearly for the past few years for similar symptoms, work up has always been negative. Had NM stress test Jun 2018 without any significant findings, EF at that time was 61%. 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 Former smoker, 2-3 drinks/week, no alcohol. Missed BP pill last night. In the ER, workup revealed no leukocytosis, anemia, electrolyte imbalances. His troponin was negative and EKG showed NSR without ST changes. CXR showed no acute disease. IN the ER he was given ASA, Tylenol, and nitro past with some relief in pain. PCP- Dr. Wright Chest pain Pain Score (Numeric/FACES): 6 - Related Data Allergies/Adverse Reactions: Allergies Allergy/AdvReac Type Severity Reaction Status Date / Time Penicillins Allergy Unknown Cannot Verified 10/24/19 17:00 Remember Home Medications: Home Meds Enalapril [Vasotec] 20 mg PO DAILY 08/05/18 [History] clonazePAM [Klonopin] 0.5 mg PO DAILY 10/24/19 [History] Past Medical History - Past Health History Medical/Surgical History: Denies Medical/Surgical History HEENT History: Reports: Other (See Below) Other HEENT History: wears glasses Cardiovascular History: Reports: None Respiratory History: Reports: Sleep Apnea Other Respiratory History: uses CPAP Gastrointestinal History: Reports: Colon Polyp, GERD, Other (See Below) Other Gastrointestinal History: cholecystitis, reflux in the past, none recently Genitourinary History: Reports: Renal Calculus, Other (See Below) Other Genitourinary History: "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 They checked up on it" Musculoskeletal History: Reports: Fracture Other Musculoskeletal History: hx fx left arm Neurological History: Reports: None Psychiatric History: Reports: Anxiety, Depression Other Psychiatric History: depression and anxiety in the past, none recently Endocrine/Metabolic History: Reports: Obesity/BMI 30+ Hematologic History: Reports: None Immunologic History: Reports: None Oncologic (Cancer) History: Reports: None Dermatologic History: Reports: None - Infectious Disease History Infectious Disease History: Reports: Chicken Pox - Past Surgical History Head Surgeries/Procedures: Reports: None HEENT Surgical History: Reports: None Cardiovascular Surgical History: Reports: None Respiratory Surgical History: Reports: None GI Surgical History: Reports: Cholecystectomy, Colonoscopy, EGD Male Surgical History: Reports: None Endocrine Surgical History: Reports: None Musculoskeletal Surgical History: Reports: Other (See Below) Other Musculoskeletal Surgeries/Procedures:: Right Foot surgery Social & Family History - Family History Family Medical History: Noncontributory HEENT: Reports: None Cardiac: Reports: ID Endocrine/Metabolic: Reports: Diabetes, type II - Tobacco Use Smoking Status *Q: Former Smoker Years of Tobacco use: 1 Used Tobacco, but Quit: Yes Month/Year Tobacco Last Used: 2011 Second Hand Smoke Exposure: No - Caffeine Use Caffeine Use: Reports: Coffee, Soda - Alcohol Use Days Per Week of Alcohol Use: 2 Number of Drinks Per Day: 1 Total Drinks Per Week: 2 Date of Last Drink: 10/23/19 Time of Last Drink: 16:00 - Recreational Drug Use Recreational Drug Use: No - Living Situation & Occupation Living situation: Reports: with Significant Other Occupation: Employed H&P Review of Systems - Review of Systems: Review Of Systems: See Below General: Reports: No Symptoms HEENT: Reports: No Symptoms Pulmonary: Reports: No Symptoms Cardiovascular: Reports: Chest Pain. Denies: Edema Gastrointestinal: Reports: No Symptoms Genitourinary: Reports: No Symptoms Musculoskeletal: Reports: No Symptoms Skin: Reports: No Symptoms Psychiatric: Reports: No Symptoms Neurological: Reports: No Symptoms Hematologic/Lymphatic: Reports: No Symptoms Immunologic: Reports: No Symptoms Exam - Exam Exam: See Below - Vital Signs Vital Signs: Last Vital Signs Temp 98.1 F 10/24/19 16:35 Pulse 82 10/24/19 16:35 Resp 17 10/24/19 16:35 BP 137/95 H 10/24/19 16:35 Pulse Ox 96 10/24/19 16:35 Weight: 121.2 kg - Exam General: Alert, Oriented, Cooperative HEENT: Conjunctiva Clear, EOMI, Mucosa Moist & [place], Posterior Pharynx Clear, Pupils Equal, Pupils Reactive Lungs: Clear to Auscultation, Normal Respiratory Effort Cardiovascular: Regular Rate, Regular Rhythm, Other (anterior chest tender to palpation at chostochondral junction L>R) GI/Abdominal Exam: Normal Bowel Sounds, Soft, Non-Tender, No Distention Skin: Warm, Dry, Intact Neuro Extensive - Mental Status: Alert, Oriented x3 Psychiatric: Alert, Normal Affect, Normal Mood - Patient Data Lab Results Last 24 hrs: Laboratory Results - last 24 hr 10/24/19 10/24/19 Range/Units 14:40 14:40 WBC 6.57 (4.0-11.0) K/uL RBC 5.10 (4.50-5.90) M/uL Hgb 14.5 (13.0-17.0) g/dL Hct 43.4 (38.0-50.0) % MCV 85.1 (80.0-98.0) fL MCH 28.4 (27.0-32.0) pg MCHC 33.4 (31.0-37.0) g/dL RDW Std Deviation 41.3 (28.0-62.0) fl RDW Coeff of Kenneth 13 (11.0-15.0) % Plt Count 177 (150-400) K/uL MPV 9.50 (7.40-12.00) fL Neut % (Auto) 66.0 (48.0-80.0) % Lymph % (Auto) 21.2 (16.0-40.0) % [place] % (Auto) 8.7 (0.0-15.0) % Eos % (Auto) 3.5 (0.0-7.0) % Baso % (Auto) 0.6 (0.0-1.5) % Neut # (Auto) 4.3 (1.4-5.7) K/uL Lymph # (Auto) 1.4 (0.6-2.4) K/uL [place] # (Auto) 0.6 (0.0-0.8) K/uL Eos # (Auto) 0.2 (0.0-0.7) K/uL Baso # (Auto) 0.0 (0.0-0.1) K/uL Nucleated RBC % 0.0 /100WBC Nucleated RBCs # 0 K/uL Sodium 137 (136-148) mmol/L Potassium 4.0 (3.5-5.1) mmol/L Chloride 102 (98-107) mmol/L Carbon Dioxide 24.8 (21.0-32.0) mmol/L BUN 20 H (7.0-18.0) mg/dL Creatinine 1.1 (0.8-1.3) mg/dL Est Cr Clr Drug Dosing 87.77 mL/min Estimated GFR (MDRD) > 60.0 ml/min Glucose 115 H (74-106) mg/dL Calcium 8.8 (8.5-10.1) mg/dL Total Bilirubin 0.4 (0.2-1.0) mg/dL AST 28 (15-37) IU/L ALT 45 (14-63) IU/L Alkaline Phosphatase 115 (46-116) U/L Troponin I < 0.050 (0.000-0.056) ng/mL Total Protein 7.0 (6.4-8.2) g/dL Albumin 3.7 (3.4-5.0) g/dL Globulin 3.3 (2.6-4.0) g/dL Albumin/Globulin Ratio 1.1 (0.9-1.6) Result Diagrams: 10/24/19 14:40 10/24/19 14:40 Sepsis Event Note - Evaluation Sepsis Screening Result: No Definite Risk - Focused Exam Vital Signs: Vital Signs Temp Pulse Resp BP Pulse Ox 10/24/19 16:35 98.1 F 82 17 137/95 H 96 10/24/19 16:09 83 17 133/80 95 10/24/19 15:00 87 17 141/86 H 95 10/24/19 14:35 97.4 F 95 18 157/100 H 96 Date Exam was Performed: 10/24/19 Time Exam was Performed: 17:40 Problem List Initiated/Reviewed/Updated: Yes Orders Last 24hrs: Active Orders 24 hr Category Date Time Status Admission Status [Patient Status] [ADT] Stat ADT 10/24/19 15:50 Active Intake and Output [RC] ASDIRECTED Care 10/24/19 17:14 Ordered Telemetry Monitoring [Cardiac Monitoring] [RC] . Care 10/24/19 17:14 Ordered DIRECTED Vital Signs [RC] PER UNIT ROUTINE Care 10/24/19 17:14 Ordered Heart Healthy Diet [DIET] Diet 10/24/19 Dinner Ordered BASIC METABOLIC PANEL,BMP [CHEM] AM Lab 10/25/19 05:11 Ordered CBC WITH AUTO DIFF [HEME] AM Lab 10/25/19 05:11 Ordered TROPONIN I [CHEM] AM Lab 10/25/19 05:11 Ordered TROPONIN I [CHEM] Routine Lab 10/24/19 20:30 Ordered Acetaminophen [Tylenol] Med 10/24/19 17:14 Ordered 650 mg PO Q4H PRN Enoxaparin [Lovenox] Med 10/24/19 17:15 Ordered 40 mg SUBCUT Q24H Ondansetron [Zofran] Med 10/24/19 17:14 Ordered 4 mg IVPUSH Q4H PRN Resuscitation Status Routine Resus Stat 10/24/19 17:14 Ordered Medication Orders Acetaminophen (Tylenol) 650 mg PO Q4H PRN PRN Reason: Pain/Fever Enoxaparin Sodium (Lovenox) 40 mg SUBCUT Q24H REINA Ondansetron HCl (Zofran) 4 mg IVPUSH Q4H PRN PRN Reason: Nausea/Vomiting Assessment/Plan Comment:: 1. Admit for observation 2.Code status- full 3. Vitals per routine 4. I/Os per routine 5. Diet- heart healthy 6. DVT prophylaxis with Lovenox 7. Chest pain ACS r/o- will trend troponin and monitor on telemetry. Could be costochondritis with hx of recent heavy lifting and tenderness along costochondral junction. 8. Chronic conditions- HTN, anxiety and sleep apnea- will continue home meds and will wear CPAP machine from home tonight.
[2019-10-24] MEDS ORDERED: ClonazePAM 1 MG Tab PO SCH (21:30)
[2019-10-25 06:48] LABS: BLOOD UREA NITROGEN,BUN 14 mg/dL (7.0-18.0); CARBON DIOXIDE,CO2 28.1 mmol/L (21.0-32.0); CHLORIDE,CL 105 mmol/L (98-107); GLUCOSE RANDOM 114 mg/dL (74-106); POTASSIUM,K 4.7 mmol/L (3.5-5.1); SODIUM,NA 140 mmol/L (136-148)
--- NOTE | 2019-10-25 07:50 | PCM.DCSUM1 ---
Discharge Summary - Hospital Course HPI Initial Comments: Admission Date: 10/24/19 Discharge Date: 10/25/19 Admission Diagnosis: 1. Chest pain 2. Chronic conditions- HTN, Anxiety, sleep apnea Discharge Diagnosis: 1. Chest pain- likely costochondritis- resolved 2. Chronic conditions- HTN, Anxiety, sleep apnea Procedures: None Consults: None Hospital Course: The patient is a 54-year-old male with past medical history of HTN, anxiety, and sleep apnea who presented to the ER with sternal chest pain that woke him from his sleep. It states its located where his ribs meet his sternum and it is tender to touch. Has recently been doing heavy lifting. Has been admitting yearly for the past few years for similar symptoms, work up has always been negative. Had NM stress test Jun 2018 without any significant findings, EF at that time was 61%. In the ER, workup revealed no leukocytosis, anemia, electrolyte imbalances. His troponin was negative, and EKG showed NSR without ST changes. CXR showed no acute disease. IN the ER he was given ASA, Tylenol, and nitro past with some relief in pain. Was admitted to medical floor for observation. Troponins were trended and negative x 3. No significant findings on telemetry. Was continued on home medications for chronic conditions. By day of discharge, symptoms had resolved, and patient was requesting discharge. We offered further workup with outpatinet stress test but patient declined. He wanted to speak with his PCP first. Disposition: Home Discharge Condition: vitals stable, tolerating oral diet, ambulating without difficulty, symptom improvement Discharge Instructions: regular diet as tolerated, activity as tolerated, take medications as prescribed. Symptoms to report to physician include fever/chills , chest pain, shortness of breath, abdominal pain, erythema, drainage/discharge , or not improving as expected. Discharge Medications: Enalapril [Vasotec] 20 mg PO DAILY clonazePAM [Klonopin] 0.5 mg PO DAILY Follow-up: PCP- Dr. Wright - Discharge Data Discharge Date: 10/25/19 Discharge Disposition: Home, Self-Care 01 Condition: Fair - Referral to Home Health Primary Care Physician: Naresh Wright MD - Discharge Plan Home Medications: Home Meds Enalapril [Vasotec] 20 mg PO DAILY 08/05/18 [History] clonazePAM [Klonopin] 0.5 mg PO DAILY 10/24/19 [History] Patient Handouts: Nonspecific Chest Pain, Adult, [id number] Referrals: [facility] [Outside] - 10/31/19 9:45 am Naresh Wright MD [Primary Care Provider] - (Arrive 15 minutes early with a photo ID and insurance card. If you are not early, they will not see you. ) - Discharge Summary/Plan Comment DC Time >30 min.: No - Patient Data Vitals - Most Recent: Last Vital Signs Temp 98.2 F 10/25/19 03:50 Pulse 63 10/25/19 03:50 Resp 20 10/25/19 03:50 BP 125/70 10/25/19 03:50 Pulse Ox 96 10/25/19 03:50 Weight - Most Recent: 121.2 kg I&O - Last 24 hours: Intake & Output 10/24/19 10/25/19 10/25/19 22:59 06:59 14:59 Intake Total 500 Output Total 900 Balance -400 Lab Results - Last 24 hrs: Laboratory Results - last 24 hr 10/24/19 10/24/19 10/24/19 Range/Units 14:40 14:40 20:40 WBC 6.57 (4.0-11.0) K/uL RBC 5.10 (4.50-5.90) M/uL Hgb 14.5 (13.0-17.0) g/dL Hct 43.4 (38.0-50.0) % MCV 85.1 (80.0-98.0) fL MCH 28.4 (27.0-32.0) pg MCHC 33.4 (31.0-37.0) g/dL RDW Std Deviation 41.3 (28.0-62.0) fl RDW Coeff of Kenneth 13 (11.0-15.0) % Plt Count 177 (150-400) K/uL MPV 9.50 (7.40-12.00) fL Neut % (Auto) 66.0 (48.0-80.0) % Lymph % (Auto) 21.2 (16.0-40.0) % [place] % (Auto) 8.7 (0.0-15.0) % Eos % (Auto) 3.5 (0.0-7.0) % Baso % (Auto) 0.6 (0.0-1.5) % Neut # (Auto) 4.3 (1.4-5.7) K/uL Lymph # (Auto) 1.4 (0.6-2.4) K/uL [place] # (Auto) 0.6 (0.0-0.8) K/uL Eos # (Auto) 0.2 (0.0-0.7) K/uL Baso # (Auto) 0.0 (0.0-0.1) K/uL Nucleated RBC % 0.0 /100WBC Nucleated RBCs # 0 K/uL Sodium 137 (136-148) mmol/L Potassium 4.0 (3.5-5.1) mmol/L Chloride 102 (98-107) mmol/L Carbon Dioxide 24.8 (21.0-32.0) mmol/L BUN 20 H (7.0-18.0) mg/dL Creatinine 1.1 (0.8-1.3) mg/dL Est Cr Clr Drug Dosing 87.77 mL/min Estimated GFR (MDRD) > 60.0 ml/min Glucose 115 H (74-106) mg/dL Calcium 8.8 (8.5-10.1) mg/dL Total Bilirubin 0.4 (0.2-1.0) mg/dL AST 28 (15-37) IU/L ALT 45 (14-63) IU/L Alkaline Phosphatase 115 (46-116) U/L Troponin I < 0.050 < 0.050 (0.000-0.056) ng/mL Total Protein 7.0 (6.4-8.2) g/dL Albumin 3.7 (3.4-5.0) g/dL Globulin 3.3 (2.6-4.0) g/dL Albumin/Globulin Ratio 1.1 (0.9-1.6) 10/25/19 10/25/19 Range/Units 05:59 05:59 WBC 5.21 (4.0-11.0) K/uL RBC 4.97 (4.50-5.90) M/uL Hgb 13.9 (13.0-17.0) g/dL Hct 42.9 (38.0-50.0) % MCV 86.3 (80.0-98.0) fL MCH 28.0 (27.0-32.0) pg MCHC 32.4 (31.0-37.0) g/dL RDW Std Deviation 42.7 (28.0-62.0) fl RDW Coeff of Kenneth 14 (11.0-15.0) % Plt Count 165 (150-400) K/uL MPV 9.80 (7.40-12.00) fL Neut % (Auto) 61.4 (48.0-80.0) % Lymph % (Auto) 22.8 (16.0-40.0) % [place] % (Auto) 9.8 (0.0-15.0) % Eos % (Auto) 5.0 (0.0-7.0) % Baso % (Auto) 1.0 (0.0-1.5) % Neut # (Auto) 3.2 (1.4-5.7) K/uL Lymph # (Auto) 1.2 (0.6-2.4) K/uL [place] # (Auto) 0.5 (0.0-0.8) K/uL Eos # (Auto) 0.3 (0.0-0.7) K/uL Baso # (Auto) 0.1 (0.0-0.1) K/uL Nucleated RBC % 0.0 /100WBC Nucleated RBCs # 0 K/uL Sodium 140 (136-148) mmol/L Potassium 4.7 (3.5-5.1) mmol/L Chloride 105 (98-107) mmol/L Carbon Dioxide 28.1 (21.0-32.0) mmol/L BUN 14 (7.0-18.0) mg/dL Creatinine 1.1 (0.8-1.3) mg/dL Est Cr Clr Drug Dosing 87.77 mL/min Estimated GFR (MDRD) > 60.0 ml/min Glucose 114 H (74-106) mg/dL Calcium 8.6 (8.5-10.1) mg/dL Total Bilirubin (0.2-1.0) mg/dL AST (15-37) IU/L ALT (14-63) IU/L Alkaline Phosphatase (46-116) U/L Troponin I < 0.050 (0.000-0.056) ng/mL Total Protein (6.4-8.2) g/dL Albumin (3.4-5.0) g/dL Globulin (2.6-4.0) g/dL Albumin/Globulin Ratio (0.9-1.6) Med Orders - Current: Current Medications Acetaminophen (Tylenol) 650 mg PO Q4H PRN PRN Reason: Pain/Fever Clonazepam (Klonopin) 0.5 mg PO BEDTIME [facility] Last Admin: 10/24/19 21:58 Dose: 0.5 mg Enalapril Maleate (Vasotec) 20 mg PO BEDTIME [facility] Last Admin: 10/24/19 21:57 Dose: 20 mg Enoxaparin Sodium (Lovenox) 40 mg SUBCUT Q24H [facility] Last Admin: 10/24/19 18:03 Dose: 40 mg Ondansetron HCl (Zofran) 4 mg IVPUSH Q4H PRN PRN Reason: Nausea/Vomiting Discontinued Medications Acetaminophen (Tylenol Extra Strength) 1,000 mg PO ONETIME ONE Stop: 10/24/19 16:21 Last Admin: 10/24/19 16:23 Dose: 1,000 mg Acetaminophen (Tylenol Extra Strength) Confirm Administered Dose 1,000 mg .ROUTE .STK-MED ONE Stop: 10/24/19 16:23 Last Admin: 10/24/19 18:06 Dose: Not Given Aspirin (Aspirin) 324 mg PO ONETIME ONE Stop: 10/24/19 14:48 Last Admin: 10/24/19 14:55 Dose: 324 mg Clonazepam (Klonopin) 0.5 mg PO DAILY [facility] Enalapril Maleate (Vasotec) 20 mg PO DAILY [facility] Sodium Chloride (Normal Saline) 1,000 mls @ 1,000 mls/hr IV .Bolus ONE Stop: 10/24/19 15:45 Last Admin: 10/24/19 14:56 Dose: 1,000 mls/hr Nitroglycerin (Nitro-Bid 2%) 1 gm TOP ONETIME ONE Stop: 10/24/19 14:47 Last Admin: 10/24/19 14:56 Dose: 1 gm
[2019-10-25 10:12] VITALS: BP 117/67; PULSE 73
[2019-10-25] MEDS ORDERED: ClonazePAM 1 MG Tab PO SCH (21:00)
== END 2019-10-25 09:50 | disposition home or self-care (01) ==
LOC: MW.ED 14:27 → MW.MS 15:50
PROVIDERS: ADMIT Internal Medicine; ATTEND Internal Medicine
DX: R07.2 Precordial pain (principal); I10 Essential (primary) hypertension; F41.9 Anxiety disorder, unspecified; G47.30 Sleep apnea, unspecified; E66.9 Obesity, unspecified; Z88.0 Allergy status to penicillin; Z79.899 Other long term (current) drug therapy; Z87.891 Personal history of nicotine dependence; Z68.35 Body mass index [BMI] 35.0-35.9, adult
CPT/HCPCS: 36415; 71045; 80048; 80053; 84484; 85025; 93005; 96360; 99285; A9270; J1650; J7030; 99284

== ENCOUNTER 2019-11-15 07:57 | Emergency (ER) | payer OTHER ==
[2019-11-15] MEDS ORDERED: Sodium Chloride 0.9% 1,000 ML IV ONE (08:12)
[2019-11-15] MEDS ORDERED: Nitroglycerin 2% Oint 1 GM UD Packet TOP ONE (08:12)
[2019-11-15] MEDS ORDERED: Sodium Chloride 0.9% 10 ML Syringe FLUSH PRN (08:12)
[2019-11-15] MEDS ORDERED: Sodium Chloride 0.9% 2.5 ML Syringe FLUSH PRN (08:12)
[2019-11-15] MEDS ORDERED: Aspirin 81 MG Tab.Chew PO ONE (08:12)
--- NOTE | 2019-11-15 08:18 | EDM.PDOC ---
ED [facility] GENERAL MEDICAL PROBLEM - General Chief Complaint: Chest Pain Stated Complaint: CHEST PAIN Time Seen by Provider: 11/15/19 08:03 - History of Present Illness INITIAL COMMENTS - FREE TEXT/NARRATIVE: HISTORY AND PHYSICAL: History of present illness: This 54-year-old male with a past medical history of hypertension, recently treated for anxiety, and family medical history of father dying from sudden cardiac arrest at age 53 presents to the emergency department complaining of a sudden onset of chest pain that began last night around 7 PM. He states that he was changing a truck tire but did not lift anything heavy. When this started he became diaphoretic and felt short of breath and also had some lightheadedness and vertigo type feelings. The pain is was a pressure type sensation felt very heavy and radiated to his left arm and he also notices some pain in his left leg. This is slightly worse than previous episodes which she was evaluated and admitted to the hospital for serial examination. He has not had a stress test or an angiogram. He has not had a CT angiogram. Patient reports that he takes enalapril for his blood pressure and bupropion for his anxiety/depression. No personal history of DVT or PE. No family history of those. He does not smoke. He is a social drinker. Now his pain is essentially resolved. He does have an achy type sensation in the left arm and does feel short of breath. This was very distressing to him and he did not want to drive all the way to [facility] for evaluation. Review of systems: A 10-point review of systems, other than pertinent positives and negatives as stated per HPI, is otherwise negative. Past medical history: As per history of present illness and as reviewed below otherwise noncontributory. Surgical history: As per history of present illness and as reviewed below otherwise noncontributory. Social history: No reported history of drug or alcohol abuse. Family history: As per history of present illness and as reviewed below otherwise noncontributory. Physical exam: VITAL SIGNS: Reviewed. GENERAL: Mild distress. Occasionally taking deep breaths. Reports that he feels short of breath. No diaphoresis. HEAD: No signs of head trauma. EYES: Pupils are equal. Extraocular motions intact. EARS: Hearing grossly intact. MOUTH: Oropharynx is normal. NECK: No adenopathy, no JVD. CHEST: Chest with clear breath sounds bilaterally. No wheezes, rales, or rhonchi. CARDIAC: Regular rate and rhythm. Normal S1 and S2, without murmurs, gallops, or rubs. VASCULAR: Peripheral pulses normal and equal in all extremities. ABDOMEN: Soft, without detectable tenderness. No sign of distention. No rebound or guarding, and no masses palpated. MUSCULOSKELETAL: Good range of motion of all major joints. Extremities without clubbing, cyanosis or edema. NEUROLOGIC EXAM: Alert and oriented x 3. No focal sensory or motor deficits. Speech normal. Follows commands. PSYCHIATRIC: Mood normal. SKIN: No rash or lesions. Initial Differential Diagnosis & Plan: Differential diagnosis includes acute myocardial infarction, pulmonary embolism , aortic dissection, pneumothorax, and esophageal rupture. Cardiac enzymes and EKG will be done for the possibility of myocardial infarction as well as pericarditis and myocarditis. Chest x-ray will be done to screen for pneumonia or pneumothorax. Pulmonary embolism risk factors were queried (no recent trauma or surgery, no personal history of DVT, no family history, no cancer, no calf tenderness or swelling, no hypercoagulability per PMH, no tobacco, no immobility) Given the presentation with radiation to the arms and legs along with shortness of breath I will obtain a CT angiogram of the chest to rule out dissection and pulmonary embolism. He will be evaluated for acute myocardial infarction. He has underlying left ventricular hypertrophy on his EKG but no evidence of acute ischemic changes. Definitive disposition and diagnosis as appropriate pending reevaluation and review of above. Chest Pain Score (Numeric/FACES): 6 - Related Data Allergies Allergy/AdvReac Type Severity Reaction Status Date / Time Penicillins Allergy Unknown Cannot Verified 11/15/19 08:12 Remember Home Meds: Home Meds Enalapril [Vasotec] 1 tab PO DAILY 11/15/19 [History] buPROPion [Wellbutrin] 1 tab PO DAILY 11/15/19 [History] Past Medical History - Past Health History Medical/Surgical History: Denies Medical/Surgical History HEENT History: Reports: Other (See Below) Other HEENT History: wears glasses Cardiovascular History: Reports: None Respiratory History: Reports: Sleep Apnea Other Respiratory History: uses CPAP Gastrointestinal History: Reports: Colon Polyp, GERD, Other (See Below) Other Gastrointestinal History: cholecystitis, reflux in the past, none recently Genitourinary History: Reports: Renal Calculus, Other (See Below) Other Genitourinary History: "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 They checked up on it" Musculoskeletal History: Reports: Fracture Other Musculoskeletal History: hx fx left arm Neurological History: Reports: None Psychiatric History: Reports: Anxiety, Depression Other Psychiatric History: depression and anxiety in the past, none recently Endocrine/Metabolic History: Reports: Obesity/BMI 30+ Hematologic History: Reports: None Immunologic History: Reports: None Oncologic (Cancer) History: Reports: None Dermatologic History: Reports: None - Infectious Disease History Infectious Disease History: Reports: Chicken Pox - Past Surgical History Head Surgeries/Procedures: Reports: None HEENT Surgical History: Reports: None Cardiovascular Surgical History: Reports: None Respiratory Surgical History: Reports: None GI Surgical History: Reports: Cholecystectomy, Colonoscopy, EGD Male Surgical History: Reports: None Endocrine Surgical History: Reports: None Musculoskeletal Surgical History: Reports: Other (See Below) Other Musculoskeletal Surgeries/Procedures:: Right Foot surgery Social & Family History - Family History Family Medical History: Noncontributory HEENT: Reports: None Cardiac: Reports: [place] Endocrine/Metabolic: Reports: Diabetes, type II - Caffeine Use Caffeine Use: Reports: Coffee, Soda - Living Situation & Occupation Living situation: Reports: with Significant Other Occupation: Employed ED ROS GENERAL - Review of Systems Review Of Systems: Unable To Obtain (noted) Reason Not Obtained: noted ED EXAM, GENERAL - Physical Exam Exam: Not Obtained (noted) EKG INTERPRETATION EKG Interpretation Comments: 12 lead EKG interpretation Obtained: November 15, 2019 at 7:59 AM Rhythm: Sinus Rate: 74 [place]: Normal Intervals: Left ventricular hypertrophy ST/T Segments: No acute ischemic changes Interpretation: Sinus rhythm with left ventricular hypertrophy Course - Vital Signs Last Recorded V/S: Last Vital Signs Temp 97.3 F 11/15/19 08:13 Pulse 60 11/15/19 10:18 Resp 17 11/15/19 10:18 BP 130/80 11/15/19 10:18 Pulse Ox 98 11/15/19 10:18 - Orders/Labs/Meds Orders: Active Orders 24 hr Category Date Time Status EKG 12 Lead [EKG Documentation Completion] [RC] STAT Care 11/15/19 08:05 Active Chest 1V Frontal [CR] Stat Exams 11/15/19 08:12 Taken INR,PT,PROTHROMBIN TIME [COAG] Stat Lab 11/15/19 10:17 Ordered PTT,PARTIAL THROMBOPLSTIN TIME [COAG] Stat Lab 11/15/19 10:17 Ordered Heparin Sod,Pork In 0.45% Nacl [Heparin-1/2Ns 25,000 Med 11/15/19 10:30 Active Units/500] 25,000 unit in 500 ml IV TITRATE Sodium Chloride 0.9% [Saline Flush] Med 11/15/19 08:12 Active 10 ml FLUSH ASDIRECTED PRN Sodium Chloride 0.9% [Saline Flush] Med 11/15/19 08:12 Active 2.5 ml FLUSH ASDIRECTED PRN Saline Lock Insert [OM.PC] Stat Oth 11/15/19 08:12 Ordered Medication Orders Heparin Sodium/Sodium Chloride (Heparin-1/2ns 25,000 Units/500) 25,000 unit in 500 mls @ 27.978 mls/hr IV TITRATE REINA; Protocol Sodium Chloride (Saline Flush) 10 ml FLUSH ASDIRECTED PRN PRN Reason: Keep Vein Open Last Admin: 11/15/19 08:24 Dose: 10 ml Sodium Chloride (Saline Flush) 2.5 ml FLUSH ASDIRECTED PRN PRN Reason: Keep Vein Open Last Admin: 11/15/19 08:24 Dose: 2.5 ml Labs: Laboratory Tests 11/15/19 11/15/19 11/15/19 Range/Units 08:06 08:06 08:22 WBC 5.16 (4.0-11.0) K/uL RBC 4.93 (4.50-5.90) M/uL Hgb 13.7 (13.0-17.0) g/dL Hct 41.8 (38.0-50.0) % MCV 84.8 (80.0-98.0) fL MCH 27.8 (27.0-32.0) pg MCHC 32.8 (31.0-37.0) g/dL RDW Std Deviation 40.0 (28.0-62.0) fl RDW Coeff of Kenneth 13 (11.0-15.0) % Plt Count 172 (150-400) K/uL MPV 9.40 (7.40-12.00) fL Neut % (Auto) 64.5 (48.0-80.0) % Lymph % (Auto) 23.4 (16.0-40.0) % [place] % (Auto) 7.2 (0.0-15.0) % Eos % (Auto) 4.3 (0.0-7.0) % Baso % (Auto) 0.6 (0.0-1.5) % Neut # (Auto) 3.3 (1.4-5.7) K/uL Lymph # (Auto) 1.2 (0.6-2.4) K/uL [place] # (Auto) 0.4 (0.0-0.8) K/uL Eos # (Auto) 0.2 (0.0-0.7) K/uL Baso # (Auto) 0.0 (0.0-0.1) K/uL Nucleated RBC % 0.0 /100WBC Nucleated RBCs # 0 K/uL Sodium 140 (136-148) mmol/L Potassium 3.9 (3.5-5.1) mmol/L Chloride 105 (98-107) mmol/L Carbon Dioxide 26.0 (21.0-32.0) mmol/L BUN 19 H (7.0-18.0) mg/dL Creatinine 1.3 (0.8-1.3) mg/dL Est Cr Clr Drug Dosing 67.85 mL/min Estimated GFR (MDRD) 57.7 ml/min Glucose 138 H (74-106) mg/dL Calcium 8.2 L (8.5-10.1) mg/dL Total Bilirubin 0.3 (0.2-1.0) mg/dL AST 23 (15-37) IU/L ALT 40 (14-63) IU/L Alkaline Phosphatase 134 H (46-116) U/L Troponin I < 0.050 (0.000-0.056) ng/mL Total Protein 7.2 (6.4-8.2) g/dL Albumin 3.6 (3.4-5.0) g/dL Globulin 3.6 (2.6-4.0) g/dL Albumin/Globulin Ratio 1.0 (0.9-1.6) Urine Color YELLOW Urine Appearance CLEAR Urine pH 6.0 (5.0-8.0) Ur Specific [place] 1.025 (1.001-1.035) Urine Protein 100 H (NEGATIVE) mg/dL Urine Glucose (UA) NEGATIVE (NEGATIVE) mg/dL Urine Ketones NEGATIVE (NEGATIVE) mg/dL Urine Occult Blood LARGE H (NEGATIVE) Urine Nitrite NEGATIVE (NEGATIVE) Urine Bilirubin NEGATIVE (NEGATIVE) Urine Urobilinogen 1.0 (<2.0) EU/dL Ur Leukocyte Esterase NEGATIVE (NEGATIVE) Urine RBC 5-10 (0-2/HPF) Urine WBC 0-2 (0-5/HPF) Ur Epithelial Cells RARE (NONE-FEW) Urine Bacteria RARE (NEGATIVE) Meds: Medications Generic Name Dose Route Start Last Admin Trade Name Magda PRN Reason Stop Dose Admin Heparin Sodium/Sodium Chloride 25,000 unit in 500 mls @ 27.978 mls/hr 10:30 Heparin-1/2ns 25,000 Units/500 IV TITRATE REINA Protocol 12 UNITS/KG/HR Sodium Chloride 10 ml 11/15/19 08:12 11/15/19 08:24 Saline Flush FLUSH 10 ml ASDIRECTED PRN Administration Keep Vein Open Sodium Chloride 2.5 ml 11/15/19 08:12 11/15/19 08:24 Saline Flush FLUSH 2.5 ml ASDIRECTED PRN Administration Keep Vein Open Discontinued Medications Generic Name Dose Route Start Last Admin Trade Name Magda PRN Reason Stop Dose Admin Aspirin 324 mg 11/15/19 08:12 11/15/19 08:24 Aspirin PO 11/15/19 08:13 324 mg ONETIME ONE Administration Heparin Sodium (Porcine) 4,000 units 11/15/19 10:16 Heparin Sodium IVPUSH 11/15/19 10:17 .BOLUS ONE Sodium Chloride 1,000 mls @ 999 mls/hr 11/15/19 08:12 11/15/19 08:25 Normal Saline IV 11/15/19 09:12 999 mls/hr BOLUS ONE Administration Iopamidol 60 ml 11/15/19 09:07 11/15/19 09:07 Isovue Multipack-370 (76%) IVPUSH 11/15/19 09:08 60 ml ONETIME STA Administration Nitroglycerin 1 gm 11/15/19 08:12 11/15/19 08:24 Nitro-Bid 2% TOP 11/15/19 08:13 1 gm ONETIME ONE Administration - Re-Assessments/Exams Free Text/Narrative Re-Assessment/Exam: 11/15/19 10:21 I spoke to [place] emergency department, Dr. Omer, and he has accepted the patient. Given that the patient has characteristics of unstable angina I will heparinize the patient. We will give a heparin bolus and heparin drip. Critical Care Note: The patient presented in critical status due to unstable angina requiring heparinization and transfer The patient required rapid exam, decision making, and frequent re-evaluations during their time in the Emergency Department. Total Critical Care time exclusive of all other billable procedure time provided by myself 45 minutes Medical decision making: The patient presents with chest pain with high risk features. His heart score is 3 for his story, 1 for age, 0 for troponin, 1 for EKG, 2 for past medical history and risk factors. HEART Score for Major Cardiac Events from [employer] on 11/15/2019 All calculations should be rechecked by clinician prior to use RESULT SUMMARY: 6 points Moderate Score (4-6 points) Risk of MACE of 12-16.6%. INPUTS: History > 2 = Highly suspicious EKG > 1 = Non-specific repolarization disturbance Age > 1 = 45-64 Risk factors > 2 = ?3 risk factors or history of atherosclerotic disease Initial troponin > 0 = ?normal limit The patient has a normal chest CT without evidence of pulmonary embolism, aortic dissection, or other significant abnormalities. My diagnostic impression: 1. Unstable angina 2. History of hypertension 3. BMI greater than 35 4. Family history of father of sudden cardiac at age 53 I have arranged for the patient to be transferred via ALS ambulance to [facility]. Departure - Departure Time of Disposition: 10:25 Disposition: DC/Tfer to Acute Hospital 02 Reason for Transfer *Q: Other (unstable angina) Clinical Impression: Unstable angina Referrals: Naresh Wright MD [Primary Care Provider] - Forms: ED Department Discharge Sepsis Event Note - Focused Exam Vital Signs: Vital Signs Temp Pulse Resp BP Pulse Ox 11/15/19 10:18 60 17 130/80 98 11/15/19 09:20 68 18 125/81 97 11/15/19 08:34 74 18 145/80 H 97 11/15/19 08:13 97.3 F 84 20 149/87 H 97 Date Exam was Performed: 11/15/19 Time Exam was Performed: 10:21 - My Orders Last 24 Hours: My Active Orders 11/15/19 08:05 EKG 12 Lead [EKG Documentation Completion] [RC] STAT 11/15/19 08:12 Chest 1V Frontal [CR] Stat Sodium Chloride 0.9% [Saline Flush] 10 ml FLUSH ASDIRECTED PRN Sodium Chloride 0.9% [Saline Flush] 2.5 ml FLUSH ASDIRECTED PRN Saline Lock Insert [OM.PC] Stat 11/15/19 10:17 INR,PT,PROTHROMBIN TIME [COAG] Stat PTT,PARTIAL THROMBOPLSTIN TIME [COAG] Stat 11/15/19 10:30 Heparin Sod,Pork In 0.45% Nacl [Heparin-1/2Ns 25,000 Units/500] 25,000 unit in 500 ml IV TITRATE - Assessment/Plan Last 24 Hours: My Active Orders 11/15/19 08:05 EKG 12 Lead [EKG Documentation Completion] [RC] STAT 11/15/19 08:12 Chest 1V Frontal [CR] Stat Sodium Chloride 0.9% [Saline Flush] 10 ml FLUSH ASDIRECTED PRN Sodium Chloride 0.9% [Saline Flush] 2.5 ml FLUSH ASDIRECTED PRN Saline Lock Insert [OM.PC] Stat 11/15/19 10:17 INR,PT,PROTHROMBIN TIME [COAG] Stat PTT,PARTIAL THROMBOPLSTIN TIME [COAG] Stat 11/15/19 10:30 Heparin Sod,Pork In 0.45% Nacl [Heparin-1/2Ns 25,000 Units/500] 25,000 unit in 500 ml IV TITRATE
[2019-11-15 08:43] LABS: BLOOD UREA NITROGEN,BUN 19 mg/dL (7.0-18.0); CHLORIDE,CL 105 mmol/L (98-107); GLUCOSE RANDOM 138 mg/dL (74-106); POTASSIUM,K 3.9 mmol/L (3.5-5.1); SODIUM,NA 140 mmol/L (136-148)
[2019-11-15] MEDS ORDERED: Iopamidol 755 MG/ML 500 ML Multipack Bottle IVPUSH STA (09:07)
--- NOTE | 2019-11-15 09:29 | CT ---
CT chest Technique: Multiple axial sections through the chest were obtained. Intravenous contrast was utilized. Study has been performed as a pulmonary angiogram protocol. Findings: Increased number and size of mediastinal lymph nodes are seen. Hilar lymph nodes are also noted. No axillary adenopathy is appreciated. Aorta shows no aneurysm. Atherosclerotic change is noted within the thoracic aorta. Minimal atherosclerotic calcification is seen within the coronary arteries. No filling defects of pulmonary embolism are seen. No pericardial thickening is seen. Visualized upper abdominal structures shows no discrete abnormality. Lungs are clear with no acute parenchymal change. No pleural effusions are seen. Bone window settings were reviewed which shows mild degenerative endplate spurring within the thoracic spine. No acute osseous finding is appreciated. Impression: 1. Increased size and number of mediastinal and hilar lymph nodes. This finding is nonspecific and could represent old inflammatory process, acute viral infection as well as lymphoproliferative neoplasm. 2. No findings of pulmonary embolism. 3. Other findings as noted above believed to be incidental. Diagnostic code #9 This report was dictated in MDT
[2019-11-15] MEDS ORDERED: Heparin Sodium 5,000 Units/ML Vial IVPUSH ONE (10:16)
[2019-11-15 10:18] VITALS: BP 130/80; PULSE 60
[2019-11-15] MEDS ORDERED: Heparin Sod,Pork In 0.45% Nacl 25,000 UNIT/500 ML IV.SOLN IV ONE (10:29)
[2019-11-15] MEDS ORDERED: Heparin Sod,Pork In 0.45% Nacl 25,000 UNIT/500 ML IV.SOLN IV SCH (10:30)
--- NOTE | 2019-11-15 11:18 | CR ---
Chest: Portable view of the chest was obtained. Comparison: Prior chest x-ray of 10/24/19. Heart size and mediastinum are normal. Lungs are clear with no acute parenchymal change. Bony structures are grossly intact. Impression: 1. Nothing acute is seen on portable chest x-ray. Diagnostic code #1 This report was dictated in MDT
== END 2019-11-15 11:03 ==
LOC: MW.ED 07:57
DX: I20.0 Unstable angina (principal); R42 Dizziness and giddiness; F41.9 Anxiety disorder, unspecified; F32.9 Major depressive disorder, single episode, unspecified; E66.9 Obesity, unspecified; Z68.36 Body mass index [BMI] 36.0-36.9, adult; Z88.0 Allergy status to penicillin; Z79.899 Other long term (current) drug therapy
CPT/HCPCS: 71045; 71045-26; 71275; 71275-26; 80053; 81001; 84484; 85025; 85610; 85730; 93005; 96361; 96365; 99285; 99285-25; 99291; A9270-GY; J1644; J7030; Q9967

== ENCOUNTER 2020-12-25 05:03 | Inpatient (IN) | payer OTHER ==
[2020-12-25] MEDS ORDERED: Diltiazem 25 MG/5 ML SDV IVPUSH ONE ×2 (05:18→06:05)
--- NOTE | 2020-12-25 05:36 | PCM.EKG ---
#1 Interpretation EKG Date: 12/25/20 Time: 05:06 Rhythm: A-Fib Rate (Beats/Min): 151 [place]: Normal P-Wave: Absent QRS: Normal ST-T: Depressed (V3-V6) QT: Normal Comparison: Change From Previous EKG (11/15/19) EKG Interpretation Comments: Atrial Fibrillation with RVR with lateral depressions. No st elevation #2 Interpretation EKG Date: 12/25/20 Time: 05:26 Rhythm: A-Fib Rate (Beats/Min): 116 [place]: Normal P-Wave: Absent QRS: Normal ST-T: Normal QT: Normal Comparison: Change From Previous EKG (from today) EKG Interpretation Comments: Atrial Fibriillation with RVR without any ST depressions seen on prior EKG today
[2020-12-25 05:42] LABS: BLOOD UREA NITROGEN,BUN 22 mg/dL (7.0-18.0); CARBON DIOXIDE,CO2 27.9 mmol/L (21.0-32.0); CHLORIDE,CL 104 mmol/L (98-107); GLUCOSE RANDOM 122 mg/dL (74-106); POTASSIUM,K 3.9 mmol/L (3.5-5.1); SODIUM,NA 141 mmol/L (136-148)
[2020-12-25] MEDS ORDERED: Lactated Ringers 1,000 ML IV SCH (05:45)
[2020-12-25] MEDS ORDERED: Aspirin 81 MG Tab.Chew PO ONE (06:04)
--- NOTE | 2020-12-25 06:14 | EDM.PDOC ---
<Robbie Gambino - Last Filed: 12/25/20 06:46> ED HPI GENERAL MEDICAL PROBLEM - General Chief Complaint: Chest Pain Stated Complaint: SHORTNESS OF BREATH Time Seen by Provider: 12/25/20 05:16 - History of Present Illness INITIAL COMMENTS - FREE TEXT/NARRATIVE: CHIEF COMPLAINT(S): Palpitations HISTORY OF PRESENT ILLNESS: This is a 55-year-old man with a past medical history of hypertension and hyperlipidemia who comes to the emergency department with a chief complaint of palpitations. The patient states that upon awakening this morning he started to experience like his heart was racing. He states that when he does this he does get some shortness of breath but denies any chest pain. He states that this morning though the palpitations continued to happen and he could feel it in his ears. He states that he has had similar episodes in the past however they resolved after a few seconds. He denies any recent travel, recent surgery, prior history of DVT or PE. He denies any hyper or hypothyroidism. He denies any history of CAD or CHF. He states that he did get a left heart catheterization for recurrent chest pain last year and his catheterization was normal as stated by patient. He denies any diaphoresis, nausea or vomiting. He states that he did drink 5 beers last night and that he normally drinks 3 beers a day. He denies any illicit substance use. Denies any other symptoms REVIEW OF SYSTEMS: Constitutional: Denies fever, chills. Eyes: Denies eye pain Ears, Nose, Mouth, & Throat: Denies earache Cardiovascular: Positive for palpitations denies chest pain Respiratory: Positive for shortness of breath with palpitations gastrointestinal: Denies Nausea, vomiting, diarrhea, hematochezia. Genitourinary: Denies hematuria Skin:Denies a rash MSK: Denies joint pain Neurological: Denies blurred vision, numbness, tingling, weakness Psychiatric: Denies depression PAST MEDICAL HISTORY: As per history of present illness and as reviewed below otherwise noncontributory. SURGICAL HISTORY: As per history of present illness and as reviewed below otherwise noncontributory. SOCIAL HISTORY: As per history of present illness and as reviewed below otherwise noncontributory. FAMILY HISTORY: As per history of present illness and as reviewed below otherwise noncontributory. EXAMINATION OF ORGAN SYSTEMS/BODY AREAS: Constitutional: Blood pressure is 130/75, heart rate 144, respiratory rate 22 with an oxygen saturation of 98% on room air. Temperature 36.9 General: Middle-age gentleman who does not appear to be in acute distress Psychiatric: Mildly anxious appearing however cooperative Eyes: No scleral icterus or conjunctival erythema ENMT: Moist mucous membranes. No pharyngeal erythema Cardiovascular: Irregularly irregular rate and rhythm no gallops, murmurs, or rubs. Bilateral upper extremity pulses symmetric and intact. No peripheral edema. No JVD. Respiratory: Lungs clear to auscultation bilaterally. No wheezes, rales, or rhonchi. Gastrointestinal: Soft, non-tender, non-distended. Normoactive bowel sounds Genitourinary: No suprapubic tenderness Musculoskeletal: Normal range of motion. Skin: No lesions or abrasions. Neurological: Alert, GCS 15 MEDICAL DECISION MAKING AND COURSE IN THE ED WITH INTERPRETATION/REVIEW OF DIAGNOSTIC STUDIES: This is a 55-year-old and with a past medical history of hypertension hyperlipidemia who is noncompliant with medication who comes to the emergency department with acute onset palpitations approximately 15 minutes prior to arrival. We did place the patient on cardiac monitoring and pulse oximetry. environmental monitoring technician did reveal an irregularly rate likely atrial fibrillation pulse oximetry with good waveform was 98% on room air. At this time we did obtain an EKG which did reveal atrial fibrillation with RVR with some lateral ST depressions without any evidence of ST elevation. I do believe this is likely secondary to demand ischemia secondary to the tachycardia. We will provide the patient with 25 mg of IV Cardizem and reevaluate. After 25 mg of Cardizem the patient's heart rate was now less than 110 and patient reported improvement in his symptoms. We did obtain a repeat EKG which did reveal atrial fibrillation with no ST depressions as reviewed before. At this time I did discuss with patient I would like to obtain a cardiac work-up given the initial ST depressions and the new onset atrial fibrillation. He was amenable to this plan. The patient has a [id number] score of 1 which is mild to moderate. We will provide the patient with 324 mg of p.o. aspirin. After initial dose of diltiazem the patient's heart rate again increased into the 140s therefore we provide the patient with 20 mg of IV Cardizem and started a Cardizem drip. Laboratory: CBC is unremarkable. BMP reveals elevated BUN at 22, hyperglycemia at 122 and hypocalcemia at 8.3. Magnesium is 1.8. Troponin is negative. TSH was 2.80 The radiological images were viewed by myself along with reading the report from the radiologist. Chest x-ray does not reveal any acute cardiopulmonary process. After giving the additional diltiazem push and started on a diltiazem drip the patient's heart rate did improve to the mid 90s. environmental monitoring technician did reveal atrial fibrillation and pulse oximetry at this time with good waveform was still in the upper 90s. I did discuss with patient that given the initial ST de pressions on EKG would like to obtain a repeat troponin given the suggestions of ischemia. He was amenable to this plan. Patient's heart rate increased to the 120s to 130s on 5 mg of Cardizem. His blood pressure had decreased to the systolics of 98 with a MAP of 76. Given the decrease in his blood pressure at this time I will provide the patient with Cardizem by mouth in the hopes of weaning the patient off the Cardizem drip. DISPOSITION: [facility] pending repeat troponin and final disposition. The patient will likely need to be admitted secondary to IV diltiazem drip and new onset atrial fibrillation CONDITION: Serious PROCEDURES: Cardiac monitoring interpretation, pulse oximetry interpretation FINAL IMPRESSION(S)/DIAGNOSES: 1. Acute palpitations secondary to atrial fibrillation with rapid ventricular response 2. Acute new onset atrial fibrillation Critical Care Procedure Note Authorized and performed by: Robbie Gambino M.D. Critical Care Time: 71 minutes Due to a high probability of clinically significant, life threatening deterioration, the patient required my highest level of preparedness to intervene emergently and I personally spent this critical care time directly and personally managing the patient. This critical care time included obtaining a history, examining the patient, pulse oximetry; ordering and review of studies; arranging urgent treatment with development of a management plan; evaluation of a patients reponse to treatment; frequent assessment; and discussions with other providers. This critical care time was performed to assess and manage the high probability of imminent, life threatening deterioration that could result in multiorgan failure. It was exclusive of separate billable procedures and treating other patients. Please see MDM section and rest of the note for further information on patient assessment and treatment. Please see MDM section and rest of the note for further information on patient assessment and treatment. Robbie Gambino M.D. Middle Chest Pain Score (Numeric/FACES): 3 - Related Data Allergies Allergy/AdvReac Type Severity Reaction Status Date / Time Penicillins Allergy Unknown Cannot Verified 12/25/20 05:15 Remember Home Meds: Home Meds Enalapril [Vasotec] 1 tab PO DAILY 11/15/19 [History] buPROPion [Wellbutrin] 1 tab PO DAILY 11/15/19 [History] Past Medical History - Past Health History Medical/Surgical History: Denies Medical/Surgical History HEENT History: Reports: Other (See Below) Other HEENT History: wears glasses Cardiovascular History: Reports: None Respiratory History: Reports: Sleep Apnea Other Respiratory History: uses CPAP Gastrointestinal History: Reports: Colon Polyp, GERD, Other (See Below) Other Gastrointestinal History: cholecystitis, reflux in the past, none recently Genitourinary History: Reports: Renal Calculus, Other (See Below) Other Genitourinary History: "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 They checked up on it" Musculoskeletal History: Reports: Fracture Other Musculoskeletal History: hx fx left arm Neurological History: Reports: None Psychiatric History: Reports: Anxiety, Depression Other Psychiatric History: depression and anxiety in the past, none recently Endocrine/Metabolic History: Reports: Obesity/BMI 30+ Hematologic History: Reports: None Immunologic History: Reports: None Oncologic (Cancer) History: Reports: None Dermatologic History: Reports: None - Infectious Disease History Infectious Disease History: Reports: Chicken Pox - Past Surgical History Head Surgeries/Procedures: Reports: None HEENT Surgical History: Reports: None Cardiovascular Surgical History: Reports: None Respiratory Surgical History: Reports: None GI Surgical History: Reports: Cholecystectomy, Colonoscopy, EGD Male Surgical History: Reports: None Endocrine Surgical History: Reports: None Musculoskeletal Surgical History: Reports: Other (See Below) Other Musculoskeletal Surgeries/Procedures:: Right Foot surgery Social & Family History - Family History Family Medical History: No Pertinent Family History HEENT: Reports: None Cardiac: Reports: [place] Endocrine/Metabolic: Reports: Diabetes, type II - Caffeine Use Caffeine Use: Reports: Coffee - Recreational Drug Use Recreational Drug Use: No - Living Situation & Occupation Living situation: Reports: with Significant Other Occupation: Employed ED [facility] - Review of Systems Review Of Systems: See Below ED EXAM, GENERAL - Physical Exam Exam: See Below Departure - Departure Disposition: Admitted As Inpatient 67 Clinical Impression: Atrial fibrillation with rapid ventricular response, New onset atrial fibrillation - Discharge Information Referrals: Naresh Wright MD [Primary Care Provider] - Forms: ED Department Discharge Sepsis Event Note (ED) - Evaluation Sepsis Screening Result: No Definite Risk <AlbertinaMadhav - Last Filed: 12/25/20 11:11> Course - Vital Signs Text/Narrative:: 0700 patient is resting comfortably. I excepted the patient in transfer from my partner who his shift is ended. The plan is to admit him for management of his atrial fibrillation on a Cardizem drip now with rate intermittently better after 2 boluses. Second troponin will be drawn at 830. COVID-19 status will be ascertained. Patient will be admitted for management of atrial fib and further evaluation unless his troponin rises in which case he will be transferred. 9:46 AM the patient's troponin I is 0.058 which is technically slightly over normal range but probably insignificant. Discussed with Dr. Swenson and he said before he decided to admit here and take care of the atrial fed he wanted to see the patient evaluate the patient and make his own decision. 11:[address] Swenson saw the patient in the emergency room and most graciously agreed to admit the patient to the ICU for further monitoring and care. Due to a high probability of clinically significant, life threatening deterioration, the patient required my highest level of preparedness to intervene emergently and I personally spent this critical care time directly and personally managing the patient. This critical care time included obtaining a history; examining the patient; pulse oximetry; ordering and review of studies; arranging urgent treatment with development of a management plan; evaluation of patient's response to treatment; frequent reassessment; and, discussions with other providers. This critical care time was performed to assess and manage the high probability of imminent, life-threatening deterioration that could result in multi-organ failure. It was exclusive of separately billable procedures and treating other patients and teaching time. 40 minutes. Last Recorded V/S: Last Vital Signs Temp 36.8 C 12/25/20 08:00 Pulse 84 12/25/20 10:27 Resp 20 12/25/20 10:27 BP 117/71 12/25/20 10:27 Pulse Ox 98 12/25/20 10:27 - Orders/Labs/Meds Orders: Active Orders 24 hr Category Date Time Status Admission Status [Patient Status] [ADT] Stat ADT 12/25/20 11:09 Ordered EKG 12 Lead [EKG Documentation Completion] [RC] STAT Care 12/25/20 05:26 Active EKG Documentation Completion [RC] STAT Care 12/25/20 05:17 Active Diltiazem [Cardizem] 100 mg Med 12/25/20 06:15 Active Sodium Chloride 0.9% [Normal Saline] 100 ml IV NOW Lactated Ringers [Ringers, Lactated] 1,000 ml Med 12/25/20 05:45 Active IV ASDIRECTED Medication Orders Lactated Ringer's (Ringers, Lactated) 1,000 mls @ 999 mls/hr IV ASDIRECTED REINA Last Admin: 12/25/20 05:37 Dose: 999 mls/hr Documented by: MARYJANE Diltiazem HCl 100 mg/ Sodium (Chloride) 100 mls @ 5 mls/hr IV NOW REINA; Protocol Last Titration: 12/25/20 07:25 Dose: 10 mg/hr, 10 mls/hr Documented by: Admin: 12/25/20 06:14 Dose: 5 mg/hr, 5 mls/hr Documented by: MARYJANE Labs: Laboratory Tests 12/25/20 12/25/20 12/25/20 Range/Units 05:15 05:15 05:15 WBC 6.44 (4.0-11.0) K/uL RBC 4.95 (4.50-5.90) M/uL Hgb 14.5 (13.0-17.0) g/dL Hct 42.1 (38.0-50.0) % MCV 85.1 (80.0-98.0) fL MCH 29.3 (27.0-32.0) pg MCHC 34.4 (31.0-37.0) g/dL RDW Std Deviation 40.1 (28.0-62.0) fl RDW Coeff of Kenneth 13 (11.0-15.0) % Plt Count 175 (150-400) K/uL MPV 9.70 (7.40-12.00) fL Neut % (Auto) 55.9 (48.0-80.0) % Lymph % (Auto) 27.2 (16.0-40.0) % Anson % (Auto) 12.1 (0.0-15.0) % Eos % (Auto) 4.3 (0.0-7.0) % Baso % (Auto) 0.5 (0.0-1.5) % Neut # (Auto) 3.6 (1.4-5.7) K/uL Lymph # (Auto) 1.8 (0.6-2.4) K/uL Anson # (Auto) 0.8 (0.0-0.8) K/uL Eos # (Auto) 0.3 (0.0-0.7) K/uL Baso # (Auto) 0.0 (0.0-0.1) K/uL Nucleated RBC % 0.0 /100WBC Nucleated RBCs # 0 K/uL Sodium 141 (136-148) mmol/L Potassium 3.9 (3.5-5.1) mmol/L Chloride 104 (98-107) mmol/L Carbon Dioxide 27.9 (21.0-32.0) mmol/L BUN 22 H (7.0-18.0) mg/dL Creatinine 1.2 (0.8-1.3) mg/dL Est Cr Clr Drug Dosing 79.53 mL/min Estimated GFR (MDRD) > 60.0 ml/min Glucose 122 H (74-106) mg/dL Calcium 8.3 L (8.5-10.1) mg/dL Magnesium 1.8 (1.8-2.4) mg/dL Troponin I < 0.050 (0.000-0.056) ng/mL TSH 3rd Generation 2.80 (0.36-3.74) uIU/mL SARS-CoV-2 RNA (SYLVIA) (NEGATIVE) 12/25/20 12/25/20 Range/Units 07:16 08:34 WBC (4.0-11.0) K/uL RBC (4.50-5.90) M/uL Hgb (13.0-17.0) g/dL Hct (38.0-50.0) % MCV (80.0-98.0) fL MCH (27.0-32.0) pg MCHC (31.0-37.0) g/dL RDW Std Deviation (28.0-62.0) fl RDW Coeff of Kenneth (11.0-15.0) % Plt Count (150-400) K/uL MPV (7.40-12.00) fL Neut % (Auto) (48.0-80.0) % Lymph % (Auto) (16.0-40.0) % Anson % (Auto) (0.0-15.0) % Eos % (Auto) (0.0-7.0) % Baso % (Auto) (0.0-1.5) % Neut # (Auto) (1.4-5.7) K/uL Lymph # (Auto) (0.6-2.4) K/uL Anson # (Auto) (0.0-0.8) K/uL Eos # (Auto) (0.0-0.7) K/uL Baso # (Auto) (0.0-0.1) K/uL Nucleated RBC % /100WBC Nucleated RBCs # K/uL Sodium (136-148) mmol/L Potassium (3.5-5.1) mmol/L Chloride (98-107) mmol/L Carbon Dioxide (21.0-32.0) mmol/L BUN (7.0-18.0) mg/dL Creatinine (0.8-1.3) mg/dL Est Cr Clr Drug Dosing mL/min Estimated GFR (MDRD) ml/min Glucose (74-106) mg/dL Calcium (8.5-10.1) mg/dL Magnesium (1.8-2.4) mg/dL Troponin I 0.058 H* (0.000-0.056) ng/mL TSH 3rd Generation (0.36-3.74) uIU/mL SARS-CoV-2 RNA (SYLVIA) NEGATIVE (NEGATIVE) Meds: Medications Generic Name Dose Route Start Last Admin Trade Name Freq PRN Reason Stop Dose Admin Lactated Ringer's 1,000 mls @ 999 mls/hr 12/25/20 05:45 12/25/20 05:37 Ringers, Lactated IV 999 mls/hr ASDIRECTED REINA Administration Diltiazem HCl 100 mg/ Sodium 100 mls @ 5 mls/hr 12/25/20 06:15 12/25/20 07:25 Chloride IV 10 mg/hr NOW REINA 10 mls/hr Titration Protocol 5 MG/HR Discontinued Medications Generic Name Dose Route Start Last Admin Trade Name Magda PRN Reason Stop Dose Admin Aspirin 324 mg 12/25/20 06:04 12/25/20 06:10 Aspirin 81 Mg Tab.Chew PO 12/25/20 06:05 324 mg ONETIME ONE Administration Diltiazem HCl 25 mg 12/25/20 05:18 12/25/20 05:27 Diltiazem 25 Mg/5 Ml Sdv IVPUSH 12/25/20 05:19 25 mg ONETIME ONE Administration Diltiazem HCl 20 mg 12/25/20 06:05 12/25/20 06:12 Diltiazem 25 Mg/5 Ml Sdv IVPUSH 12/25/20 06:06 20 mg ONETIME ONE Administration Diltiazem HCl 120 mg 12/25/20 06:45 12/25/20 06:58 Diltiazem 120 Mg Cap.Cd PO 12/25/20 06:46 120 mg ONETIME ONE Administration Departure - Departure Time of Disposition: 11:10 Condition: Good Sepsis Event Note (ED) - Focused Exam Vital Signs: Vital Signs Temp Pulse Pulse Resp BP BP Pulse Ox 12/25/20 10:27 84 20 117/71 98 12/25/20 10:02 88 18 111/72 98 12/25/20 09:32 86 18 100/77 99 12/25/20 09:00 84 18 108/72 99 12/25/20 08:30 90 18 104/58 L 97 12/25/20 08:00 36.8 C 90 18 101/58 L 99 12/25/20 07:24 121 H 18 103/76 99 12/25/20 06:58 101 H 99/69 12/25/20 06:38 100 17 95/59 L 97 12/25/20 06:08 125 H 17 104/65 97 12/25/20 05:33 108 H 20 112/64 95 12/25/20 05:26 98 18 104/57 L 98 12/25/20 05:15 36.9 C 144 H 22 H 130/75 - My Orders Last 24 Hours: My Active Orders 12/25/20 11:09 Admission Status [Patient Status] [ADT] Stat - Assessment/Plan Last 24 Hours: My Active Orders 12/25/20 11:09 Admission Status [Patient Status] [ADT] Stat
[2020-12-25] MEDS ORDERED: Diltiazem 100 MG in Sodium Chloride 0.9% 100 ML IV SCH (06:15)
--- NOTE | 2020-12-25 06:15 | CR ---
Indication: Palpitations Technique: Chest 1 view Comparison: Chest x-ray 11/15/2019 Findings/Impression: Cardiovascular and mediastinum: Heart size and vasculature are normal in caliber and appearance. Lungs and pleural space: Lungs are clear. No sign of infiltrate or mass. No sign of pleural effusion. No pneumothorax. Bones and soft tissues: No acute findings. Dictated by Gonzalo Collins MD @ 12/25/2020 6:13:[address] Gonzalo Collins @ Dec 25 2020 6:13AM
[2020-12-25] MEDS ORDERED: Diltiazem 120 MG Cap.CD PO ONE (06:45)
[2020-12-25] MEDS ORDERED: Magnesium Sulfate/Water 2 GM/50 ML Premix Bag IV ONE (13:05)
[2020-12-25] MEDS ORDERED: LORazepam 2 MG/ML SDV IVPUSH PRN (13:09)
[2020-12-25] MEDS ORDERED: Metoprolol Tartrate 25 MG Tab PO SCH (13:15)
[2020-12-25] MEDS ORDERED: Magnesium Sulfate/Water 2 GM/50 ML BAG IV ONE (13:15)
--- NOTE | 2020-12-25 13:16 | PCM.HP.2 ---
H&P History of Present Illness - General Date of Service: 12/25/20 Admit Problem/Dx: Admission Diagnosis/Problem Admission Diagnosis/Problem Atrial fibrillation with rapid ventricular response - History of Present Illness Initial Comments - Free Text/Narative: 55 yo male with pmh of hypertension and anxiety disorder who woke up this morning with complaints of heart palpitations. Patient reported shortness of breath but no chest pain. Patient reported it felt like a panic attack. In the ED he was noted to be in atrial fibrillation with RVR with HR in the 140s. He was give dilitzem pushes x2 and then started on a diltiaem drip. His heart rate is now in the 70s and he feels much better. He reports he has weened himself of clonazepam. He had a negative nuclear stess test in 06/28/[address] CT in October 2019 did not show any significant blockages. [place] and had a six pack of beer. He reports drinking 1-2 beers a day. HE did receive a liter of IV fluids in the ER. Middle Chest Pain Score (Numeric/FACES): 3 - Related Data Allergies/Adverse Reactions: Allergies Allergy/AdvReac Type Severity Reaction Status Date / Time Penicillins Allergy Unknown Cannot Verified 12/26/20 10:24 Remember Home Medications: Home Meds Enalapril [Vasotec] 1 tab PO DAILY 11/15/19 [History] LORazepam [Lorazepam] 0.5 mg PO TID PRN 12/25/20 [History] atorvaSTATin [Lipitor] 40 mg PO BEDTIME 12/25/20 [History] Apixaban [Eliquis] 5 mg PO BID #60 tablet 12/26/20 [Rx] Diltiazem [Cardizem CD] 120 mg PO DAILY #30 cap.cd 12/26/20 [Rx] Past Medical History - Past Health History Medical/Surgical History: Denies Medical/Surgical History HEENT History: Reports: Other (See Below) Other HEENT History: wears glasses Cardiovascular History: Reports: None Respiratory History: Reports: Sleep Apnea Other Respiratory History: uses CPAP Gastrointestinal History: Reports: Colon Polyp, GERD, Other (See Below) Other Gastrointestinal History: cholecystitis, reflux in the past, none recently Genitourinary History: Reports: Renal Calculus, Other (See Below) Other Genitourinary History: "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 They checked up on it" Musculoskeletal History: Reports: Fracture Other Musculoskeletal History: hx fx left arm Neurological History: Reports: None Psychiatric History: Reports: Anxiety, Depression Other Psychiatric History: depression and anxiety in the past, none recently Endocrine/Metabolic History: Reports: Obesity/BMI 30+ Hematologic History: Reports: None Immunologic History: Reports: None Oncologic (Cancer) History: Reports: None Dermatologic History: Reports: None - Infectious Disease History Infectious Disease History: Reports: Chicken Pox - Past Surgical History Head Surgeries/Procedures: Reports: None HEENT Surgical History: Reports: None Cardiovascular Surgical History: Reports: None Respiratory Surgical History: Reports: None GI Surgical History: Reports: Cholecystectomy, Colonoscopy, EGD Male Surgical History: Reports: None Endocrine Surgical History: Reports: None Musculoskeletal Surgical History: Reports: Other (See Below) Other Musculoskeletal Surgeries/Procedures:: Right Foot surgery Social & Family History - Family History Family Medical History: No Pertinent Family History HEENT: Reports: None Cardiac: Reports: MD Endocrine/Metabolic: Reports: Diabetes, type II - Caffeine Use Caffeine Use: Reports: Coffee - Recreational Drug Use Recreational Drug Use: No - Living Situation & Occupation Living situation: Reports: with Significant Other Occupation: Employed H&P Review of Systems - Review of Systems: Review Of Systems: Comprehensive ROS is negative, except as noted in HPI. Exam - Exam Exam: See Below - Vital Signs Vital Signs: Last Vital Signs Temp 36.8 C 12/25/20 11:48 Pulse 74 12/25/20 12:11 Resp 18 12/25/20 12:11 BP 103/72 12/25/20 12:11 Pulse Ox 97 12/25/20 12:11 Weight: 124.738 kg - Exam General: Alert, Oriented HEENT: Mucosa Moist & Spur Neck: Supple Lungs: Clear to Auscultation, Normal Respiratory Effort Cardiovascular: Regular Rate, Irregular Rhythm GI/Abdominal Exam: Soft, No Distention Extremities: Non-Tender, No Pedal Edema Skin: Warm, Dry, Intact Neurological: No: Focal Deficit - Patient Data Lab Results Last 24 hrs: Laboratory Results - last 24 hr 12/25/20 12/25/20 12/25/20 Range/Units 05:15 05:15 05:15 WBC 6.44 (4.0-11.0) K/uL RBC 4.95 (4.50-5.90) M/uL Hgb 14.5 (13.0-17.0) g/dL Hct 42.1 (38.0-50.0) % MCV 85.1 (80.0-98.0) fL MCH 29.3 (27.0-32.0) pg MCHC 34.4 (31.0-37.0) g/dL RDW Std Deviation 40.1 (28.0-62.0) fl RDW Coeff of Kenneth 13 (11.0-15.0) % Plt Count 175 (150-400) K/uL MPV 9.70 (7.40-12.00) fL Neut % (Auto) 55.9 (48.0-80.0) % Lymph % (Auto) 27.2 (16.0-40.0) % [place] % (Auto) 12.1 (0.0-15.0) % Eos % (Auto) 4.3 (0.0-7.0) % Baso % (Auto) 0.5 (0.0-1.5) % Neut # (Auto) 3.6 (1.4-5.7) K/uL Lymph # (Auto) 1.8 (0.6-2.4) K/uL [place] # (Auto) 0.8 (0.0-0.8) K/uL Eos # (Auto) 0.3 (0.0-0.7) K/uL Baso # (Auto) 0.0 (0.0-0.1) K/uL Nucleated RBC % 0.0 /100WBC Nucleated RBCs # 0 K/uL Sodium 141 (136-148) mmol/L Potassium 3.9 (3.5-5.1) mmol/L Chloride 104 (98-107) mmol/L Carbon Dioxide 27.9 (21.0-32.0) mmol/L BUN 22 H (7.0-18.0) mg/dL Creatinine 1.2 (0.8-1.3) mg/dL Est Cr Clr Drug Dosing 79.53 mL/min Estimated GFR (MDRD) > 60.0 ml/min Glucose 122 H (74-106) mg/dL Calcium 8.3 L (8.5-10.1) mg/dL Magnesium 1.8 (1.8-2.4) mg/dL Troponin I < 0.050 (0.000-0.056) ng/mL TSH 3rd Generation 2.80 (0.36-3.74) uIU/mL SARS-CoV-2 RNA (SYLVIA) (NEGATIVE) 12/25/20 12/25/20 Range/Units 07:16 08:34 WBC (4.0-11.0) K/uL RBC (4.50-5.90) M/uL Hgb (13.0-17.0) g/dL Hct (38.0-50.0) % MCV (80.0-98.0) fL MCH (27.0-32.0) pg MCHC (31.0-37.0) g/dL RDW Std Deviation (28.0-62.0) fl RDW Coeff of Kenneth (11.0-15.0) % Plt Count (150-400) K/uL MPV (7.40-12.00) fL Neut % (Auto) (48.0-80.0) % Lymph % (Auto) (16.0-40.0) % [place] % (Auto) (0.0-15.0) % Eos % (Auto) (0.0-7.0) % Baso % (Auto) (0.0-1.5) % Neut # (Auto) (1.4-5.7) K/uL Lymph # (Auto) (0.6-2.4) K/uL [place] # (Auto) (0.0-0.8) K/uL Eos # (Auto) (0.0-0.7) K/uL Baso # (Auto) (0.0-0.1) K/uL Nucleated RBC % /100WBC Nucleated RBCs # K/uL Sodium (136-148) mmol/L Potassium (3.5-5.1) mmol/L Chloride (98-107) mmol/L Carbon Dioxide (21.0-32.0) mmol/L BUN (7.0-18.0) mg/dL Creatinine (0.8-1.3) mg/dL Est Cr Clr Drug Dosing mL/min Estimated GFR (MDRD) ml/min Glucose (74-106) mg/dL Calcium (8.5-10.1) mg/dL Magnesium (1.8-2.4) mg/dL Troponin I 0.058 H* (0.000-0.056) ng/mL TSH 3rd Generation (0.36-3.74) uIU/mL SARS-CoV-2 RNA (SYLVIA) NEGATIVE (NEGATIVE) Result Diagrams: 12/26/20 05:53 12/26/20 05:53 Sepsis Event Note - Evaluation Sepsis Screening Result: No Definite Risk - Focused Exam Vital Signs: Vital Signs Temp Pulse Pulse Resp BP BP Pulse Ox 12/25/20 12:11 74 18 103/72 97 12/25/20 11:48 36.8 C 64 18 102/75 98 12/25/20 11:10 74 18 102/75 97 12/25/20 10:27 84 20 117/71 98 12/25/20 10:02 88 18 111/72 98 12/25/20 09:32 86 18 100/77 99 12/25/20 09:00 84 18 108/72 99 12/25/20 08:30 90 18 104/58 L 97 12/25/20 08:00 36.8 C 90 18 101/58 L 99 12/25/20 07:24 121 H 18 103/76 99 12/25/20 06:58 101 H 99/69 12/25/20 06:38 100 17 95/59 L 97 12/25/20 06:08 125 H 17 104/65 97 12/25/20 05:33 108 H 20 112/64 95 12/25/20 05:26 98 18 104/57 L 98 12/25/20 05:15 36.9 C 144 H 22 H 130/75 Problem List Initiated/Reviewed/Updated: Yes Orders Last 24hrs: Active Orders 24 hr Category Date Time Status Admission Status [Patient Status] [ADT] Stat ADT 12/25/20 11:09 Active EKG 12 Lead [EKG Documentation Completion] [RC] STAT Care 12/25/20 05:26 Active EKG Documentation Completion [RC] STAT Care 12/25/20 05:17 Active TROPONIN I [CHEM] Q6H Lab 12/25/20 13:05 Ordered TROPONIN I [CHEM] Q6H Lab 12/25/20 19:05 Ordered TROPONIN I [CHEM] Q6H Lab 12/26/20 01:05 Ordered Diltiazem [Cardizem] 100 mg Med 12/25/20 06:15 Active Sodium Chloride 0.9% [Normal Saline] 100 ml IV NOW Enoxaparin [Lovenox] Med 12/25/20 13:15 Ordered 125 mg SUBCUT Q12H Folic Acid Med 12/25/20 13:15 Ordered 1 mg PO DAILY LORazepam [Ativan] Med 12/25/20 13:09 Ordered See Protocol IVPUSH Q4H PRN Lactated Ringers [Ringers, Lactated] 1,000 ml Med 12/25/20 05:45 Active IV ASDIRECTED Magnesium Sulfate/Water [Magnesium Sulfate in Water 2 Med 12/25/20 13:05 Once GM/50 ML] 2 gm IV ONETIME ONE Metoprolol Tartrate [Lopressor] Med 12/25/20 13:15 Ordered 25 mg PO Q12H Thiamine [Vitamin B-1] Med 12/25/20 13:15 Ordered 100 mg PO DAILY Medication Orders Enoxaparin Sodium (Enoxaparin 150 Mg/1 Ml Syringe) 125 mg SUBCUT Q12H REINA Folic Acid (Folic Acid 1 Mg Tab) 1 mg PO DAILY REINA Lactated Ringer's (Ringers, Lactated) 1,000 mls @ 999 mls/hr IV ASDIRECTED [facility] Last Admin: 12/25/20 05:37 Dose: 999 mls/hr Documented by: MARYJANE Diltiazem HCl 100 mg/ Sodium (Chloride) 100 mls @ 5 mls/hr IV NOW [facility]; Protocol Last Titration: 12/25/20 11:53 Dose: 5 mg/hr, 5 mls/hr Documented by: Titration: 12/25/20 07:25 Dose: 10 mg/hr, 10 mls/hr Documented by: Admin: 12/25/20 06:14 Dose: 5 mg/hr, 5 mls/hr Documented by: MARYJANE Magnesium Sulfate (Magnesium Sulfate/Water 2 Gm/50 Ml Premix Bag) 2 gm IV ONETIME ONE Stop: 12/25/20 13:06 Metoprolol Tartrate (Metoprolol Tartrate 25 Mg Tab) 25 mg PO Q12H REINA Thiamine HCl (Thiamine 100 Mg Tab) 100 mg PO DAILY [facility] Assessment/Plan Comment:: 55 yo male admitted for atrial fibrillation with RVR Atrial fibrillation with RVR: was given PO Cardizem, will wean diltiazem drip when appropriate, will start Lovenox for now, will hold po inhibitor
[2020-12-25] MEDS ORDERED: Sodium Chloride 0.9% 1,000 ML IV SCH (13:30)
[2020-12-25] MEDS: Folic Acid 1 MG Tab PO SCH (14:36)
[2020-12-25] MEDS: Thiamine 100 MG Tab PO SCH (14:36)
[2020-12-25] MEDS: Enoxaparin 150 MG/1 ML Syringe SUBCUT SCH (14:36)
--- NOTE | 2020-12-25 18:54 | PN ---
THC Physician - Brief Progress [id number]/14/2021 18:41[facility] [place], [place] - [place] ([place]) - EBONY HAL FERGUSONDate of Service 12/25/2020 18:41HPI/Events o f Note eICU admission [id number] male with past history significant for anxiety and HTN presente d to hospital with A. fib with RVR. Patient mentioned he developed acute onset of heart palpitations with shortness of breath which felt like a panic attack thus presented to the ED for further evaluat ion. On arrival to the ED patient was noted to be tachycardic in the 140s with otherwise stable jesse ls. In the ED patient received IV fluids along with Cardizem gtt. with improvement in heart rate and admitted to the ICU for further management. Of note, patient did mention of drinking approximately 1-2 beers daily.Patient seen on camera, sitting up in chair, watching TV and appears to be very comfo rtable at this timeVital signs reviewed. HR 75, BP 115/78Labs/EMR reviewedA. fib with RVR-Troponin d own trended which was likely elevated due to supply demand. -Agree with continuing Cardizem gtt. and initiating p.o. AV nimesh eduardo to help wean off drip.-Anticoagulation per primary team depending on [id number] from history obtained-Recommend replacing electrolytes to keep MG > 2 and K > 4-Given n ew onset A. fib will also need 2D echo.Etoh withdrawal-Agree with CIWA protocol with PRN ativan -If p atient has high requirement of Benzo's can consider adding on Precedex to help decrease requirement.- Agree with Thiamine and folate-Recommend replacement of Mg >2 and K > 4 to prevent any arrhythmias. - Agree with IVFxs Thank you for allowing us to participate in the care of this patient. Please do not hesitate to contact eICU for any questions, clarification or assistance with implementation of above. Interventions Major-Arrhythmia - evaluation and management
[2020-12-26] MEDS: Enoxaparin 150 MG/1 ML Syringe SUBCUT SCH (01:15)
[2020-12-26 06:23] LABS: BLOOD UREA NITROGEN,BUN 16 mg/dL (7.0-18.0); CARBON DIOXIDE,CO2 27.3 mmol/L (21.0-32.0); CHLORIDE,CL 106 mmol/L (98-107); GLUCOSE RANDOM 114 mg/dL (74-106); POTASSIUM,K 4.4 mmol/L (3.5-5.1); SODIUM,NA 140 mmol/L (136-148)
[2020-12-26] MEDS: Folic Acid 1 MG Tab PO SCH (08:15)
[2020-12-26] MEDS: Thiamine 100 MG Tab PO SCH (08:15)
[2020-12-26 08:16] VITALS: PULSE 89
[2020-12-26] MEDS ORDERED: Diltiazem 120 MG Cap.CD PO SCH (09:00)
[2020-12-26 09:28] VITALS: BP 148/88
[2020-12-26] MEDS ORDERED: Apixaban 5 MG Tab PO SCH (12:00)
--- NOTE | 2020-12-26 12:00 | PCM.DCSUM1 ---
Discharge Summary - Discharge Data Discharge Date: 12/26/20 Discharge Disposition: Home, Self-Care 01 Condition: Stable - Referral to Home Health Primary Care Physician: Naresh Wright MD - Patient Summary/Data Hospital Course: 55 yo male with pmh of hypertension, obstructive sleep apnea, and anxiety disorder who woke with complaints of heart palpitations. Patient reported shortness of breath but no chest pain. Patient reported it felt like a panic attack. In the ED he was noted to be in atrial fibrillation with RVR with HR in the 140s. He was give dilitzem pushes x2 and then started on a diltiazem drip. His heart rate improve and symptoms resolved.. He did receive a liter of IV fluids in the ER and oral Cardizem. CXR was normal and echocardiogram reported EF of 60-65%. He was transferred to the ICU and weaned off diltiazem drip. He was monitored overnight with HR in the 80s-110s. This morning patient is requesting discharge home. He plans to reduce ETOH intake. He will be discharged on 120mg of Cardizem daily and Eliquis 5mg BID. Patient is to follow up with Dr. Wright. - Patient Instructions Diet: Usual Diet as Tolerated Activity: As Tolerated Other/Special Instructions: Notify provider if having palpitations, chest pain, or shortness of breath - Discharge Plan Prescriptions/Med Rec: Diltiazem [Cardizem CD] 120 mg PO DAILY #30 cap.cd Apixaban [Eliquis] 5 mg PO BID #60 tablet Home Medications: Home Meds Enalapril [Vasotec] 1 tab PO DAILY 11/15/19 [History] LORazepam [Lorazepam] 0.5 mg PO TID PRN 12/25/20 [History] atorvaSTATin [Lipitor] 40 mg PO BEDTIME 12/25/20 [History] Apixaban [Eliquis] 5 mg PO BID #60 tablet 12/26/20 [Rx] Diltiazem [Cardizem CD] 120 mg PO DAILY #30 cap.cd 12/26/20 [Rx] Oxygen Therapy Mode: Room Air Patient Handouts: Sleep Apnea, Diltiazem Oral Tablets, Apixaban oral tablets, Atrial Fibrillation Referrals: Naresh Wright MD [Primary Care Provider] - 01/02/21 10:30 am - Discharge Summary/Plan Comment DC Time >30 min.: No - Patient Data Vitals - Most Recent: Last Vital Signs Temp 35.9 C L 12/26/20 08:00 Pulse 89 12/26/20 08:16 Resp 18 12/26/20 09:00 BP 148/88 H 12/26/20 09:00 Pulse Ox 95 12/26/20 09:00 Weight - Most Recent: 116.709 kg I&O - Last 24 hours: Intake & Output 12/25/20 12/26/20 12/26/20 22:59 06:59 14:59 Intake Total 1750 550 Output Total 0 1200 400 Balance 1750 -650 -400 Lab Results - Last 24 hrs: Laboratory Results - last 24 hr 12/25/20 12/25/20 12/26/20 Range/Units 13:50 13:50 05:53 WBC 5.57 (4.0-11.0) K/uL RBC 4.82 (4.50-5.90) M/uL Hgb 13.7 (13.0-17.0) g/dL Hct 41.0 (38.0-50.0) % MCV 85.1 (80.0-98.0) fL MCH 28.4 (27.0-32.0) pg MCHC 33.4 (31.0-37.0) g/dL RDW Std Deviation 40.7 (28.0-62.0) fl RDW Coeff of Kenneth 13 (11.0-15.0) % Plt Count 151 (150-400) K/uL MPV 9.90 (7.40-12.00) fL Neut % (Auto) 64.1 (48.0-80.0) % Lymph % (Auto) 21.2 (16.0-40.0) % [place] % (Auto) 9.0 (0.0-15.0) % Eos % (Auto) 5.0 (0.0-7.0) % Baso % (Auto) 0.7 (0.0-1.5) % Neut # (Auto) 3.6 (1.4-5.7) K/uL Lymph # (Auto) 1.2 (0.6-2.4) K/uL [place] # (Auto) 0.5 (0.0-0.8) K/uL Eos # (Auto) 0.3 (0.0-0.7) K/uL Baso # (Auto) 0.0 (0.0-0.1) K/uL Nucleated RBC % 0.0 /100WBC Nucleated RBCs # 0 K/uL D-Dimer, Quantitative 0.31 (0.0-0.50) mg/L FEU Sodium (136-148) mmol/L Potassium (3.5-5.1) mmol/L Chloride (98-107) mmol/L Carbon Dioxide (21.0-32.0) mmol/L BUN (7.0-18.0) mg/dL Creatinine (0.8-1.3) mg/dL Est Cr Clr Drug Dosing mL/min Estimated GFR (MDRD) ml/min Glucose (74-106) mg/dL Calcium (8.5-10.1) mg/dL Magnesium (1.8-2.4) mg/dL Troponin I 0.052 (0.000-0.056) ng/mL 12/26/20 Range/Units 05:53 WBC (4.0-11.0) K/uL RBC (4.50-5.90) M/uL Hgb (13.0-17.0) g/dL Hct (38.0-50.0) % MCV (80.0-98.0) fL MCH (27.0-32.0) pg MCHC (31.0-37.0) g/dL RDW Std Deviation (28.0-62.0) fl RDW Coeff of Kenneth (11.0-15.0) % Plt Count (150-400) K/uL MPV (7.40-12.00) fL Neut % (Auto) (48.0-80.0) % Lymph % (Auto) (16.0-40.0) % [place] % (Auto) (0.0-15.0) % Eos % (Auto) (0.0-7.0) % Baso % (Auto) (0.0-1.5) % Neut # (Auto) (1.4-5.7) K/uL Lymph # (Auto) (0.6-2.4) K/uL [place] # (Auto) (0.0-0.8) K/uL Eos # (Auto) (0.0-0.7) K/uL Baso # (Auto) (0.0-0.1) K/uL Nucleated RBC % /100WBC Nucleated RBCs # K/uL D-Dimer, Quantitative (0.0-0.50) mg/L FEU Sodium 140 (136-148) mmol/L Potassium 4.4 (3.5-5.1) mmol/L Chloride 106 (98-107) mmol/L Carbon Dioxide 27.3 (21.0-32.0) mmol/L BUN 16 (7.0-18.0) mg/dL Creatinine 1.0 (0.8-1.3) mg/dL Est Cr Clr Drug Dosing 94.98 mL/min Estimated GFR (MDRD) > 60.0 ml/min Glucose 114 H (74-106) mg/dL Calcium 8.2 L (8.5-10.1) mg/dL Magnesium 1.9 (1.8-2.4) mg/dL Troponin I (0.000-0.056) ng/mL Med Orders - Current: Current Medications Apixaban (Apixaban 5 Mg Tab) 5 mg PO BID [facility] Last Admin: 12/26/20 11:20 Dose: 5 mg Documented by: Diltiazem HCl (Diltiazem 120 Mg Cap.Cd) 120 mg PO DAILY [facility] Last Admin: 12/26/20 08:16 Dose: 120 mg Documented by: Folic Acid (Folic Acid 1 Mg Tab) 1 mg PO DAILY [facility] Last Admin: 12/26/20 08:15 Dose: 1 mg Documented by: Lactated Ringer's (Ringers, Lactated) 1,000 mls @ 999 mls/hr IV ASDIRECTED [facility] Last Admin: 12/25/20 05:37 Dose: 999 mls/hr Documented by: Diltiazem HCl 100 mg/ Sodium (Chloride) 100 mls @ 5 mls/hr IV NOW [facility]; Protocol Last Titration: 12/25/20 14:19 Dose: 0 mg/hr, 0 mls/hr Documented by: Lorazepam (Lorazepam 2 Mg/Ml Sdv) 0 mg IVPUSH Q4H PRN; Protocol PRN Reason: CIWA Thiamine HCl (Thiamine 100 Mg Tab) 100 mg PO DAILY [facility] Last Admin: 12/26/20 08:15 Dose: 100 mg Documented by: Discontinued Medications Aspirin (Aspirin 81 Mg Tab.Chew) 324 mg PO ONETIME ONE Stop: 12/25/20 06:05 Last Admin: 12/25/20 06:10 Dose: 324 mg Documented by: Diltiazem HCl (Diltiazem 25 Mg/5 Ml Sdv) 25 mg IVPUSH ONETIME ONE Stop: 12/25/20 05:19 Last Admin: 12/25/20 05:27 Dose: 25 mg Documented by: Diltiazem HCl (Diltiazem 25 Mg/5 Ml Sdv) 20 mg IVPUSH ONETIME ONE Stop: 12/25/20 06:06 Last Admin: 12/25/20 06:12 Dose: 20 mg Documented by: Diltiazem HCl (Diltiazem 120 Mg Cap.Cd) 120 mg PO ONETIME ONE Stop: 12/25/20 06:46 Last Admin: 12/25/20 06:58 Dose: 120 mg Documented by: Enoxaparin Sodium (Enoxaparin 150 Mg/1 Ml Syringe) 125 mg SUBCUT Q12H [facility] Last Admin: 12/26/20 01:15 Dose: 125 mg Documented by: Magnesium Sulfate (Magnesium Sulfate In Water 2 Gm/50 Ml) 2 gm in 50 mls @ 25 mls/hr IV ONETIME ONE Stop: 12/25/20 15:14 Last Admin: 12/25/20 14:38 Dose: 25 mls/hr Documented by: Sodium Chloride (Normal Saline) 1,000 mls @ 125 mls/hr IV ASDIRECTED [facility] Stop: 12/25/20 21:29 Last Admin: 12/25/20 14:35 Dose: 125 mls/hr Documented by: Metoprolol Tartrate (Metoprolol Tartrate 25 Mg Tab) 25 mg PO Q12H [facility] Last Admin: 12/25/20 14:36 Dose: Not Given Documented by:
== END 2020-12-26 13:05 | disposition home or self-care (01) | DRG 309 ==
LOC: MW.ED 05:03 → MW.ICU 11:09
PROVIDERS: ADMIT Internal Medicine; ATTEND Internal Medicine
DX: I48.91 Unspecified atrial fibrillation (principal); F10.239 Alcohol dependence with withdrawal, unspecified; G47.30 Sleep apnea, unspecified; K21.9 Gastro-esophageal reflux disease without esophagitis; F41.9 Anxiety disorder, unspecified; F32.9 Major depressive disorder, single episode, unspecified; E66.9 Obesity, unspecified; R77.8 Other specified abnormalities of plasma proteins; Z20.822 Contact with and (suspected) exposure to COVID-19; Z88.0 Allergy status to penicillin; Z90.49 Acquired absence of other specified parts of digestive tract; Z79.899 Other long term (current) drug therapy; Z68.34 Body mass index [BMI] 34.0-34.9, adult
CPT/HCPCS: 36415; 71045; 71045-26; 80048; 83735; 84443; 84484; 85025; 85379; 93005; 93306; A9270-GY; J1650; J3475; J3490; J7030; J7120; U0002

== ENCOUNTER 2021-03-07 12:54 | Emergency (ER) | payer OTHER ==
--- NOTE | 2021-03-07 13:15 | EDM.PDOC ---
ED HPI GENERAL MEDICAL PROBLEM - General Chief Complaint: Chest Pain Stated Complaint: ARM AND CHEST PAIN Time Seen by Provider: 03/07/21 13:12 - History of Present Illness INITIAL COMMENTS - FREE TEXT/NARRATIVE: History of present illness: [] The patient had brief chest pain and left arm pain that is better now. It started that 1300 hrs. He had calcific plaque on his catheterization done recently when he was sent to [place]. He has recurrent and intermittent atrial fibrillation EKG since the most recent visit. The patient felt like when he had this pain that he got excited worried more than anything else and is worried that he might of had a heart problem or might have overreacted. He came to make sure that this was not a mild heart attack or significant angina. Review of systems: As per history of present illness and below otherwise all systems reviewed and negative. Past medical history: As per history of present illness and as reviewed below otherwise noncontributory. Surgical history: As per history of present illness and as reviewed below otherwise noncontributory. Social history: No reported history of drug or alcohol abuse. Family history: As per history of present illness and as reviewed below otherwise noncontributory. Physical exam: Constitutional - well developed, well-nourished and in no acute distress HEENT - normocephalic, no evidence of trauma - external nose and mouth normal - no mass in neck and no JVD - mucosae moist EYES - full EOM, PERRL, no icterus - no evidence of inflammation, injection, or drainage Respiratory - no respiratory distress, equal bilateral expansion, lungs clear to auscultation and no abnormal lung sounds Cardiovascular - Regular Rhythm with S1 and S2 appreciated and no murmur, gallop or rub. GI - abdomen soft without distension or organomegaly - normal bowel sounds - no guard or rebound Musculoskeletal no gross deformity of long bones or joints - no tenderness, swelling or edema Neurologic - Alert and oriented times four - CN II-XII grossly intact - motor sensory and coordination symmetrically normal Psychiatric - appropriate mood and affect with normal thought content Hematologic - No petechiae or purpura - mucosa appropriate color and sclera not pale - normal nail bed color and refill Integument - no rash or evidence of trauma - normal turgor Diagnostics: [] Therapeutics: [] Impression: [] Plan: [] Definitive disposition and diagnosis as appropriate pending reevaluation and review of above. left arm Pain Score (Numeric/FACES): 4 - Related Data Allergies Allergy/AdvReac Type Severity Reaction Status Date / Time Penicillins Allergy Unknown Cannot Verified 12/26/20 10:24 Remember Home Meds: Home Meds Enalapril [Vasotec] 1 tab PO DAILY 11/15/19 [History] LORazepam [Lorazepam] 0.5 mg PO TID PRN 12/25/20 [History] atorvaSTATin [Lipitor] 40 mg PO BEDTIME 12/25/20 [History] Apixaban [Eliquis] 5 mg PO BID #60 tablet 12/26/20 [Rx] Diltiazem [Cardizem CD] 120 mg PO DAILY #30 cap.cd 12/26/20 [Rx] Past Medical History - Past Health History Medical/Surgical History: Denies Medical/Surgical History HEENT History: Reports: Other (See Below) Other HEENT History: wears glasses Cardiovascular History: Reports: None Respiratory History: Reports: Sleep Apnea Other Respiratory History: uses CPAP Gastrointestinal History: Reports: Colon Polyp, GERD, Other (See Below) Other Gastrointestinal History: cholecystitis, reflux in the past, none recently Genitourinary History: Reports: Renal Calculus, Other (See Below) Other Genitourinary History: "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 They checked up on it" Musculoskeletal History: Reports: Fracture Other Musculoskeletal History: hx fx left arm Neurological History: Reports: None Psychiatric History: Reports: Anxiety, Depression Other Psychiatric History: depression and anxiety in the past, none recently Endocrine/Metabolic History: Reports: Obesity/BMI 30+ Hematologic History: Reports: None Immunologic History: Reports: None Oncologic (Cancer) History: Reports: None Dermatologic History: Reports: None - Infectious Disease History Infectious Disease History: Reports: Chicken Pox - Past Surgical History Head Surgeries/Procedures: Reports: None HEENT Surgical History: Reports: None Cardiovascular Surgical History: Reports: None Respiratory Surgical History: Reports: None GI Surgical History: Reports: Cholecystectomy, Colonoscopy, EGD Male Surgical History: Reports: None Endocrine Surgical History: Reports: None Musculoskeletal Surgical History: Reports: Other (See Below) Other Musculoskeletal Surgeries/Procedures:: Right Foot surgery Social & Family History - Family History Family Medical History: No Pertinent Family History HEENT: Reports: None Cardiac: Reports: PR Endocrine/Metabolic: Reports: Diabetes, type II - Caffeine Use Caffeine Use: Reports: Coffee - Living Situation & Occupation Living situation: Reports: with Significant Other Occupation: Employed ED ROS GENERAL - Review of Systems Review Of Systems: Comprehensive ROS is negative, except as noted in HPI. ED EXAM, GENERAL - Physical Exam Exam: See Below Free Text/Narrative:: My physical exam is in the HPI #1 Interpretation EKG Interpretation Comments: AG sinus rhythm heart rate 77 ID 160 QT duration 428 [place] 59 abnormal R wave progression in the precordium and peaked T waves. Impression no obvious acute injury Course - Vital Signs Last Recorded V/S: Last Vital Signs Temp 36.4 C 03/07/21 16:33 Pulse 81 03/07/21 16:33 Resp 18 03/07/21 16:33 BP 119/83 03/07/21 16:33 Pulse Ox 96 03/07/21 16:33 - Orders/Labs/Meds Labs: Laboratory Tests 03/07/21 03/07/21 Range/Units 13:55 15:45 Troponin I < 0.050 < 0.050 (0.000-0.056) ng/mL Meds: Medications Discontinued Medications Generic Name Dose Route Start Last Admin Trade Name Freq PRN Reason Stop Dose Admin Sodium Chloride 10 ml 03/07/21 13:16 Sodium Chloride 0.9% 10 Ml Syringe FLUSH ASDIRECTED PRN Keep Vein Open Sodium Chloride 2.5 ml 03/07/21 13:16 Sodium Chloride 0.9% 2.5 Ml Syringe FLUSH ASDIRECTED PRN Keep Vein Open Departure - Departure Time of Disposition: 16:47 Disposition: Home, Self-Care 01 Condition: Good Clinical Impression: Chest pain - Discharge Information Instructions: Nonspecific Chest Pain, Adult Referrals: Naresh Wright MD [Primary Care Provider] - Forms: ED Department Discharge Additional Instructions: [facility] - Primary Care [address] [place] [id number] [facility] [address] [place] [id number] The following information is given to patients seen in the emergency department who are being discharged to home. This information is to outline your options for follow-up care. We provide all patients seen in our emergency department with a follow-up referral. The need for follow-up, as well as the timing and circumstances, are variable de pending upon the specifics of your emergency department visit. If you don't have a primary care physician on staff, we will provide you with a referral. We always advise you to contact your personal physician following an emergency department visit to inform them of the circumstance of the visit and for follow-up with them and/or the need for any referrals to a consulting specialist. The emergency department will also refer you to a specialist when appropriate. This referral assures that you have the opportunity for follow-up care with a specialist. All of these measure are taken in an effort to provide you with optimal care, which includes your follow-up. Under all circumstances we always encourage you to contact your private physician who remains a resource for coordinating your care. When calling for follow-up care, please make the office aware that this follow-up is from your recent emergency room visit. If for any reason you are refused follow-up, please contact the [facility] Emergency Department at and asked to speak to the emergency department charge nurse. Sepsis Event Note (ED) - Evaluation Sepsis Screening Result: No Definite Risk - Focused Exam Vital Signs: Vital Signs Temp Pulse Resp BP Pulse Ox 03/07/21 16:33 36.4 C 81 18 119/83 96 03/07/21 15:15 69 129/85 95 03/07/21 14:45 71 129/90 94 L 03/07/21 14:15 74 94 L 03/07/21 13:45 69 18 137/87 95 03/07/21 13:02 36.4 C 80 18 148/97 H 96
[2021-03-07] MEDS ORDERED: Sodium Chloride 0.9% 10 ML Syringe FLUSH PRN (13:16)
[2021-03-07] MEDS ORDERED: Sodium Chloride 0.9% 2.5 ML Syringe FLUSH PRN (13:16)
--- NOTE | 2021-03-07 14:55 | CR ---
INDICATION: Chest pain. TECHNIQUE: Chest 1 views. COMPARISON: December 25, 2020. FINDINGS: Cardiovascular and mediastinum: Heart size and vasculature are normal in caliber and appearance. Lungs and pleural spaces: Lungs are clear. No sign of infiltrate or mass. No sign of pleural effusion. No pneumothorax. Bones and soft tissues: No significant findings. IMPRESSION: No acute findings and no significant changes from the prior exam. Dictated by Jl Campbell MD @ 03/07/2021 2:55:26 PM (Electronically Signed)
[2021-03-07 17:00] VITALS: BP 126/90; PULSE 76
== END 2021-03-07 17:01 | disposition home or self-care (01) ==
LOC: MW.ED 12:54
DX: R07.9 Chest pain, unspecified (principal); E66.9 Obesity, unspecified; Z68.35 Body mass index [BMI] 35.0-35.9, adult; Z88.0 Allergy status to penicillin; Z79.01 Long term (current) use of anticoagulants; Z79.899 Other long term (current) drug therapy
CPT/HCPCS: 36415; 71045; 71045-26; 84484; 93005; 99285-25

== ENCOUNTER 2021-07-19 01:15 | Emergency (ER) | payer OTHER ==
[2021-07-19 01:31] VITALS: BP 114/78; PULSE 90
[2021-07-19] MEDS ORDERED: Magnesium Oxide 400 MG Tab PO ONE (01:48)
[2021-07-19] MEDS ORDERED: Ketorolac 30 MG/ML SDV IM ONE (01:48)
== END 2021-07-19 03:08 | disposition home or self-care (01) ==
LOC: MW.ED 01:15
DX: R25.2 Cramp and spasm (principal); M79.651 Pain in right thigh; I48.91 Unspecified atrial fibrillation; I10 Essential (primary) hypertension; K21.9 Gastro-esophageal reflux disease without esophagitis; E66.9 Obesity, unspecified; Z68.36 Body mass index [BMI] 36.0-36.9, adult; Z79.01 Long term (current) use of anticoagulants; Z88.0 Allergy status to penicillin; Z79.899 Other long term (current) drug therapy; Z87.891 Personal history of nicotine dependence
CPT/HCPCS: 96372; 99283; A9270; J1885

== ENCOUNTER 2021-09-11 15:23 | Emergency (ER) | payer OTHER ==
[2021-09-11] MEDS ORDERED: Alum Hydro/Mag Hydro/Simeth XS 15 ML, Lidocaine 2% 5 ML PO ONE ×2 (16:05)
[2021-09-11 16:24] LABS: BLOOD UREA NITROGEN,BUN 19 mg/dL (7.0-18.0); CHLORIDE,CL 102 mmol/L (98-107); GLUCOSE RANDOM 89 mg/dL (74-106); POTASSIUM,K 3.8 mmol/L (3.5-5.1); SODIUM,NA 139 mmol/L (136-148)
[2021-09-11] MEDS ORDERED: Ondansetron 4 MG/2 ML SDV IVPUSH ONE (17:08)
[2021-09-11] MEDS ORDERED: Dicyclomine 10 MG Cap PO ONE (17:12)
[2021-09-12 00:24] VITALS: BP 132/78; PULSE 89
== END 2021-09-11 19:05 | disposition home or self-care (01) ==
LOC: MW.ED 15:23
DX: K30 Functional dyspepsia (principal); F17.210 Nicotine dependence, cigarettes, uncomplicated; F41.9 Anxiety disorder, unspecified; F32.A Depression, unspecified; K21.9 Gastro-esophageal reflux disease without esophagitis; I48.91 Unspecified atrial fibrillation; E66.9 Obesity, unspecified; Z68.22 Body mass index [BMI] 22.0-22.9, adult; Z79.899 Other long term (current) drug therapy; Z88.0 Allergy status to penicillin
CPT/HCPCS: 36415; 71045; 80053; 83735; 84484; 85025; 93005; 96374; 99285; A9270; J2405; 93010; 99283

== ENCOUNTER 2022-06-18 09:50 | Observation (INO) | payer OTHER ==
[2022-06-18 11:16] LABS: POTASSIUM,K 3.9 mmol/L (3.5-5.1)
[2022-06-18] MEDS ORDERED: Sodium Chloride 0.9% 10 ML Syringe FLUSH PRN (16:00)
[2022-06-18] MEDS ORDERED: Acetaminophen 325 MG Tab PO PRN (16:00)
[2022-06-18] MEDS ORDERED: Docusate Sodium 100 MG Cap PO PRN (16:00)
[2022-06-18] MEDS ORDERED: Ondansetron 4 MG/2 ML SDV IVPUSH PRN (16:00)
[2022-06-18] MEDS ORDERED: Sodium Chloride 0.9% 2.5 ML Syringe FLUSH PRN (16:00)
[2022-06-18 16:08] LABS: CORONAVIRUS COVID-19 NAA NEGATIVE (NEGATIVE); INFLUENZA A NAA NEGATIVE (NEGATIVE); INFLUENZA B NAA NEGATIVE (NEGATIVE)
[2022-06-18] MEDS ORDERED: Fluticasone NASAL Spray 16 GM Bottle NASBOTH SCH (16:15)
[2022-06-18 17:06] LABS: HEMOGLOBIN A1C 5.6 %
[2022-06-18] MEDS ORDERED: Enalapril 5 MG Tab PO SCH (21:00)
[2022-06-18] MEDS ORDERED: atorvaSTATin 20 MG Tab PO SCH (21:00)
[2022-06-18] MEDS: Apixaban 5 MG Tab PO SCH (21:22)
[2022-06-19 07:15] LABS: CARBON DIOXIDE,CO2 26.4 mmol/L (21.0-32.0); POTASSIUM,K 4.2 mmol/L (3.5-5.1)
[2022-06-19] MEDS ORDERED: Isosorbide Mononitrate 30 MG Tab.ER PO SCH (09:00)
[2022-06-19] MEDS ORDERED: Sertraline 100 MG Tab PO SCH (09:00)
[2022-06-19] MEDS ORDERED: Diltiazem 120 MG Cap.CD PO SCH (09:00)
[2022-06-19] MEDS ORDERED: Doxycycline 100 MG Cap PO SCH (09:30)
[2022-06-19] MEDS: Apixaban 5 MG Tab PO SCH (09:46)
[2022-06-19 11:29] VITALS: BP 120/84; PULSE 80
== END 2022-06-19 12:28 | disposition home or self-care (01) ==
LOC: MW.ED 09:50 → MW.MS 13:41
PROVIDERS: ADMIT Internal Medicine; ATTEND Internal Medicine
DX: G45.9 Transient cerebral ischemic attack, unspecified (principal); I10 Essential (primary) hypertension; G47.33 Obstructive sleep apnea (adult) (pediatric); E78.2 Mixed hyperlipidemia; I45.6 Pre-excitation syndrome; H81.22 Vestibular neuronitis, left ear; K21.9 Gastro-esophageal reflux disease without esophagitis; F32.A Depression, unspecified; F41.9 Anxiety disorder, unspecified; E66.9 Obesity, unspecified; G47.30 Sleep apnea, unspecified; I77.810 Thoracic aortic ectasia; Z99.89 Dependence on other enabling machines and devices; Z79.01 Long term (current) use of anticoagulants; Z79.899 Other long term (current) drug therapy; Z20.822 Contact with and (suspected) exposure to COVID-19; Z90.49 Acquired absence of other specified parts of digestive tract; Z98.890 Other specified postprocedural states; Z88.0 Allergy status to penicillin
CPT/HCPCS: 0240U; 36415; 70450; 70496; 70498; 70551; 73620; 80048; 80053; 80061; 82947; 83036; 83735; 84443; 84484; 85025; 93005; 93306; 97161; 99285; A9270; G0378; 93010

== ENCOUNTER 2022-10-07 05:41 | Emergency (ER) | payer OTHER ==
[2022-10-07] MEDS ORDERED: Sodium Chloride 0.9% 10 ML Syringe FLUSH PRN (05:58)
[2022-10-07] MEDS ORDERED: Sodium Chloride 0.9% 2.5 ML Syringe FLUSH PRN (05:58)
[2022-10-07] MEDS ORDERED: Nitroglycerin 0.4 MG Tab.SL SL PRN (05:59)
[2022-10-07] MEDS ORDERED: Aspirin 81 MG Tab.Chew PO ONE (05:59)
[2022-10-07 06:31] LABS: CARBON DIOXIDE,CO2 27.4 mmol/L (21.0-32.0)
[2022-10-07 08:57] VITALS: BP 130/82; PULSE 73
== END 2022-10-07 08:56 | disposition home or self-care (01) ==
LOC: MW.ED 05:41
DX: R07.2 Precordial pain (principal); R07.89 Other chest pain; E78.5 Hyperlipidemia, unspecified; I10 Essential (primary) hypertension; I48.91 Unspecified atrial fibrillation; E66.9 Obesity, unspecified; Z68.36 Body mass index [BMI] 36.0-36.9, adult; Z88.0 Allergy status to penicillin; Z79.01 Long term (current) use of anticoagulants; Z79.899 Other long term (current) drug therapy
CPT/HCPCS: 36415; 71045; 80048; 83735; 84484; 85025; 85610; 93005; 99285; A9270; J3490; 93010; 99283

== ENCOUNTER 2023-01-20 19:12 | Emergency (ER) | payer OTHER ==
[2023-01-20 19:54] LABS: BASOPHILS ABSOLUTE AUTO 0.1 K/uL (0.0-0.1); BASOPHILS PERCENT AUTO 0.9 % (0.0-1.5); EOSINOPHILS ABSOLUTE AUTO 0.2 K/uL (0.0-0.7); EOSINOPHILS PERCENT AUTO 3.3 % (0.0-7.0); HEMATOCRIT 38.7 % (38.0-50.0); HEMOGLOBIN 13.3 g/dL (13.0-17.0); LYMPHOCYTES ABSOLUTE AUTO 1.3 K/uL (0.6-2.4); LYMPHOCYTES PERCENT AUTO 19.8 % (16.0-40.0); MEAN CORPUSCULAR HEMOGLOBIN 28.7 pg (27.0-32.0); MEAN CORPUSCULAR HGB CONC 34.4 g/dL (31.0-37.0); MEAN CORPUSCULAR VOLUME 83.4 fL (80.0-98.0); MONOCYTES ABSOLUTE AUTO 0.7 K/uL (0.0-0.8); MONOCYTES PERCENT AUTO 9.8 % (0.0-15.0); NEUTROPHILS ABSOLUTE AUTO 4.4 K/uL (1.4-5.7); NEUTROPHILS PERCENT AUTO 66.2 % (48.0-80.0); NRBC ABSOLUTE 0 K/uL; PLATELET COUNT,PLT 173 K/uL (150-400); RED BLOOD CELL COUNT 4.64 M/uL (4.50-5.90); WHITE BLOOD CELL COUNT,WBC 6.66 K/uL (4.0-11.0)
[2023-01-20 20:08] LABS: A/G RATIO 0.9 (0.9-1.6); ALBUMIN 3.4 g/dL (3.4-5.0); BILIRUBIN TOTAL 0.7 mg/dL (0.2-1.0); CALCIUM 8.6 mg/dL (8.5-10.1); CREATININE 1.3 mg/dL (0.8-1.3); EST CRCL DRUG DOSING (CG) 71.71 mL/min; POTASSIUM,K 3.7 mmol/L (3.5-5.1)
[2023-01-20] MEDS ORDERED: Iopamidol 755 MG/ML 500 ML Multipack Bottle IVPUSH ONE (20:56)
[2023-01-20 23:25] VITALS: BP 134/86; PULSE 81
== END 2023-01-20 23:25 | disposition home or self-care (01) ==
LOC: MW.ED 19:12
DX: R07.9 Chest pain, unspecified (principal); R91.1 Solitary pulmonary nodule; E66.9 Obesity, unspecified; I10 Essential (primary) hypertension; Z79.01 Long term (current) use of anticoagulants; Z79.899 Other long term (current) drug therapy; Z88.0 Allergy status to penicillin; Z68.38 Body mass index [BMI] 38.0-38.9, adult
CPT/HCPCS: 36415; 71045; 71275; 80053; 84484; 85025; 85379; 93005; 99285; Q9967; 93010; 99284

== ENCOUNTER 2023-05-15 12:02 | Emergency (ER) | payer OTHER ==
[2023-05-15 14:01] VITALS: BP 166/109; PULSE 75
== END 2023-05-15 13:40 | disposition home or self-care (01) ==
LOC: MW.ED 12:02
DX: S67.22XA Crushing injury of left hand, initial encounter (principal); I10 Essential (primary) hypertension; I48.91 Unspecified atrial fibrillation; E66.9 Obesity, unspecified; Z90.49 Acquired absence of other specified parts of digestive tract; Z79.899 Other long term (current) drug therapy; Z88.0 Allergy status to penicillin; Z68.36 Body mass index [BMI] 36.0-36.9, adult; W20.8XXA Other cause of strike by thrown, projected or falling object, initial encounter
CPT/HCPCS: 73130-26-LT; 73130-LT; 99282; 99283

== ENCOUNTER 2023-07-04 06:41 | Emergency (ER) | payer OTHER ==
[2023-07-04 07:44] VITALS: BP 139/91; PULSE 80
== END 2023-07-04 07:42 | disposition home or self-care (01) ==
LOC: MW.ED 06:41
DX: M25.561 Pain in right knee (principal); E78.00 Pure hypercholesterolemia, unspecified; E66.9 Obesity, unspecified; Z88.0 Allergy status to penicillin; Z79.899 Other long term (current) drug therapy; Z90.49 Acquired absence of other specified parts of digestive tract; Z68.35 Body mass index [BMI] 35.0-35.9, adult
CPT/HCPCS: 99282; 99283

== ENCOUNTER 2023-07-14 17:37 | Emergency (ER) | payer OTHER ==
[2023-07-14] MEDS ORDERED: Sodium Chloride 0.9% 2.5 ML Syringe FLUSH PRN (18:07)
[2023-07-14] MEDS ORDERED: Sodium Chloride 0.9% 10 ML Syringe FLUSH PRN (18:07)
[2023-07-14 18:30] LABS: BASOPHILS ABSOLUTE AUTO 0.05 K/uL (0.00-0.20); BASOPHILS PERCENT AUTO 0.8 % (0.0-1.0); EOSINOPHILS ABSOLUTE AUTO 0.16 K/uL (0.00-0.45); EOSINOPHILS PERCENT AUTO 2.6 % (0.0-6.0); HEMATOCRIT 37.5 % (42.0-52.0); HEMOGLOBIN 13.3 g/dL (14.0-18.0); IMMATURE GRAN ABSOLUTE AUTO 0.01 K/uL (0.00-0.05); IMMATURE GRAN PERCENT AUTO 0.2 % (0.0-0.4); LYMPHOCYTES PERCENT AUTO 22.8 % (24.0-44.0); MEAN CORPUSCULAR HEMOGLOBIN 29.6 pg (28.0-32.0); MEAN CORPUSCULAR HGB CONC 35.5 g/dL (32.0-36.0); MEAN CORPUSCULAR VOLUME 83.3 fL (83.0-99.0); MEAN PLATELET VOLUME 8.9 fL (9.4-12.4); MONOCYTES PERCENT AUTO 8.1 % (0.0-8.0); NEUTROPHILS ABSOLUTE AUTO 4.02 K/uL (1.80-7.70); NEUTROPHILS PERCENT AUTO 65.5 % (41.0-71.0); PLATELET COUNT,PLT 189 K/uL (150-400); WHITE BLOOD CELL COUNT,WBC 6.14 K/uL (3.9-11.3)
[2023-07-14 18:50] LABS: INR 1.03 (0.86-1.11); PTT,PARTIAL THROMBOPLSTIN TIME 28.4 SEC (23.9-30.7)
[2023-07-14 18:56] LABS: A/G RATIO 1.1 (0.9-1.6); ALBUMIN 3.4 g/dL (3.4-5.0); BILIRUBIN TOTAL 0.5 mg/dL (0.2-1.0); CALCIUM 8.1 mg/dL (8.5-10.1); CARBON DIOXIDE,CO2 24.6 mmol/L (21.0-32.0); CREATININE 1.3 mg/dL (0.8-1.3); EST CRCL DRUG DOSING (CG) 71.71 mL/min; MAGNESIUM 1.6 mg/dL (1.8-2.4); PHOSPHORUS 3.8 mg/dL (2.6-4.7); POTASSIUM,K 3.5 mmol/L (3.5-5.1); PROTEIN TOTAL,TP 6.6 g/dL (6.4-8.2)
[2023-07-14 20:43] VITALS: BP 142/89; PULSE 87
== END 2023-07-14 20:41 | disposition home or self-care (01) ==
LOC: MW.ED 17:37
DX: R00.2 Palpitations (principal); I10 Essential (primary) hypertension; I48.91 Unspecified atrial fibrillation; K21.9 Gastro-esophageal reflux disease without esophagitis; E66.9 Obesity, unspecified; Z79.899 Other long term (current) drug therapy; Z88.0 Allergy status to penicillin; Z68.35 Body mass index [BMI] 35.0-35.9, adult
CPT/HCPCS: 36415; 71045; 71045-26; 80053; 83735; 83880; 84100; 84484; 85025; 85610; 85730; 93005; 93010; 99282; 99285

== ENCOUNTER 2023-12-04 20:14 | Emergency (ER) | payer OTHER ==
[2023-12-04 20:30] LABS: BASOPHILS ABSOLUTE AUTO 0.06 K/uL (0.00-0.20); BASOPHILS PERCENT AUTO 0.8 % (0.0-1.0); EOSINOPHILS ABSOLUTE AUTO 0.24 K/uL (0.00-0.45); EOSINOPHILS PERCENT AUTO 3.3 % (0.0-6.0); HEMATOCRIT 41.2 % (42.0-52.0); HEMOGLOBIN 14.1 g/dL (14.0-18.0); IMMATURE GRAN ABSOLUTE AUTO 0.01 K/uL (0.00-0.05); IMMATURE GRAN PERCENT AUTO 0.1 % (0.0-0.4); LYMPHOCYTES ABSOLUTE AUTO 1.97 K/uL (1.00-4.80); MEAN CORPUSCULAR HEMOGLOBIN 28.7 pg (28.0-32.0); MEAN CORPUSCULAR HGB CONC 34.2 g/dL (32.0-36.0); MEAN CORPUSCULAR VOLUME 83.7 fL (83.0-99.0); MEAN PLATELET VOLUME 9.5 fL (9.4-12.4); MONOCYTES ABSOLUTE AUTO 0.64 K/uL (0.00-0.80); MONOCYTES PERCENT AUTO 8.8 % (0.0-8.0); NEUTROPHILS ABSOLUTE AUTO 4.38 K/uL (1.80-7.70); PLATELET COUNT,PLT 183 K/uL (150-400); RED BLOOD CELL COUNT 4.92 M/uL (4.52-5.90)
[2023-12-04] MEDS: Sodium Chloride 0.9% 2.5 ML Syringe FLUSH PRN (20:43)
[2023-12-04] MEDS: Sodium Chloride 0.9% 10 ML Syringe FLUSH PRN (20:43)
[2023-12-04 20:54] LABS: ALBUMIN 3.6 g/dL (3.4-5.0); BILIRUBIN TOTAL 0.4 mg/dL (0.2-1.0); CALCIUM 8.7 mg/dL (8.5-10.1); CARBON DIOXIDE,CO2 26.2 mmol/L (21.0-32.0); CREATININE 1.5 mg/dL (0.8-1.3); EST CRCL DRUG DOSING (CG) 61.4 mL/min; PROTEIN TOTAL,TP 7.2 g/dL (6.4-8.2)
[2023-12-04] MEDS: amLODIPine 5 MG Tab PO ONE (20:57)
[2023-12-04] MEDS: Aspirin 81 MG Tab.Chew PO ONE (20:57)
[2023-12-04 23:54] VITALS: BP 143/92; PULSE 84
== END 2023-12-04 22:34 | disposition home or self-care (01) ==
LOC: MW.ED 20:14
DX: I10 Essential (primary) hypertension (principal); R07.9 Chest pain, unspecified; E78.00 Pure hypercholesterolemia, unspecified; E66.9 Obesity, unspecified; Z90.49 Acquired absence of other specified parts of digestive tract; Z88.0 Allergy status to penicillin; Z79.899 Other long term (current) drug therapy; Z68.36 Body mass index [BMI] 36.0-36.9, adult
CPT/HCPCS: 36415; 71045; 80053; 84484; 85025; 93005; 99285; A9270; J3490

== ENCOUNTER 2023-12-06 06:39 | Emergency (ER) | payer OTHER ==
[2023-12-06 08:01] LABS: BASOPHILS ABSOLUTE AUTO 0.05 K/uL (0.00-0.20); BASOPHILS PERCENT AUTO 0.9 % (0.0-1.0); EOSINOPHILS ABSOLUTE AUTO 0.17 K/uL (0.00-0.45); EOSINOPHILS PERCENT AUTO 2.9 % (0.0-6.0); HEMATOCRIT 41.1 % (42.0-52.0); HEMOGLOBIN 13.9 g/dL (14.0-18.0); IMMATURE GRAN ABSOLUTE AUTO 0.03 K/uL (0.00-0.05); IMMATURE GRAN PERCENT AUTO 0.5 % (0.0-0.4); LYMPHOCYTES ABSOLUTE AUTO 1.15 K/uL (1.00-4.80); LYMPHOCYTES PERCENT AUTO 19.9 % (24.0-44.0); MEAN CORPUSCULAR HEMOGLOBIN 28.4 pg (28.0-32.0); MEAN CORPUSCULAR HGB CONC 33.8 g/dL (32.0-36.0); MEAN PLATELET VOLUME 9.3 fL (9.4-12.4); MONOCYTES PERCENT AUTO 8.6 % (0.0-8.0); NEUTROPHILS ABSOLUTE AUTO 3.89 K/uL (1.80-7.70); NEUTROPHILS PERCENT AUTO 67.2 % (41.0-71.0); PLATELET COUNT,PLT 181 K/uL (150-400); RED BLOOD CELL COUNT 4.89 M/uL (4.52-5.90); WHITE BLOOD CELL COUNT,WBC 5.79 K/uL (3.9-11.3)
[2023-12-06] MEDS: Sodium Chloride 0.9% 2.5 ML Syringe FLUSH PRN (08:01)
[2023-12-06] MEDS: Sodium Chloride 0.9% 10 ML Syringe FLUSH PRN (08:01)
[2023-12-06 08:19] LABS: ALBUMIN 3.6 g/dL (3.4-5.0); BILIRUBIN TOTAL 0.3 mg/dL (0.2-1.0); CALCIUM 8.6 mg/dL (8.5-10.1); CARBON DIOXIDE,CO2 23.5 mmol/L (21.0-32.0); CREATININE 1.4 mg/dL (0.8-1.3); EST CRCL DRUG DOSING (CG) 65.79 mL/min; POTASSIUM,K 4.1 mmol/L (3.5-5.1); PROTEIN TOTAL,TP 7.2 g/dL (6.4-8.2); TSH ULTRASENSITIVE 1.83 uIU/mL (0.36-3.74)
[2023-12-06 08:44] LABS: CORONAVIRUS COVID-19 NAA NEGATIVE (NEGATIVE); INFLUENZA A NAA NEGATIVE (NEGATIVE); INFLUENZA B NAA NEGATIVE (NEGATIVE)
[2023-12-06] MEDS: Iopamidol 755 MG/ML 500 ML Multipack Bottle IVPUSH STA (08:51)
[2023-12-06 09:08] LABS: AMPHETAMINES SCREEN, URINE NEGATIVE (CUTOFF=500); BARBITURATE SCREEN,URINE NEGATIVE (CUTOFF=200); BENZODIAZEPINES SCREEN,URINE NEGATIVE (CUTOFF=150); BUPRENORPHINE SCREEN,URINE NEGATIVE (CUTOFF=10); METHADONE SCREEN, URINE NEGATIVE (CUTOFF=200); METHAMPHETAMINES SCREEN, URINE NEGATIVE (CUTOFF=500); OXYCODONE SCREEN,URINE NEGATIVE (CUT0FF=100); PCP SCREEN,URINE NEGATIVE (CUTOFF=25); THC SCREEN,URINE 20 NG/ML NEGATIVE (CUTOFF=50)
[2023-12-06] MEDS: Sodium Chloride 0.9% 1,000 ML IV ONE (09:57)
[2023-12-06] MEDS: diphenhydrAMINE 50 MG/ML SDV IVPUSH ONE (09:57)
[2023-12-06] MEDS: Metoclopramide 10 MG/2 ML SDV IVPUSH ONE (09:57)
[2023-12-06 12:27] VITALS: BP 109/64; PULSE 60
== END 2023-12-06 12:07 | disposition home or self-care (01) ==
LOC: MW.ED 06:39
DX: G44.209 Tension-type headache, unspecified, not intractable (principal); E78.00 Pure hypercholesterolemia, unspecified; E66.9 Obesity, unspecified; Z75.8 Other problems related to medical facilities and other health care; Z88.0 Allergy status to penicillin; Z79.899 Other long term (current) drug therapy; Z90.49 Acquired absence of other specified parts of digestive tract; Z68.36 Body mass index [BMI] 36.0-36.9, adult
CPT/HCPCS: 0240U; 36415; 70450; 70496; 70498; 80053; 80305; 84443; 84484; 85025; 93005; 96361; 96374; 96375; 99285; J1200; J2765; J3490; J7030; Q9967

== ENCOUNTER 2024-03-02 19:35 | Emergency (ER) | payer OTHER ==
[2024-03-02 20:02] LABS: BASOPHILS ABSOLUTE AUTO 0.07 K/uL (0.00-0.20); EOSINOPHILS PERCENT AUTO 2.8 % (0.0-6.0); HEMATOCRIT 37.5 % (42.0-52.0); HEMOGLOBIN 12.7 g/dL (14.0-18.0); IMMATURE GRAN ABSOLUTE AUTO 0.01 K/uL (0.00-0.05); IMMATURE GRAN PERCENT AUTO 0.1 % (0.0-0.4); MEAN CORPUSCULAR HEMOGLOBIN 28.6 pg (28.0-32.0); MEAN CORPUSCULAR HGB CONC 33.9 g/dL (32.0-36.0); MEAN CORPUSCULAR VOLUME 84.5 fL (83.0-99.0); MEAN PLATELET VOLUME 9.2 fL (9.4-12.4); MONOCYTES ABSOLUTE AUTO 0.61 K/uL (0.00-0.80); MONOCYTES PERCENT AUTO 8.6 % (0.0-8.0); NEUTROPHILS ABSOLUTE AUTO 4.48 K/uL (1.80-7.70); NEUTROPHILS PERCENT AUTO 63.5 % (41.0-71.0); PLATELET COUNT,PLT 160 K/uL (150-400); RED BLOOD CELL COUNT 4.44 M/uL (4.52-5.90); WHITE BLOOD CELL COUNT,WBC 7.07 K/uL (3.9-11.3)
[2024-03-02 20:30] LABS: A/G RATIO 1.1 (0.9-1.6); ALBUMIN 3.7 g/dL (3.4-5.0); BILIRUBIN TOTAL 0.4 mg/dL (0.2-1.0); CALCIUM 8.7 mg/dL (8.5-10.1); CREATININE 1.3 mg/dL (0.8-1.3); EST CRCL DRUG DOSING (CG) 70.85 mL/min; MAGNESIUM 1.8 mg/dL (1.8-2.4); POTASSIUM,K 3.8 mmol/L (3.5-5.1)
[2024-03-02] MEDS: Dexamethasone 4 MG Tab PO ONE (23:18)
[2024-03-02] MEDS: Acetaminophen 500 MG Tab PO ONE (23:18)
[2024-03-03 00:15] VITALS: BP 138/86; PULSE 63
== END 2024-03-02 23:20 | disposition home or self-care (01) ==
LOC: MW.ED 19:35
DX: S46.812A Strain of other muscles, fascia and tendons at shoulder and upper arm level, left arm, initial encounter (principal); M19.012 Primary osteoarthritis, left shoulder; R07.9 Chest pain, unspecified; G89.29 Other chronic pain; I10 Essential (primary) hypertension; E78.00 Pure hypercholesterolemia, unspecified; E66.9 Obesity, unspecified; Z86.79 Personal history of other diseases of the circulatory system; Z68.36 Body mass index [BMI] 36.0-36.9, adult; Z88.0 Allergy status to penicillin; Z79.01 Long term (current) use of anticoagulants; Z79.899 Other long term (current) drug therapy; Z90.49 Acquired absence of other specified parts of digestive tract; X58.XXXA Exposure to other specified factors, initial encounter
CPT/HCPCS: 36415; 71045; 73030; 80053; 83690; 83735; 83880; 84484; 85025; 93005; 99285; A9270; J8540; 93010; 99283

== ENCOUNTER 2024-03-04 21:23 | Emergency (ER) | payer OTHER ==
[2024-03-04] MEDS: LORazepam 0.5 MG Tab PO ONE (22:40)
[2024-03-05 00:09] LABS: BASOPHILS ABSOLUTE AUTO 0.04 K/uL (0.00-0.20); BASOPHILS PERCENT AUTO 0.3 % (0.0-1.0); EOSINOPHILS ABSOLUTE AUTO 0.04 K/uL (0.00-0.45); EOSINOPHILS PERCENT AUTO 0.3 % (0.0-6.0); HEMATOCRIT 38.5 % (42.0-52.0); HEMOGLOBIN 13.4 g/dL (14.0-18.0); IMMATURE GRAN ABSOLUTE AUTO 0.08 K/uL (0.00-0.05); IMMATURE GRAN PERCENT AUTO 0.6 % (0.0-0.4); LYMPHOCYTES ABSOLUTE AUTO 1.68 K/uL (1.00-4.80); LYMPHOCYTES PERCENT AUTO 13.3 % (24.0-44.0); MEAN CORPUSCULAR HEMOGLOBIN 29.3 pg (28.0-32.0); MEAN CORPUSCULAR HGB CONC 34.8 g/dL (32.0-36.0); MEAN CORPUSCULAR VOLUME 84.2 fL (83.0-99.0); MEAN PLATELET VOLUME 9.1 fL (9.4-12.4); MONOCYTES PERCENT AUTO 7.9 % (0.0-8.0); NEUTROPHILS PERCENT AUTO 77.6 % (41.0-71.0); PLATELET COUNT,PLT 205 K/uL (150-400); RED BLOOD CELL COUNT 4.57 M/uL (4.52-5.90); WHITE BLOOD CELL COUNT,WBC 12.64 K/uL (3.9-11.3)
[2024-03-05 00:32] LABS: A/G RATIO 1.1 (0.9-1.6); ALBUMIN 3.7 g/dL (3.4-5.0); BILIRUBIN TOTAL 0.3 mg/dL (0.2-1.0); CALCIUM 8.5 mg/dL (8.5-10.1); CARBON DIOXIDE,CO2 28.9 mmol/L (21.0-32.0); CREATININE 1.8 mg/dL (0.8-1.3); EST CRCL DRUG DOSING (CG) 51.17 mL/min; MAGNESIUM 1.8 mg/dL (1.8-2.4)
[2024-03-05 01:39] VITALS: BP 127/86; PULSE 69
== END 2024-03-05 01:38 | disposition home or self-care (01) ==
LOC: MW.ED 21:23
DX: R07.9 Chest pain, unspecified (principal); I10 Essential (primary) hypertension; I49.1 Atrial premature depolarization; F41.9 Anxiety disorder, unspecified; R79.89 Other specified abnormal findings of blood chemistry; I48.91 Unspecified atrial fibrillation; E78.00 Pure hypercholesterolemia, unspecified; E66.9 Obesity, unspecified; Z90.49 Acquired absence of other specified parts of digestive tract; Z79.899 Other long term (current) drug therapy; Z79.01 Long term (current) use of anticoagulants; Z88.0 Allergy status to penicillin; Z68.37 Body mass index [BMI] 37.0-37.9, adult
CPT/HCPCS: 36415; 80053; 83735; 83880; 84484; 85025; 93005; 99285; A9270; 93010; 99283

== ENCOUNTER 2024-03-23 20:35 | Emergency (ER) | payer OTHER ==
[2024-03-23 21:17] LABS: BASOPHILS ABSOLUTE AUTO 0.06 K/uL (0.00-0.20); BASOPHILS PERCENT AUTO 0.9 % (0.0-1.0); EOSINOPHILS ABSOLUTE AUTO 0.26 K/uL (0.00-0.45); EOSINOPHILS PERCENT AUTO 4.1 % (0.0-6.0); HEMATOCRIT 36.5 % (42.0-52.0); IMMATURE GRAN ABSOLUTE AUTO 0.01 K/uL (0.00-0.05); IMMATURE GRAN PERCENT AUTO 0.2 % (0.0-0.4); LYMPHOCYTES ABSOLUTE AUTO 1.62 K/uL (1.00-4.80); LYMPHOCYTES PERCENT AUTO 25.5 % (24.0-44.0); MEAN CORPUSCULAR HEMOGLOBIN 29.3 pg (28.0-32.0); MEAN CORPUSCULAR HGB CONC 35.6 g/dL (32.0-36.0); MEAN CORPUSCULAR VOLUME 82.4 fL (83.0-99.0); MEAN PLATELET VOLUME 9.5 fL (9.4-12.4); MONOCYTES ABSOLUTE AUTO 0.64 K/uL (0.00-0.80); MONOCYTES PERCENT AUTO 10.1 % (0.0-8.0); NEUTROPHILS ABSOLUTE AUTO 3.77 K/uL (1.80-7.70); NEUTROPHILS PERCENT AUTO 59.2 % (41.0-71.0); PLATELET COUNT,PLT 145 K/uL (150-400); RED BLOOD CELL COUNT 4.43 M/uL (4.52-5.90); WHITE BLOOD CELL COUNT,WBC 6.36 K/uL (3.9-11.3)
[2024-03-23 22:09] LABS: A/G RATIO 1.1 (0.9-1.6); ALBUMIN 3.5 g/dL (3.4-5.0); BILIRUBIN TOTAL 0.4 mg/dL (0.2-1.0); CALCIUM 8.7 mg/dL (8.5-10.1); CARBON DIOXIDE,CO2 22.8 mmol/L (21.0-32.0); CREATININE 1.1 mg/dL (0.8-1.3); EST CRCL DRUG DOSING (CG) 83.73 mL/min; POTASSIUM,K 3.5 mmol/L (3.5-5.1); PROTEIN TOTAL,TP 6.8 g/dL (6.4-8.2)
[2024-03-23 22:46] LABS: CORONAVIRUS COVID-19 NAA NEGATIVE (NEGATIVE); INFLUENZA A NAA NEGATIVE (NEGATIVE); INFLUENZA B NAA NEGATIVE (NEGATIVE)
[2024-03-23 23:15] VITALS: BP 136/97; PULSE 75
== END 2024-03-23 23:12 | disposition home or self-care (01) ==
LOC: MW.ED 20:35
DX: R07.9 Chest pain, unspecified (principal); I10 Essential (primary) hypertension; I48.91 Unspecified atrial fibrillation; E78.00 Pure hypercholesterolemia, unspecified; E66.9 Obesity, unspecified; Z79.899 Other long term (current) drug therapy; Z88.0 Allergy status to penicillin; Z75.8 Other problems related to medical facilities and other health care
CPT/HCPCS: 0240U; 36415; 71046; 80053; 83690; 84484; 85025; 93005; 99285; 93010; 99284

== ENCOUNTER 2024-03-30 21:36 | Emergency (ER) | payer OTHER ==
[2024-03-30] MEDS ORDERED: Sodium Chloride 0.9% 2.5 ML Syringe FLUSH PRN (22:05)
[2024-03-30] MEDS ORDERED: Sodium Chloride 0.9% 10 ML Syringe FLUSH PRN (22:05)
[2024-03-30 22:24] LABS: BASOPHILS ABSOLUTE AUTO 0.06 K/uL (0.00-0.20); EOSINOPHILS ABSOLUTE AUTO 0.24 K/uL (0.00-0.45); EOSINOPHILS PERCENT AUTO 4.1 % (0.0-6.0); HEMATOCRIT 36.4 % (42.0-52.0); HEMOGLOBIN 12.8 g/dL (14.0-18.0); IMMATURE GRAN ABSOLUTE AUTO 0.01 K/uL (0.00-0.05); IMMATURE GRAN PERCENT AUTO 0.2 % (0.0-0.4); LYMPHOCYTES PERCENT AUTO 27.1 % (24.0-44.0); MEAN CORPUSCULAR HEMOGLOBIN 29.1 pg (28.0-32.0); MEAN CORPUSCULAR HGB CONC 35.2 g/dL (32.0-36.0); MEAN CORPUSCULAR VOLUME 82.7 fL (83.0-99.0); MEAN PLATELET VOLUME 8.9 fL (9.4-12.4); MONOCYTES PERCENT AUTO 8.5 % (0.0-8.0); NEUTROPHILS ABSOLUTE AUTO 3.49 K/uL (1.80-7.70); NEUTROPHILS PERCENT AUTO 59.1 % (41.0-71.0); PLATELET COUNT,PLT 192 K/uL (150-400)
[2024-03-30] MEDS: fentaNYL 50 MCG/ML SDV IVPUSH ONE (22:34)
[2024-03-30 22:53] LABS: A/G RATIO 1.1 (0.9-1.6); ALBUMIN 3.5 g/dL (3.4-5.0); BILIRUBIN TOTAL 0.4 mg/dL (0.2-1.0); CALCIUM 8.8 mg/dL (8.5-10.1); CREATININE 1.2 mg/dL (0.8-1.3); EST CRCL DRUG DOSING (CG) 76.76 mL/min; POTASSIUM,K 3.4 mmol/L (3.5-5.1); PROTEIN TOTAL,TP 6.7 g/dL (6.4-8.2)
[2024-03-30 23:28] VITALS: BP 130/83; PULSE 77
[2024-03-30] MEDS: Morphine 4 MG/ML Syringe IVPUSH ONE (23:28)
== END 2024-03-30 23:41 | disposition home or self-care (01) ==
LOC: MW.ED 21:36
DX: M62.830 Muscle spasm of back (principal); I10 Essential (primary) hypertension; I48.91 Unspecified atrial fibrillation; E78.00 Pure hypercholesterolemia, unspecified; E66.9 Obesity, unspecified; Z79.01 Long term (current) use of anticoagulants; Z79.899 Other long term (current) drug therapy; Z88.0 Allergy status to penicillin; Z75.8 Other problems related to medical facilities and other health care
CPT/HCPCS: 36415; 71046; 80053; 84484; 85025; 93005; 96374; 96375; 99285; J2270; J3010; J3360; 93010; 99284

== ENCOUNTER 2024-09-04 18:27 | Emergency (ER) | payer OTHER ==
[2024-09-04 20:09] LABS: BASOPHILS ABSOLUTE AUTO 0.05 K/uL (0.00-0.20); BASOPHILS PERCENT AUTO 0.8 % (0.0-1.0); EOSINOPHILS ABSOLUTE AUTO 0.23 K/uL (0.00-0.45); EOSINOPHILS PERCENT AUTO 3.5 % (0.0-6.0); HEMATOCRIT 38.9 % (42.0-52.0); HEMOGLOBIN 13.2 g/dL (14.0-18.0); IMMATURE GRAN ABSOLUTE AUTO 0.01 K/uL (0.00-0.05); IMMATURE GRAN PERCENT AUTO 0.2 % (0.0-0.4); LYMPHOCYTES ABSOLUTE AUTO 1.65 K/uL (1.00-4.80); LYMPHOCYTES PERCENT AUTO 25.2 % (24.0-44.0); MEAN CORPUSCULAR HGB CONC 33.9 g/dL (32.0-36.0); MEAN CORPUSCULAR VOLUME 82.4 fL (83.0-99.0); MONOCYTES ABSOLUTE AUTO 0.52 K/uL (0.00-0.80); MONOCYTES PERCENT AUTO 7.9 % (0.0-8.0); NEUTROPHILS ABSOLUTE AUTO 4.09 K/uL (1.80-7.70); NEUTROPHILS PERCENT AUTO 62.4 % (41.0-71.0); PLATELET COUNT,PLT 206 K/uL (150-400); RED BLOOD CELL COUNT 4.72 M/uL (4.52-5.90); WHITE BLOOD CELL COUNT,WBC 6.55 K/uL (3.9-11.3)
[2024-09-04 20:39] LABS: A/G RATIO 1.1 (0.9-1.6); ALBUMIN 3.7 g/dL (3.4-5.0); BILIRUBIN TOTAL 0.5 mg/dL (0.2-1.0); CALCIUM 8.7 mg/dL (8.5-10.1); CARBON DIOXIDE,CO2 26.8 mmol/L (21.0-32.0); CREATININE 1.4 mg/dL (0.8-1.3); POTASSIUM,K 3.6 mmol/L (3.5-5.1); PROTEIN TOTAL,TP 7.1 g/dL (6.4-8.2)
[2024-09-04 20:40] LABS: PRO B-TYPE NATRIUR PEPT,BNPPRO 18 pg/mL (0-125)
[2024-09-04] MEDS: Iopamidol 755 MG/ML 500 ML Multipack Bottle IVPUSH ONE (21:00)
[2024-09-04] MEDS: Sodium Chloride 0.9% 1,000 ML IV ONE (21:00)
[2024-09-04 22:54] VITALS: BP 136/90; PULSE 72
== END 2024-09-04 22:54 | disposition home or self-care (01) ==
LOC: MW.ED 18:27
DX: R10.31 Right lower quadrant pain (principal); I48.91 Unspecified atrial fibrillation; E78.00 Pure hypercholesterolemia, unspecified; I10 Essential (primary) hypertension; Z90.49 Acquired absence of other specified parts of digestive tract; Z88.0 Allergy status to penicillin; Z79.01 Long term (current) use of anticoagulants; Z79.899 Other long term (current) drug therapy; Z85.528 Personal history of other malignant neoplasm of kidney
CPT/HCPCS: 36415; 71045; 71275; 74177; 80053; 83880; 84484; 85025; 93005; 96360; 99285; J7030; Q9967; 93010; 99284